=== PATIENT | male | born 1980 | race Two or more races ===

== ENCOUNTER 2020-11-24 10:55 | Outpatient (REF) | payer OTHER, SELFPAY ==
[2020-11-24 11:34] LABS: MANUAL DIFF FLAG NO
[2020-11-24 12:06] LABS: Basophils Percent Auto 0.6 % (0-2); Eosinophils Absolute Auto 0.1 X10*3/uL (0.0-0.4); Hematocrit 41.6 % (42-52); Hemoglobin 14.3 g/dl (14.0-18.0); Imm Gran Abs Auto 0.01 X10*3/uL (0.00-0.03); Imm Gran Pct Auto 0.2 % (0.0-0.4); Lymphocytes Absolute Auto 1.9 X10*3/uL (1.2-4.9); Mean Corpuscular HGB Conc 34.4 g/dl (31.0-36.0); Mean Corpuscular Volume 90.2 fL (80-98); Mean Platelet Volume 11.6 fL (9.4-12.4); Monocytes Absolute Auto 0.5 X10*3/uL (0.1-1.2); Monocytes Percent Auto 9.8 % (2-11); Neutrophils Absolute Auto 2.2 X10*3/uL (2.0-8.3); Neutrophils Percent Auto 46.4 % (45-73); Platelet Count 131 X10*3/uL (160-400); Red Blood Count 4.61 X10*6/uL (4.60-5.80); Red Cell Distribution Width 12.5 % (11.0-16.0); White Blood Count 4.7 X10*3/uL (4.8-10.8)
[2020-11-24 12:36] LABS: Alanine Aminotransferase 16 U/L (0-40); Albumin Level 4.1 g/dL (3.5-5.0); Alkaline Phosphatase 43 U/L (39-117); Anion Gap 13 (12-20); Aspartate Amino Transferase 17 U/L (5-37); Bilirubin Total 0.8 mg/dL (0.0-1.0); Blood Urea Nitrogen 17 mg/dL (9-16); Calcium 8.9 mg/dL (8.4-10.2); Carbon Dioxide 27 mmol/L (22-29); Chloride 108 mmol/L (96-108); Cholesterol 189 mg/dL; Estimated Glomerular Filt Rate > 60; Glucose Fasting 176 mg/dL (60-99); HDL Cholesterol 34 mg/dL; LDL Cholesterol Calculated 109 mg/dl; Potassium 4.5 mmol/L (3.3-5.1); Sodium 143 mmol/L (135-145); Total Protein 6.7 g/dL (6.5-8.0); Triglycerides 230 mg/dL
[2020-11-24 12:58] LABS: TSH reflex Free T4 1.04 uIU/mL (0.32-4.0)
[2020-11-24 13:15] LABS: Estimated Average Glucose 120 mg/dL; Hemoglobin A1c % 5.8 %
[2020-11-24 14:05] LABS: Creatinine Urine 225.65 mg/dL; Microalbum/Creatinine Ratio Ur 9.7 ug/mg cr
== END 2020-11-24 10:56 | disposition home or self-care (01) ==
LOC: HO.LAB 10:55
PROVIDERS: PCP Physician Assistant; Visit Provider Physician Assistant
DX: E11.9 Type 2 diabetes mellitus without complications (principal); E78.00 Pure hypercholesterolemia, unspecified
CPT/HCPCS: 36415; 80053; 80061; 82043; 83036; 84443; 85025

== ENCOUNTER 2022-01-12 15:08 | Emergency (ER) | payer OTHER, SELFPAY ==
--- NOTE | ~2022-01-12 | XR_ITS ---
EXAMINATION: XR CHEST CLINICAL INFORMATION: Covid 19 COMPARISON: Chest radiograph 08/20/2011 TECHNIQUE: Frontal view of the chest was obtained. FINDINGS: Again seen is a left chest wall neurostimulator device with a single lead extending up to the left neck. Since 2010, the device appears to have been replaced. Otherwise, no significant abnormality is noted involving the heart, lungs, mediastinum, bony thorax or soft tissues. XR/XR chest 1V IMPRESSION: Unremarkable examination. No evidence of Covid pulmonary disease.
[2022-01-12 15:20] VITALS: BP 135/87; PULSE 105; RESP 18; TEMP 37; O2SAT 99; BMI 30.8
[2022-01-12 16:04] LABS: COVID-19 Test Positive (Negative); IDNOW Serial# 16C4AD1C
[2022-01-12 16:16] LABS: Influenza A Negative (Negative); Influenza B2 Negative (Negative)
--- NOTE | 2022-01-12 16:42 | ED.URI ---
HPI - URI/Sore Throat General Chief Complaint: Upper Respiratory Symptoms Stated Complaint: cough low 02 Time Seen by Provider: 01/12/22 16:42 Source: patient Mode of arrival: ambulatory Limitations: no limitations History of Present Illness HPI Narrative: Patient otherwise healthy with history of epilepsy already received COVID vaccine including booster been sick for last 4 days with cold cough headache body aches checked his pulse ox at home on ambulation was 93% as low-grade fever no loss of taste sensation no other family member sick Related Data Home Medications Medication Instructions Recorded Confirmed divalproex 500 mg tablet,delayed 1,000 mg PO BID 08/24/20 11/23/20 release (Depakote) lamotrigine 100 mg tablet 100 mg PO BID 08/24/20 11/23/20 (Lamictal) cholecalciferol (vitamin D3) 50 50 mcg PO DAILY 06/29/21 mcg (2,000 unit) capsule Previous Rx's Medication Instructions Recorded atorvastatin 80 mg tablet 80 mg PO BEDTIME 30 Days #30 tab 11/23/20 cephalexin 500 mg capsule 500 mg PO Q12H 10 Days #20 cap 06/29/21 dulaglutide 0.75 mg/0.5 mL 0.75 mg (0.5 mL) SUBCUT QWEEK 28 12/13/21 subcutaneous pen injector Days #2 ml (Trulicity) albuterol sulfate 90 mcg/actuation 2 puff INHALATION Q4-6H PRN #8.5 g 01/12/22 aerosol inhaler (ProAir HFA) codeine 10 mg-guaifenesin 100 mg/5 10 ml PO Q6H PRN #237 ml 01/12/22 mL oral liquid dexamethasone 6 mg tablet 6 mg PO DAILY #6 tab 01/12/22 (Decadron) Allergies Allergy/AdvReac Type Severity Reaction Status Date / Time No Known Allergies Allergy Unknown NOT Verified 06/29/21 16:22 APPLICABLE Review of Systems Review of Systems: Yes all other systems are reviewed and are negative PMFSH Past Medical History Surgical History History of cholecystectomy Family History Family History Mother No problems noted. Father Prostate cancer Maternal Uncle CAD (coronary artery disease) Social History Social History Alcohol intake: never Patient Tobacco Use Status: Former Tobacco user Advance Directives: No Advance Directives Information Provided: No Physical Exam Vital Signs: Vital Signs: Last Vital Signs Temp 98.6 F 01/12/22 15:20 Pulse 105 H 01/12/22 17:11 Resp 18 01/12/22 17:11 BP 135/87 01/12/22 15:20 Pulse Ox 99 01/12/22 15:20 BMI result Body Mass Index 30.8 Appearance: Alert. Oriented X3. No acute distress. Eyes: No pallor or icterus ENT: Pharynx normal. Oral Mucosa moist Neck: Normal inspection. Neck supple. CVS: Normal heart rate and rhythm. Pulses normal. Respiratory: No respiratory distress. Equal air entry bilateral, no wheezing/rales/rhonchi Abdomen: Soft and nontender. Bowel sounds are present, Skin: Skin warm and dry. Normal skin color. Normal skin turgor. Extremities: No lower extremity edema. Neuro: Oriented X 3. MDM - URI/Sore Throat MDM Narrative Medical decision making narrative: Patient COVID-19 saturating 99% in the ER chest x-ray negative for any infiltrate says that patient feels more short of breath when ambulates will discharge patient home on supportive treatment Decadron albuterol inhaler cough syrup Lab Data Attestation: I reviewed the patient's lab results. Labs: Lab Results 01/12/22 01/12/22 Range/Units 15:42 15:42 COVID-19 ([facility]) Positive A (Negative) COVID-19 Clin Com See Note Influenza Type A (ERNESTINE) Negative (Negative) Influenza Type B (ERNESTINE) Negative (Negative) Influenza A & B Note See Note Discharge Plan Discharge Clinical Impression: COVID-19 Patient Disposition: Home, Self-Care Instructions: COVID-19 (Coronavirus Disease 2019) (ED) Additional Instructions: Social distancing as advised Use albuterol inhaler 2 puffs every 4-6 hours as needed for increased shortness of breath Decadron as advised Cough syrup as prescribed Stay hydrated take Tylenol Motrin for body aches Prescriptions: New dexamethasone [Decadron] 6 mg tablet 6 mg PO DAILY Qty: 6 0RF codeine-guaifenesin 10-100 mg/5 mL liquid 10 ml PO Q6H PRN (Reason: cough) Qty: 237 0RF albuterol sulfate [ProAir HFA] 90 mcg/actuation HFA aerosol inhaler 2 puff inhalation Q4-6H PRN (Reason: Wheezing) Qty: 8.5 0RF No Action Trulicity 0.75 mg/0.5 mL pen injector 0.75 mg subcut QWEEK 28 Days Qty: 2 0RF lamotrigine [Lamictal] 100 mg tablet 100 mg PO BID 0RF divalproex [Depakote] 500 mg tablet,delayed release (DR/EC) 1,000 mg PO BID 0RF atorvastatin 80 mg tablet 80 mg PO BEDTIME 30 Days Qty: 30 3RF cholecalciferol (vitamin D3) 50 mcg (2,000 unit) capsule 50 mcg PO DAILY 0RF cephalexin 500 mg capsule 500 mg PO Q12H 10 Days Qty: 20 0RF
[2022-01-12 17:11] VITALS: PULSE 105; RESP 18; O2SAT 99
[2022-01-12] MEDS: Albuterol Sulfate 90 MCG 8 GM INHALER 2 PUFF INHALE (17:11)
[2022-01-12] MEDS: dexAMETHasone 6 MG TABLET PO (17:18)
== END 2022-01-12 17:52 | disposition home or self-care (01) ==
PROVIDERS: Emergency Provider Internal Medicine; PCP Physician Assistant
DX: U07.1 COVID-19 (principal); R05.9 Cough, unspecified; Z99.81 Dependence on supplemental oxygen; Z79.899 Other long term (current) drug therapy; Z87.891 Personal history of nicotine dependence
CPT/HCPCS: 71045; 87502; 87635; 94640; 94664; 99283; 99284; J8540

== ENCOUNTER → 2022-11-11 13:37 | Outpatient (BNVA) | payer OTHER, SELFPAY | PROVIDERS: PCP Physician Assistant; Visit Provider Nurse Practitioner Family | DX: G40.909 Epilepsy, unspecified, not intractable, without status epilepticus (principal); G47.26 Circadian rhythm sleep disorder, shift work type | CPT/HCPCS: 99202 ==

== ENCOUNTER 2023-05-22 14:29 | Outpatient (AMB) | payer MEDICAID, SELFPAY ==
--- NOTE | 2023-05-22 14:39 | MHC.OFFVIS ---
Intake Vital Signs 05/22/23 14:40 Height 5 ft 9 in Weight 211 lb BMI 31.2 BP 130/84 Blood Pressure Location Rt brachial Position Sitting Pulse 85 Pulse Source Pulse Oximeter Pulse Oximetry (%) 98 Oxygen Delivery Method Room Air Intake Visit Reasons: 6m follow up Epilepsy - LVM Intake Note: Patient presents for 6 month follow up epilepsy. Patient states I haven't had any attacks since seeing her but I had an episode that I experienced as a child to have like an awake seizure where I feel spaced out and funny. . Allergies dulaglutide [From [facility]] Adverse Reaction (Intermediate, Verified 12/20/22 14:52) GI upset metformin Adverse Reaction (Intermediate, Verified 12/20/22 14:52) Diarrhea Medication List - Last Reconciled 05/22/23 by CALVIN Ledbetter atorvastatin 80 mg PO BEDTIME 30 days cholecalciferol (vitamin D3) 50 mcg PO DAILY divalproex (Depakote) 1,000 mg (2 x 500 mg) PO BID 90 days lamotrigine (Lamictal) 100 mg PO BID 90 days linagliptin (Tradjenta) 5 mg PO DAILY 90 days mupirocin calcium 2% 1 appl topical BID 15 days naproxen 500 mg PO BID 15 days HPI HPI Comments History of Present Illness Details 43-yr-old male presents for f/u visit, accompanied by his partner. Pt denies any significant interval medical changes. Pt reports that he has had 1 known episode in Apr- he was spacing out f/b feeling shaky. He was at work. 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 He denies any provoking factors. He is complaint w/ his AEDs- takes at 9pm and 5am (his break times at work), but may adjust schedule on his days off. He works from 7pm-7am. He has not had a convulsive episode in at least 6 years. Pt forgot to have labs done. [facility] Surgical History History of cholecystectomy Family History Mother No problems noted. Father Prostate cancer Maternal Uncle CAD (coronary artery disease) Other Mental health disorder Social History Housing: House Alcohol intake: never Patient Tobacco Use Status: Never used Tobacco e-Cigarette/Vaping Use: Never Used Second Hand Smoke Exposure: Yes service: No Current occupational status: employed Current occupation: [employer] Cognitive needs: No Hearing needs: No Vision needs: No Review of Systems Const All systems reviewed & are unremarkable except as noted in HPI and below Physical Exam Vital Signs: Last Vital Signs Pulse 85 05/22/23 14:40 BP 130/84 05/22/23 14:40 Pulse Ox 98 05/22/23 14:40 Oxygen Delivery Method Room Air 05/22/23 14:40 BMI result Body Mass Index 31.2 Const General: cooperative and no acute distress Orientation/consciousness: patient oriented x3 HEENT Head: Yes normocephalic Resp Effort & Inspection: normal respiratory effort and able to speak in complete sentences Neuro General: patient oriented x3, gait normal and CN's II-XI intact bilaterally Cognition (Neuro): normal cognition Motor exam (neuro): 5/5 motor strength present throughout Psych Appearance: grossly normal Mental Status: mental status grossly normal Speech and movement: Normal speech and movement present Affect: normal affect Attitude: cooperative Thought process: Normal thought process present Thought content: Normal thought content present Insight: Good insight present (Psych) Judgement: Good judgement present (Psych) Assessment & Plan Assessment & Plan (1) Epilepsy: Comment: last seizure > 6 yrs ago. h/o VPN. 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 All lab orders (including from PCP) printed and given to pt- he will do today. Note pt took his AEDs at 5am this am. Continue Lamotrigine 10omg bid- however adjust to q 12 hrs Continue Valproate 1000 mg bid- however adjust to q 12 hrs Melatonin prn- for sleep. Pt advsied to NOT drive within 6 months of any seizure activity w/ AMS. Pt to f/u in 6 months or sooner prn. 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
[2023-05-22 14:40] VITALS: BP 130/84; PULSE 85; O2SAT 98; BMI 31.2
== END 2023-05-22 15:23 | disposition home or self-care (01) ==
PROVIDERS: Visit Provider Nurse Practitioner Family
DX: G40.909 Epilepsy, unspecified, not intractable, without status epilepticus (principal); G47.26 Circadian rhythm sleep disorder, shift work type
CPT/HCPCS: 99214

== ENCOUNTER → 2023-05-22 14:29 | Outpatient (BNVA) | payer MEDICAID, SELFPAY | PROVIDERS: Visit Provider Nurse Practitioner Family | DX: G40.909 Epilepsy, unspecified, not intractable, without status epilepticus (principal); G47.26 Circadian rhythm sleep disorder, shift work type | CPT/HCPCS: 99212 ==

== ENCOUNTER 2023-06-27 21:53 | Emergency (ER) | payer MEDICAID, SELFPAY ==
--- NOTE | ~2023-06-27 | CT_ITS ---
EXAMINATION: CT ABDOMEN AND PELVIS WITH CONTRAST CLINICAL INFORMATION: Umbilical pain COMPARISON: None available. TECHNIQUE: Multidetector volumetric images were obtained from the superior aspect of the liver through the pubic symphysis following administration 85 mL of Omnipaque 350 intravenous contrast. Sagittal and coronal reformatted images were obtained on the technologist's workstation. Oral contrast: No This CT examination was performed using dose optimization techniques as appropriate, variously including the following: *Automated exposure control *Adjustment of mA and/or kV according to patient size (this includes techniques or standardized protocols for targeted exams where dose is matched to indication/reason for exam; i.e. extremities or head) *Use of iterative reconstruction technique DLP: 661 mGy-cm FINDINGS: LUNG BASES: Dependent bibasilar atelectasis. LIVER, GALLBLADDER, AND BILIARY TREE: The liver is normal in size, shape, and attenuation. No focal hepatic lesion or biliary ductal dilatation is present. Small calcified granulomas in the right lobe. Patient is status post cholecystectomy. PANCREAS: Unremarkable. SPLEEN: Unremarkable. ADRENAL GLANDS: Unremarkable. KIDNEYS AND URETERS: Bilateral nephrograms are symmetric. No hydronephrosis or obstructing calculus identified. BLADDER: Unremarkable. GASTROINTESTINAL TRACT: There is some fecalization of bowel loops in the central to right abdomen, though without significant dilation. Distalmost small bowel is collapsed, with transition in the lateral right lower quadrant on image 64/107. This could represent a developing small bowel obstruction. There is a thick-walled appearance of the collapsed ascending, descending, and sigmoid colon raising concern for colitis. Appendix is collapsed. Trace free fluid in the lower abdomen. No free air is seen. ABDOMINAL WALL: No significant hernia is appreciated. LYMPH NODES: Normal. VASCULAR: Unremarkable. PELVIC VISCERA: Unremarkable. OSSEOUS STRUCTURES: Unremarkable. CT/CT abdomen pelvis w IV con IMPRESSION: 1. Fecalization of small bowel loops in the central to right abdomen. Though bowel is not significantly dilated, there is transition to collapsed distal small bowel in the lateral right lower quadrant, therefore raising concern for a developing small bowel obstruction. 2. Thick-walled appearance of the collapsed ascending, descending, and sigmoid colon, suggesting colitis. 3. Trace free fluid in the lower abdomen.
[2023-06-27 22:01] VITALS: BP 134/83; PULSE 81; RESP 20; TEMP 36.7; O2SAT 97; BMI 31.7
[2023-06-27 22:21] LABS: MANUAL DIFF FLAG NO
[2023-06-27 22:30] LABS: Basophils Percent Auto 0.4 % (0-2); Eosinophils Absolute Auto 0.1 X10*3/uL (0.0-0.4); Eosinophils Percent Auto 1.4 % (0-4); Hemoglobin 15.1 g/dl (14.0-18.0); Imm Gran Abs Auto 0.01 X10*3/uL (0.00-0.03); Imm Gran Pct Auto 0.2 % (0.0-0.4); Lymphocytes Absolute Auto 1.4 X10*3/uL (1.2-4.9); Lymphocytes Percent Auto 24.1 % (20-40); Mean Corpuscular HGB Conc 34.3 g/dl (31.0-36.0); Mean Corpuscular Hemoglobin 29.7 pg (27.0-33.0); Mean Corpuscular Volume 86.6 fL (80.0-98.0); Mean Platelet Volume 11.3 fL (9.4-12.4); Monocytes Absolute Auto 0.5 X10*3/uL (0.1-1.2); Monocytes Percent Auto 8.8 % (2-11); Neutrophils Absolute Auto 3.7 x10*3/uL (2.0-8.3); Neutrophils Percent Auto 65.1 % (45-73); Platelet Count 112 X10*3/uL (160-400); Red Blood Count 5.08 X10*6/uL (4.60-5.80); Red Cell Distribution Width 12.3 % (11.0-16.0); White Blood Count 5.7 X10*3/uL (4.8-10.8)
[2023-06-27 22:43] LABS: Alanine Aminotransferase 24 U/L (0-40); Albumin Level 4.3 g/dL (3.5-5.0); Alkaline Phosphatase 53 U/L (39-117); Anion Gap 14 (12-20); Aspartate Amino Transferase 18 U/L (5-37); Bilirubin Direct 0.3 mg/dL (0.0-0.5); Bilirubin Total 0.9 mg/dL (0.0-1.0); Blood Urea Nitrogen 13 mg/dL (9-16); Calcium 10.1 mg/dL (8.4-10.2); Carbon Dioxide 28 mmol/L (22-29); Chloride 102 mmol/L (96-108); Creatinine Clr Calc Pharmacy 114.2; Estimated Glomerular Filt Rate > 60; Glucose Random 398 mg/dL (60-115); Potassium 4.7 mmol/L (3.3-5.1); Sodium 139 mmol/L (135-145); Total Protein 7.2 g/dL (6.5-8.0)
[2023-06-28 00:56] VITALS: BP 122/80; PULSE 72; RESP 17; TEMP 36.6; O2SAT 99
[2023-06-28] MEDS: iohexoL 350 MG/ML 100 ML INFUS..BTL 85 ML IV (02:06)
[2023-06-28] MEDS: 0.9 % Sodium Chloride 1,000 ML 999 ML IV (02:17)
--- NOTE | 2023-06-28 03:04 | ED_ITS ---
HPI - Abdominal Pain General Chief Complaint: Abdominal Pain Stated Complaint: sharp abd pain Time Seen by Provider: 06/28/23 01:01 Source: patient and family () Mode of arrival: ambulatory History of Present Illness HPI narrative: 43-year-old male who is noted to be diabetic states that he ate dinner at approximately 17:00 this evening and then began experiencing periumbilical discomfort that was nonradiating in nature and was associated with nausea but denies any vomiting and also reports an episode of diarrhea but otherwise denies any fevers or chills. Patient is status post prior cholecystectomy and otherwise denies any intra-abdominal surgeries. Related Data Home Medications Medication Instructions Recorded Confirmed cholecalciferol (vitamin D3) 50 50 mcg PO DAILY 06/29/21 05/22/23 mcg (2,000 unit) capsule Previous Rx's Medication Instructions Recorded linagliptin 5 mg tablet (Tradjenta) 5 mg PO DAILY 90 days #90 tabs 12/20/22 mupirocin calcium 2 % topical cream 1 appl topical BID 15 days #30 12/20/22 grams naproxen 500 mg tablet 500 mg PO BID 15 days #30 tabs 12/20/22 divalproex 500 mg tablet,delayed 1,000 mg (2 x 500 mg) PO BID 90 02/13/23 release (Depakote) days #360 tabs lamotrigine 100 mg tablet 100 mg PO BID 90 days #180 tabs 02/13/23 (Lamictal) atorvastatin 80 mg tablet 80 mg PO BEDTIME #90 tabs 06/08/23 Allergies Allergy/AdvReac Type Severity Reaction Status Date / Time [facility] AdvReac Intermediate GI upset Verified 12/20/22 14:52 metformin AdvReac Intermediate Diarrhea Verified 12/20/22 14:52 Review of Systems Review of Systems Pertinent positives and negatives as stated in HPI PMFSH Past Medical History Source: nursing notes reviewed Surgical History History of cholecystectomy Family History Family History Mother No problems noted. Father Prostate cancer Maternal Uncle CAD (coronary artery disease) Other Mental health disorder Social History Social History Housing: House Alcohol intake: never Patient Tobacco Use Status: Never used Tobacco Smoked in Last 30 Days: No e-Cigarette/Vaping Use: Never Used Second Hand Smoke Exposure: Yes Advance Directives: No Advance Directives Information Provided: No service: No Current occupational status: employed Current occupation: [employer] Cognitive needs: No Hearing needs: No Vision needs: No Physical Exam ED Vital Signs: Vital Signs - 24 hr 06/27/23 22:01 06/28/23 00:56 06/28/23 04:00 Temperature 98.0 F 97.8 F 98.2 F Pulse Rate 81 72 88 Respiratory Rate 20 17 Blood Pressure 134/83 122/80 124/82 Pulse Oximetry 97 99 99 Oxygen Delivery Method Room Air Room Air Room Air BMI result Body Mass Index 31.7 VITAL SIGNS: Reviewed. GENERAL: Well developed, well nourished, in no acute distress. HEAD: Normocephalic/atraumatic EYES: PERRLA, EOMI EARS: Ext canals without abnormality NOSE: Nares patent bilateral OROPHARYNX: no oral lesions noted, posterior pharynx clear NECK: Supple, no adenopathy LUNGS: Normal breath sounds. No adventitious sounds or accessory muscle use. SpO2<99> CARDIOVASCULAR: Regular rate and rhythm without noted murmurs ABDOMEN: Soft, periumbilical discomfort without rebound, non-distended with bowel sounds. MUSCULOSKELETAL: No tenderness, deformities, or effusions noted on gross inspection. EXTREMITIES: No cyanosis, clubbing or edema. SKIN: Inspection of the skin reveals no rashes NEUROLOGIC: Alert and oriented x 4. Strength and sensation to light touch were grossly intact x 4. Medical Decision Making Medical Decision Making MDM Narrative: 43-year-old male with history and clinical presentation, DDX: Gastroenteritis, less likely felt to be appendicitis but possibility of urinary tract infection/renal colic or unrelated pancreatitis. I reviewed all investigations and hematologic indices are negative for leukocytosis or left shift, there is no anemia but there is chronically stable thrombocytopenia. Chemistry indices are grossly within normal limits with the exception of hyperglycemia. There is no ALEKSANDER and electrolytes as well as liver enzymes are grossly within normal limits. There is no evidence of DKA or HHS. Patient did receive IV fluids and on re-evaluation is feeling much better. CT scan described the possibility of possible obstruction but patient reports that his pain has completely resolved, he has continued to pass flatus and have multiple loose stools which we attempted to send down for a GI panel but then he was unable to provide a sufficient sample. In addition, there is a suggestion of colitis which I feel given the absence of fever and leukocytosis is likely viral in nature. I discussed all results and findings with the patient and his at bedside, he is feeling better and he is ready to go home. He was strongly encouraged to follow-up with his primary care doctor. My interpretation is patient had viral colitis. Differential Diagnosis Differential Diagnoses: The differential diagnosis associated with the presentation includes Please see the discussion above Admission/Observation Consideration of admission/observation: Escalation of care including admission/observation considered Please see the discussion above Lab Data MDM Lab Attestation statement: I reviewed the patient's lab results. Please see the discussion above 06/27/23 22:18 06/27/23 22:18 Labs: Lab Results 06/27/23 06/28/23 Range/Units 22:18 03:45 WBC 5.7 (4.8-10.8) X10*3/uL RBC 5.08 (4.60-5.80) X10*6/uL Hgb 15.1 (14.0-18.0) g/dl Hct 44.0 (42.0-52.0) % MCV 86.6 (80.0-98.0) fL MCH 29.7 (27.0-33.0) pg MCHC 34.3 (31.0-36.0) g/dl RDW 12.3 (11.0-16.0) % Plt Count 112 L (160-400) X10*3/uL MPV 11.3 (9.4-12.4) fL Immature Gran % (Auto) 0.2 (0.0-0.4) % Neut % (Auto) 65.1 (45-73) % Lymph % (Auto) 24.1 (20-40) % [place] % (Auto) 8.8 (2-11) % Eos % (Auto) 1.4 (0-4) % Baso % (Auto) 0.4 (0-2) % Lymph # (Auto) 1.4 (1.2-4.9) X10*3/uL [place] # (Auto) 0.5 (0.1-1.2) X10*3/uL Eos # (Auto) 0.1 (0.0-0.4) X10*3/uL Baso # (Auto) 0.0 (0.0-0.2) X10*3/uL Abs Immat Gran (auto) 0.01 (0.00-0.03) X10*3/uL Absolute Neuts (auto) 3.7 (2.0-8.3) x10*3/uL Absolute Nucleated RBC 0.000 (0.0-0.012) X10*3/uL Nucleated RBC % (auto) 0.0 (0.0-0.2) /100WBC Sodium 139 (135-145) mmol/L Potassium 4.7 (3.3-5.1) mmol/L Chloride 102 (96-108) mmol/L Carbon Dioxide 28 (22-29) mmol/L Anion Gap 14 (12-20) BUN 13 (9-16) mg/dL Creatinine 0.95 (0.5-1.4) mg/dL Estim Creat Clear Calc 114.2 Estimated GFR > 60 POC Glucose 236 H (60-115) mg/dL Random Glucose 398 H* (60-115) mg/dL Calcium 10.1 D (8.4-10.2) mg/dL Total Bilirubin 0.9 (0.0-1.0) mg/dL Direct Bilirubin 0.3 (0.0-0.5) mg/dL AST 18 (5-37) U/L ALT 24 (0-40) U/L Alkaline Phosphatase 53 (39-117) U/L Total Protein 7.2 (6.5-8.0) g/dL Albumin 4.3 (3.5-5.0) g/dL Radiology Impression Discussion of test interpretation with radiology: I have reviewed the radiologist's reading. Radiologist Impression: Please see the discussion above External Record Review External record reviewed: Outpatient record, Prior outpatient labs and Prior outpatient radiology Chronic Conditions Patient?s care impacted by: Diabetes Medications Administered Discontinued Medications Generic Name Dose Route Start Last Admin Trade Name Freq PRN Reason Stop Dose Admin Sodium Chloride 1,000 mls @ 999 mls/hr 06/28/23 01:45 06/28/23 03:35 Ns IV 06/28/23 02:45 Infused .Q1H1M ANDREI Infusion Iohexol 85 ml 06/28/23 02:06 06/28/23 02:06 Iohexol 350 Mg/Ml 100 Ml Infus..Btl IV 06/28/23 02:07 85 ml ONCE ONE Administration Critical Care Time Critical Care Time Critical Care Time: Yes Total Critical Care Time: 30 Attestation: I personally attest to this time spent taking care of the patient. Discharge Plan Discharge Clinical Impression: Colitis Patient Disposition: Home, Self-Care Instructions: Colitis (ED) Additional Instructions: 1. Resume all home medications as prescribed. 2. Stick to a gentle diet for the next 24-48 hours. 3. Please follow-up with your primary care doctor in the next 2-3 days. 4. If you have any worsening of your symptoms to include fevers or chills to include nausea or vomiting please do not hesitate to return to the emergency room. Prescriptions: No Action divalproex [Depakote] 500 mg tablet,delayed release (DR/EC) 1,000 mg PO BID 90 Days Qty: 360 1RF lamotrigine [Lamictal] 100 mg tablet 100 mg PO BID 90 Days Qty: 180 1RF atorvastatin 80 mg tablet 80 mg PO BEDTIME Qty: 90 2RF cholecalciferol (vitamin D3) 50 mcg (2,000 unit) capsule 50 mcg PO DAILY Tradjenta 5 mg tablet 5 mg PO DAILY 90 Days Qty: 90 2RF mupirocin calcium 2 % cream 1 appl topical BID 15 Days Qty: 30 0RF naproxen 500 mg tablet 500 mg PO BID 15 Days Qty: 30 2RF Referrals: Daron Pardo PA-C [Primary Care Provider] -
[2023-06-28 03:49] LABS: Glucose, Whole Blood 236 mg/dL (60-115)
[2023-06-28 04:00] VITALS: BP 124/82; PULSE 88; TEMP 36.8; O2SAT 99
== END 2023-06-28 07:43 | disposition home or self-care (01) ==
PROVIDERS: Emergency Provider Student in an Organized Health Care Education/Training Program; PCP Physician Assistant
DX: K52.9 Noninfective gastroenteritis and colitis, unspecified (principal); R10.33 Periumbilical pain; E11.9 Type 2 diabetes mellitus without complications; E78.5 Hyperlipidemia, unspecified; Z90.49 Acquired absence of other specified parts of digestive tract; Z79.85 Long-term (current) use of injectable non-insulin antidiabetic drugs; Z79.84 Long term (current) use of oral hypoglycemic drugs
CPT/HCPCS: 36415; 74177; 80048; 80076; 82947; 85025; 96360; 99284; Q9967

== ENCOUNTER 2023-11-20 15:19 | Outpatient (AMB) | payer OTHER, SELFPAY ==
--- NOTE | 2023-11-20 15:23 | MHC.OFFVIS ---
Intake Vital Signs 11/20/23 15:24 Height 5 ft 9 in Weight 210 lb 2 oz BMI 31.0 BP 108/70 Blood Pressure Location Rt brachial Position Sitting Respiration 16 Pulse 93 Pulse Source Pulse Oximeter Pulse Oximetry (%) 98 Oxygen Delivery Method Room Air Intake Visit Reasons: 6 mnts f/u Intake Note: Pt presents for a 6 month follow up for epilepsy. Vamp Wetter Required: No Allergies dulaglutide [From [facility]] Adverse Reaction (Intermediate, Verified 11/20/23 15:24) GI upset metformin Adverse Reaction (Intermediate, Verified 11/20/23 15:24) Diarrhea Medication List - Last Reconciled 11/20/23 by Patricia Agrawal MD atorvastatin 80 mg PO BEDTIME cholecalciferol (vitamin D3) 50 mcg PO DAILY divalproex (Depakote) 1,000 mg (2 x 500 mg) PO BID 90 days lamotrigine (Lamictal) 100 mg PO BID 90 days linagliptin (Tradjenta) 5 mg PO DAILY 90 days mupirocin calcium 2% 1 appl topical BID 15 days naproxen 500 mg PO BID 15 days HPI HPI Comments History of Present Illness Details 43-yr-old male presents for f/u visit, accompanied by his partner. Pt denies any significant interval medical changes. No episodes since last visit and he has been taking his antiepileptics on time. He is complaint w/ his AEDs- takes at 8pm and 8am (his break times at work), but may adjust schedule on his days off. He works from 7pm-7am. He has not had a convulsive episode in at least 6 years. Reviewed labs - from 05/27 and 06/26 - he had mild decreased platelets and random glucose was high. He is a diabetic and followed up by PCP. COUNT INCLUDES [facility] Surgical History History of cholecystectomy Family History Mother No problems noted. Father Prostate cancer Maternal Uncle CAD (coronary artery disease) Other Mental health disorder Social History Housing: House Alcohol intake: never Patient Tobacco Use Status: Never used Tobacco e-Cigarette/Vaping Use: Never Used Second Hand Smoke Exposure: Yes service: No Current occupational status: employed Current occupation: [employer] Cognitive needs: No Hearing needs: No Vision needs: No Physical Exam Vital Signs: Last Vital Signs Pulse 93 11/20/23 15:24 Resp 16 11/20/23 15:24 BP 108/70 11/20/23 15:24 Pulse Ox 98 11/20/23 15:24 Oxygen Delivery Method Room Air 11/20/23 15:24 BMI result Body Mass Index 31.0 Const General: cooperative and no acute distress Orientation/consciousness: patient oriented x3 HEENT Head: Yes normocephalic Resp Effort & Inspection: normal respiratory effort and able to speak in complete sentences Neuro General: patient oriented x3, gait normal and CN's II-XI intact bilaterally Cognition (Neuro): normal cognition Motor exam (neuro): 5/5 motor strength present throughout Psych Appearance: grossly normal Mental Status: mental status grossly normal Speech and movement: Normal speech and movement present Affect: normal affect Attitude: cooperative Thought process: Normal thought process present Thought content: Normal thought content present Insight: Good insight present (Psych) Judgement: Good judgement present (Psych) Assessment & Plan Assessment & Plan (1) Epilepsy: Comment: last seizure > 6 yrs ago. h/o VPN. 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 Continue Lamotrigine 10omg bid- however adjust to q 12 hrs Continue Valproate 1000 mg bid- however adjust to q 12 hrs Melatonin prn- for sleep. Pt advsied to NOT drive within 6 months of any seizure activity w/ AMS. Pt to f/u in 6 months or sooner prn. Orders: Orders Comprehensive Met. Panel Today E11.9 - Type 2 diabetes mellitus without complications, G40.909 - Epilepsy, unspecified, not intractable, without status epilepticus Complete Blood Count Auto Diff Today E11.9 - Type 2 diabetes mellitus without complications, G40.909 - Epilepsy, unspecified, not intractable, without status epilepticus AMB Hemoglobin A1c Today E11.9 - Type 2 diabetes mellitus without complications, G40.909 - Epilepsy, unspecified, not intractable, without status epilepticus, Z13.9 - Encounter for screening, unspecified Coding Level of Care Code Est Pt Level 4 (45323) Diagnoses Nonintractable epilepsy without status epilepticus, unspecified epilepsy type G40.909 Epilepsy type: unspecified Intractability: not intractable Status epilepticus: without status epilepticus Shift work sleep disorder G47.26
[2023-11-20 15:24] VITALS: BP 108/70; PULSE 93; RESP 16; O2SAT 98; BMI 31.0
== END 2023-11-20 15:49 | disposition home or self-care (01) ==
PROVIDERS: PCP Physician Assistant; Visit Provider Psychiatry & Neurology Neurology
DX: G40.909 Epilepsy, unspecified, not intractable, without status epilepticus (principal); G47.26 Circadian rhythm sleep disorder, shift work type
CPT/HCPCS: 99214

== ENCOUNTER → 2023-11-20 15:19 | Outpatient (BNVA) | payer OTHER, SELFPAY | PROVIDERS: PCP Physician Assistant; Visit Provider Psychiatry & Neurology Neurology | DX: G40.909 Epilepsy, unspecified, not intractable, without status epilepticus (principal); G47.26 Circadian rhythm sleep disorder, shift work type | CPT/HCPCS: 99212 ==

== ENCOUNTER 2023-11-25 09:11 | Outpatient (REF) | payer OTHER, SELFPAY ==
[2023-11-25 09:38] LABS: MANUAL DIFF FLAG NO
[2023-11-25 09:50] LABS: Estimated Average Glucose 171 mg/dL; Hemoglobin A1c % 7.6 % (<6.0)
[2023-11-25 10:06] LABS: Valproate 92.2 mcg/mL (50.0-100.0)
[2023-11-25 10:08] LABS: Alanine Aminotransferase 21 U/L (0-40); Albumin Level 4.2 g/dL (3.5-5.0); Alkaline Phosphatase 47 U/L (39-117); Anion Gap 12 (12-20); Aspartate Amino Transferase 18 U/L (5-37); Bilirubin Total 0.8 mg/dL (0.0-1.0); Blood Urea Nitrogen 13 mg/dL (9-16); Calcium 9.4 mg/dL (8.4-10.2); Carbon Dioxide 29 mmol/L (22-29); Chloride 105 mmol/L (96-108); Cholesterol 107 mg/dL (<200); Estimated Glomerular Filt Rate > 60; Glucose Fasting 128 mg/dL (60-99); Glucose Random 128 mg/dL (60-115); HDL Cholesterol 44 mg/dL (>40); LDL Cholesterol Calculated 51 mg/dL (<100); Potassium 4.1 mmol/L (3.3-5.1); Sodium 142 mmol/L (135-145); Total Protein 6.8 g/dL (6.5-8.0); Triglycerides 64 mg/dL (<150)
[2023-11-25 10:22] LABS: Basophils Percent Auto 0.3 % (0-2); Eosinophils Absolute Auto 0.1 X10*3/uL (0.0-0.4); Eosinophils Percent Auto 1.9 % (0-4); Hematocrit 43.2 % (42.0-52.0); Hemoglobin 15.2 g/dl (14.0-18.0); Imm Gran Abs Auto 0.02 X10*3/uL (0.00-0.03); Imm Gran Pct Auto 0.3 % (0.0-0.4); Lymphocytes Absolute Auto 2.8 X10*3/uL (1.2-4.9); Lymphocytes Percent Auto 37.6 % (20-40); Mean Corpuscular HGB Conc 35.2 g/dl (31.0-36.0); Mean Platelet Volume 11.4 fL (9.4-12.4); Monocytes Absolute Auto 0.6 X10*3/uL (0.1-1.2); Monocytes Percent Auto 7.5 % (2-11); Neutrophils Absolute Auto 3.8 x10*3/uL (2.0-8.3); Neutrophils Percent Auto 52.4 % (45-73); Platelet Count 127 X10*3/uL (160-400); Red Blood Count 4.91 X10*6/uL (4.60-5.80); Red Cell Distribution Width 12.4 % (11.0-16.0); White Blood Count 7.3 X10*3/uL (4.8-10.8)
[2023-11-25 10:31] LABS: TSH reflex Free T4 1.63 uIU/mL (0.32-4.0)
[2023-11-29 09:03] LABS: Lamotrigine Lamictal 13.9 mcg/mL (2.5-15.0)
== END 2023-11-25 09:12 | disposition home or self-care (01) ==
LOC: HO.LAB 09:11
PROVIDERS: Nurse Practitioner Family; Psychiatry & Neurology Neurology; PCP Physician Assistant; Visit Provider Physician Assistant
DX: E11.9 Type 2 diabetes mellitus without complications (principal); G40.909 Epilepsy, unspecified, not intractable, without status epilepticus; E78.00 Pure hypercholesterolemia, unspecified
CPT/HCPCS: 36415; 80053; 80061; 80164; 80175; 83036; 84443; 85025; 85027

== ENCOUNTER 2024-01-25 08:24 | Outpatient (AMB) | payer OTHER, SELFPAY ==
[2024-01-25 08:34] VITALS: BP 126/78; PULSE 85; O2SAT 98; BMI 31.0
--- NOTE | 2024-01-25 08:34 | A.OFFPC_ITS ---
Vital Signs 01/25/24 08:34 Height 5 ft 9 in Weight 210 lb 0.6 oz BMI 31.0 BP 126/78 Blood Pressure Location Lt brachial Position Sitting Pulse 85 Pulse Source Pulse Oximeter Pulse Oximetry (%) 98 Oxygen Delivery Method Room Air Intake Visit Reasons: DM follow up Physical Optics Teacher Required: No Allergies dulaglutide [From [facility]] Adverse Reaction (Intermediate, Verified 01/25/24 08:44) GI upset metformin Adverse Reaction (Intermediate, Verified 01/25/24 08:44) Diarrhea Medication List - Last Reconciled 01/25/24 by Daron Pardo PA-C atorvastatin 80 mg PO BEDTIME cholecalciferol (vitamin D3) 50 mcg PO DAILY divalproex (Depakote) 1,000 mg (2 x 500 mg) PO BID 90 days lamotrigine (Lamictal) 100 mg PO BID 90 days linagliptin (Tradjenta) 5 mg PO DAILY 90 days mupirocin calcium 2% 1 appl topical BID 15 days naproxen 500 mg PO BID 15 days Tobacco use date assessed: 01/25/24 Dental Screening Dental Screen Date: 01/25/24 Did you have a dental visit in the last 12 months?: Yes Did you have a dental problem in the last 6 months where you did not have access to dental care?: No Was dental information given to patient?: Patient has dentist HPI DM follow up HPI Details Patient is a 43 year male here today for follow-up visit.? Patient has a past medical history significant for type 2 diabetes hyperlipidemia, history of epilepsy. Concern--> patient reports chronic abdominal pain and distension usually worse at night or after he eats. He did go to the ER in June of [address] of abdomen did show evidence colitis and fecalization of the small bowel. Will try to set him up with GI for possible colonoscopy to evaluate the colitis. Epilepsy: Followed by Neurology,? He has not had a seizure many years and continues on both divalproex and lamotrigine. .. Type 2 diabetes:? Has been out of Tradjenta for the past few months. Most recent A1c slightly elevated above 7.? Also metformin has given him GI upset. PLAN: Will restart Tradjenta 5 mg daily which helped him with glycemic control in the past. Laboratory Tests 08/24/20 06/29/22 12/20/22 08:45 15:50 14:31 RBC Hgb Random Glucose Fasting Glucose Hgb A1c (Clinic) 7.9 H 8.6 H 6.7 H Hemoglobin A1c % LDL Cholesterol, C alc TSH 06/27/23 11/25/23 22:18 09:36 RBC 4.91 Hgb 15.2 Random Glucose 398 H* 128 H Fasting Glucose 128 H Hgb A1c (Clinic) Hemoglobin A1c % 7.6 H LDL Cholesterol, C alc 51 TSH 1.63 PFSH Surgical History History of cholecystectomy Family History Mother No problems noted. Father Prostate cancer Maternal Uncle CAD (coronary artery disease) Other Mental health disorder Social History Housing: House Alcohol intake: never Patient Tobacco Use Status: Never used Tobacco e-Cigarette/Vaping Use: Never Used Second Hand Smoke Exposure: Yes service: No Current occupational status: employed Current occupation: [employer] Cognitive needs: No Hearing needs: No Vision needs: No Questionnaire Thrive Questionnaire Date Thrive assessed: 12/20/22 AUDIT C Alcohol Use Questionnaire (AUDIT-C) 1. How often do you have a drink containing alcohol?: Never 3. How often do you have six or more drinks on one occasion?: Never Total Score: 0 RICHARD-7 AMB Questionnaire RICHARD-7 Date RICHARD - 7 assessed: 12/20/22 Source: Developed by Drs. Freedom Trammell, Iwona Curtis, Ken Joy and colleagues, with an educational deisi from [employer]. Review of Systems Const Denies headache(s) Eyes Denies loss of vision ENT Denies vertigo, Denies dizziness, Denies headache(s) and Denies sore throat Card Denies chest pain, Denies leg edema and Denies lightheadedness Resp Denies cough, Denies hemoptysis and Denies wheezing GI Reports abdominal pain, Reports belching, Reports bloating and Reports GI cramping Denies dysuria, Denies urinary frequency and Denies urinary urgency Musc Denies arthralgias, Denies joint swelling, Denies numbness and Denies tingling Neuro Denies Abnormal speech present, Denies behavioral changes, Denies vertigo, Denies dizziness, Denies headache(s), Denies loss of vision, Denies memory loss, Denies numbness and Denies tingling Psych Denies anxiety, Denies behavioral changes, Denies depression, Denies memory loss and Denies panic attacks Luis F/Lymph Denies easy bleeding and Denies easy bruising Aller/Immun Denies wheezing Physical exam (Primary Care) Vital Signs: Last Vital Signs Pulse 85 01/25/24 08:34 BP 126/78 01/25/24 08:34 Pulse Ox 98 01/25/24 08:34 Oxygen Delivery Method Room Air 01/25/24 08:34 BMI result Body Mass Index 31.0 Tobacco/Smoking Status: Tobacco use Status Tobacco use date assessed 01/25/24 01/25/24 08:34 Patient Tobacco Use Status Never used Tobacco 01/25/24 08:34 e-Cigarette/Vaping Use Never Used 01/25/24 08:34 Thrive Assessment: Date of Thrive Assessment Date Thrive assessed 12/20/22 01/25/24 08:34 Const General: healthy appearing, no acute distress, alert and awake Nutritional Appearance: well nourished Orientation/consciousness: oriented to person, oriented to place and oriented to time HENMT Ears: TM's normal bilaterally General nose exam: Normal nasal mucous membranes and turbinates present Eyes Conjunctivae: conjunctivae normal Sclerae: sclerae normal Pupils: Equal, round and reactive pupils present Neck Neck: Yes no lymphadenopathy and Yes no JVD Thyroid: Thyroid normal Carotids: no bruits Resp Effort & Inspection: normal respiratory effort and not tachypneic Auscultation: no crackles, no rales, no rhonchi and no wheezes Cardio Rate: regular rate Rhythm: regular rhythm Heart sounds: no murmurs and normal S1 and S2 GI Palpation (GI): Soft to palpation, nontender, no hepatomegaly and no splenomegal y Auscultation: normal bowel sounds Skin General skin exam: no rashes or lesions noted and dry skin Neuro General: oriented to person, oriented to place and oriented to time Cranial nerves: Yes Equal, round and reactive pupils present Speech: No Abnormal speech present Gait exam (Neuro): Normal gait present Motor exam (neuro): no tremor noted Extrem Right upper extremity: full ROM Left upper extremity: full ROM Right lower extremity: full ROM; no edema Left lower extremity: full ROM; no edema Psych Mental Status: mental status grossly normal Speech and movement: Normal speech and movement present Affect: normal affect Attitude: cooperative Thought process: Normal thought process present Assessment and Plan Assessment & Plan (1) DMII (diabetes mellitus, type 2): Code(s): E11.9 - Type 2 diabetes mellitus without complications Qualifiers: Diabetes mellitus buttermaker continuous churn insulin use: without buttermaker continuous churn use Diabetes mellitus complication status: without complication Qualified Code(s): E11.9 - Type 2 diabetes mellitus without complications Plan: Patient's type 2 diabetes controlled with current dose of Tradjenta 5 mg. Goal A1c to be below 7.0 (2) Epilepsy: Comment: last seizure > 6 yrs ago. h/o VPN. Code(s): G40.909 - Epilepsy, unspecified, not intractable, without status epilepticus Qualifiers: Epilepsy type: unspecified Intractability: not intractable Status epilepticus: without status epilepticus Qualified Code(s): G40.909 - Epilepsy, unspecified, not intractable, without status epilepticus Plan: Patient followed by Neurology. Continues on Depakote and Lamictal and has not had any seizure activity for over 7 years. (3) HLD (hyperlipidemia): Code(s): E78.5 - Hyperlipidemia, unspecified Qualifiers: Hyperlipidemia type: pure hypercholesterolemia Qualified Code(s): E78.00 - Pure hypercholesterolemia, unspecified Plan: Most recent lipid panel showing excellent control his total cholesterol and LDL. Continues on high-dose statin therapy. Goal LDL to be below 100 (4) Obese: Code(s): E66.9 - Obesity, unspecified Qualifiers: Obesity type: due to excess calories Obesity classification: adult class 1 (BMI 30 - 34.9) Serious obesity comorbidity presence: with serious comorbidity Body mass index: BMI 31.0-31.9 Qualified Code(s): E66.09 - Other obesity due to excess calories; Z68.31 - Body mass index [BMI] 31.0-31.9, adult Plan: Patient does understand his BMI is over 30 will continue working on lifestyle modifications to reduce his weight. (5) Abdominal discomfort: Code(s): R10.9 - Unspecified abdominal pain (6) Colitis: Code(s): K52.9 - Noninfective gastroenteritis and colitis, unspecified Plan: As per HPI, patient experiencing abdominal pain and distention around his mid abdomen. He did present to the ER in the fall of [address] of abdomen did show fecalization of the small bowel and evidence of colitis. Will try to set him up with Gastroenterology for possible colonoscopy due to the continue GI discomfort and CT evidence of colitis. Orders: Orders Comprehensive [place]. Panel Fast Today E11.9 - Type 2 diabetes mellitus without complications Hemoglobin A1c Today E11.9 - Type 2 diabetes mellitus without complications Microalbumin, Random (w Creat) Today E11.9 - Type 2 diabetes mellitus without complications Erythrocyte Sedimentation Rate Today K52.9 - Noninfective gastroenteritis and colitis, unspecified Transglutaminase IgA Today K52.9 - Noninfective gastroenteritis and colitis, unspecified, R14.0 - Abdominal distension (gaseous) Endomysial IgA rflx Titer Today K52.9 - Noninfective gastroenteritis and colitis, unspecified, R14.0 - Abdominal distension (gaseous) Lipid Panel Today E78.00 - Pure hypercholesterolemia, unspecified Transglutaminase Ab IgG Today K52.9 - Noninfective gastroenteritis and colitis, unspecified, R14.0 - Abdominal distension (gaseous) Referrals Ophthalmology Referral E11.9 - Type 2 diabetes mellitus without complications Gastroenterology Referral K52.9 - Noninfective gastroenteritis and colitis, unspecified Medications: Refilled linagliptin (Tradjenta) 5 mg PO DAILY 90 days 90 tabs 2RF E11.9 - Type 2 diabetes mellitus without complications Patient Instructions: Goal: A1c to be below 7.0 Barriers: Adherence to physical activity and healthy eating habits. Coding Level of Care Code Est Pt Level 4 (14261) Diagnoses Type 2 diabetes mellitus without complication, without long-term current use of insulin E11.9 Diabetes mellitus skilled nursing insulin use: without buttermaker continuous churn use Diabetes mellitus complication status: without complication Nonintractable epilepsy without status epilepticus, unspecified epilepsy type G40.909 Epilepsy type: unspecified Intractability: not intractable Status epilepticus: without status epilepticus Pure hypercholesterolemia E78.00 Hyperlipidemia type: pure hypercholesterolemia Class 1 obesity due to excess calories with serious comorbidity and body mass index (BMI) of 31.0 to 31.9 in adult E66.09; Z68.31 Obesity type: due to excess calories Obesity classification: adult class 1 (BMI 30 - 34.9) Serious obesity comorbidity presence: with serious comorbidity Body mass index: BMI 31.0-31.9 Abdominal discomfort R10.9 Colitis K52.9
== END 2024-01-25 09:08 | disposition home or self-care (01) ==
PROVIDERS: PCP Physician Assistant; Visit Provider Physician Assistant
DX: E11.9 Type 2 diabetes mellitus without complications (principal); G40.909 Epilepsy, unspecified, not intractable, without status epilepticus; E66.09 Other obesity due to excess calories; Z68.31 Body mass index [BMI] 31.0-31.9, adult; R10.9 Unspecified abdominal pain; K52.9 Noninfective gastroenteritis and colitis, unspecified
CPT/HCPCS: 99214

== ENCOUNTER 2024-03-26 10:29 | Outpatient (AMB) | payer OTHER, SELFPAY ==
--- NOTE | 2024-03-26 10:35 | MHC.OFFVIS ---
Vital Signs 03/26/24 10:40 Height 5 ft 9 in Weight 207 lb 3.752 oz BMI 30.6 BP 130/74 Blood Pressure Location Lt brachial Position Sitting Pulse 63 Intake Visit Reasons: Noninfective gastroenteritis and colitis, Intake Note: New patient in office today for gastroenteritis and colitis. CC: Patient states that he was seen at the ED last year in June and was told that he had colitis and gastroenteritis. Patient reports that he went to the ED d/t a very strong epigastric pain, vomiting, and diarrhea. He also reports diarrhea alternating with constipation, gas, abdominal bloating, acid reflux, and heartburn. 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 He is referred by Daron Pardo. PMX Obesity Diabetes Thrombocytopenia (? from seizure drugs) HIgh cholesterol Epilepsy * SURGICAL HISTORY Cholecystectomy Vagus nerve stim for epilepsy * ALLERGIES Trulicity Metformin - vdiarrhea * [employer] LABS: Laboratory Tests 11/25/23 09:36 WBC 7.3 Hgb 15.2 Hct 43.2 Plt Count 127 L Estimated GFR > 60 Total Bilirubin 0.8 AST 18 ALT 21 Alkaline Phosphatase [address] ABD AND PELVIS 06/28/23 FINDINGS: LUNG BASES: Dependent bibasilar atelectasis. LIVER, GALLBLADDER, AND BILIARY TREE: The liver is normal in size, shape, and attenuation. No focal hepatic lesion or biliary ductal dilatation is present. Small calcified granulomas in the right lobe. Patient is status post cholecystectomy. PANCREAS: Unremarkable. SPLEEN: Unremarkable. ADRENAL GLANDS: Unremarkable. KIDNEYS AND URETERS: Bilateral nephrograms are symmetric. No hydronephrosis or obstructing calculus identified. BLADDER: Unremarkable. GASTROINTESTINAL TRACT: There is some fecalization of bowel loops in the central to right abdomen, though without significant dilation. Distalmost small bowel is collapsed, with transition in the lateral right lower quadrant on image 64/107. This could represent a developing small bowel obstruction. There is a thick-walled appearance of the collapsed ascending, descending, and sigmoid colon raising concern for colitis. Appendix is collapsed. Trace free fluid in the lower abdomen. No free air is seen. ABDOMINAL WALL: No significant hernia is appreciated. LYMPH NODES: Normal. VASCULAR: Unremarkable. PELVIC VISCERA: Unremarkable. OSSEOUS STRUCTURES: Unremarkable. CT/CT abdomen pelvis w IV con IMPRESSION: 1. Fecalization of small bowel loops in the central to right abdomen. Though bowel is not significantly dilated, there is transition to collapsed distal small bowel in the lateral right lower quadrant, therefore raising concern for a developing small bowel obstruction. 2. Thick-walled appearance of the collapsed ascending, descending, and sigmoid colon, suggesting colitis. 3. Trace free fluid in the lower abdomen. TODAY'S VISIT He has had years of gas and diarrhea since he had his GB out in 2004. Ever since then his stomach has never been the same. Recently he has started vomiting more, sheila since starting Trulicity; but this stopped with the stopping the Trulicity. When he had pain, it was in the upper abd and was colicky and intense. He has had other attacks but the ER visit was the worse but he has not had an attack for a time. He gets a lot of bloating, but milk makes it worse. He has lost weight, partly r/t changing his diet for diabetes, and he was on Trulicity for almost a year. He also has a physical job. He does not know much about his mother's medical history but there is no history of colitis or colon cancer on his father's side. Constipation really happens much more often than diarrhea; he frequently will not move his bowels more than once a week sometimes twice a week. When he initially moves his bowels the stool is quite hard and the diarrhea seems to follow this. So it sounds like constipation is the dominant process. He has tried [id number] laxative such as fiber, senna, bisacodyl, MiraLax, and Colace without good effect. Will get a colonoscopy since he has of age to prevent colon cancer I am not terribly convinced that he has a true colitis that is chronic given his symptom presentation however the colonoscopy will be diagnostic for this. There are no prior problems with anesthesia or sedation. He denies any cardiac or respiratory problems. No ID problems. ROV 2-3 weeks to evaluate Epifanio [facility] Medical History (Updated 04/18/24 @ 10:20 by CRYSTAL Escobedo) Seizures Colitis Diabetes Elevated cholesterol Infection of nose Cellulitis Left wrist tendinitis Family history of coronary arteriosclerosis Surgical History H/O colonoscopy History of cholecystectomy Family History Mother No problems noted. Father Prostate cancer Maternal Uncle CAD (coronary artery disease) Paternal Uncle Bone cancer Paternal Aunt Ovarian cancer Paternal Aunt Thyroid cancer Paternal Aunt Breast cancer Other Mental health disorder Social History Housing: House Alcohol intake: current Alcohol intake frequency: holidays/special occasions only Patient Tobacco Use Status: Never used Tobacco e-Cigarette/Vaping Use: Never Used Second Hand Smoke Exposure: Yes service: No Current occupational status: employed Current occupation: [employer] Cognitive needs: No Hearing needs: No Vision needs: No Review of Systems Const Denies fatigue, Denies fever(s), Denies night sweats, Denies poor appetite and Denies weight loss ENT Reports Normal hearing present, Denies dental pain, Denies dysphagia, Denies hearing loss, Denies mouth pain, Denies odynophagia, Denies throat swelling, Denies tongue swelling and Reports other (Dentition adequate) Card Reports no additional complaints Resp Reports no additional complaints GI Details: Denies abdominal pain, Denies melena, Reports bloating, Denies hematochezia, Reports constipation, Reports GI cramping, Denies dysphagia, Denies excessive flatus, Denies early satiety, Reports heartburn, Denies diarrhea, Denies nausea, Denies odynophagia, Denies vomiting and Denies hematemesis Skin/Breast Denies pruritus, Denies lesions, Denies rash and Denies jaundice Neuro Reports Normal hearing present and Denies Abnormal speech present Endo Denies fatigue Aller/Immun Denies throat swelling and Denies tongue swelling Physical Exam Vital Signs: Last Vital Signs Pulse 63 03/26/24 10:40 BP 130/74 03/26/24 10:40 BMI result Body Mass Index 30.6 Const General: cooperative, no acute distress, well developed and well groomed Nutritional Appearance: well nourished and obese Orientation/consciousness: oriented to person, oriented to place and oriented to time Limitations: No language barrier HEENT Head: Yes normocephalic and Yes atraumatic Eyes General: appearance normal, both eyes and all related structures Pupils: Equal, round and reactive pupils present Neck Neck: Yes normal visual inspection and Yes no lymphadenopathy Thyroid: Thyroid normal Resp Effort & Inspection: normal respiratory effort and able to speak in complete sentences Auscultation: clear to auscultation bilaterally Cardio Rate: regular rate Rhythm: regular rhythm Heart sounds: Normal, physiologic split S2 sound present Peripheral pulses: radial pulses present and posterior tibial pulses present GI Inspection: No distended and No Abdominal panniculus present Palpation (GI): Soft to palpation, nontender, no guarding, not rigid and No hepatosplenomegaly present Percussion: Yes normal to percussion Auscultation: normal bowel sounds Rectal Exam - Male: Yes deferred Skin General skin exam: no rashes or lesions noted, turgor normal, skin not dry, no jaundice, No spider nevi and no striae Rashes: no rashes Nails: normal Neuro General: oriented to person, oriented to place and oriented to time Cranial nerves: Yes Equal, round and reactive pupils present and Yes Normal hearing present Speech: No Abnormal speech present Extrem General: Yes normal to inspection, No clubbing, No cyanosis and No edema Psych Appearance: grossly normal and well kempt Mental Status: mental status grossly normal Speech and movement: Normal speech and movement present Affect: normal affect Attitude: cooperative Thought process: Normal thought process present and not confabulating Thought content: Normal thought content present Insight: Fair insight present (Psych) and Limited insight present (Psych) Judgement: Fair judgement present (Psych) and Limited judgement present (Psych) Assessment & Plan Assessment & Plan (1) Epilepsy: Comment: last seizure > 6 yrs ago. h/o VPN. Code(s): G40.909 - Epilepsy, unspecified, not intractable, without status epilepticus Category: Medical Qualifiers: Epilepsy type: unspecified Intractability: not intractable Status epilepticus: without status epilepticus Qualified Code(s): G40.909 - Epilepsy, unspecified, not intractable, without status epilepticus (2) Epilepsy: Comment: last seizure > 6 yrs ago. h/o VPN. Code(s): G40.909 - Epilepsy, unspecified, not intractable, without status epilepticus Category: Medical Qualifiers: Epilepsy type: unspecified Intractability: not intractable Status epilepticus: without status epilepticus Qualified Code(s): G40.909 - Epilepsy, unspecified, not intractable, without status epilepticus (3) Colitis: Code(s): K52.9 - Noninfective gastroenteritis and colitis, unspecified Category: Medical (4) Thrombocytopenia: Comment: ? r/t seizure meds Code(s): D69.6 - Thrombocytopenia, unspecified Category: Medical Plan He has had years of gas and diarrhea since he had his GB out in 2004. Ever since then his stomach has never been the same. Recently he has started vomiting more, sheila since starting Trulicity; but this stopped with the stopping the Trulicity. When he had pain, it was in the upper abd and was colicky and intense. He has had other attacks but the ER visit was the worse but he has not had an attack for a time. He gets a lot of bloating, but milk makes it worse. He has lost weight, partly r/t changing his diet for diabetes, and he was on Trulicity for almost a year. He also has a physical job. He does not know much about his mother's medical history but there is no history of colitis or colon cancer on his father's side. Constipation really happens much more often than diarrhea; he frequently will not move his bowels more than once a week sometimes twice a week. When he initially moves his bowels the stool is quite hard and the diarrhea seems to follow this. So it sounds like constipation is the dominant process. He has tried [id number]-[id number]-qjhjrmm laxative such as fiber, senna, bisacodyl, MiraLax, and Colace without good effect. Will get a colonoscopy since he has of age to prevent colon cancer I am not terribly convinced that he has a true colitis that is chronic given his symptom presentation however the colonoscopy will be diagnostic for this. There are no prior problems with anesthesia or sedation. He denies any cardiac or respiratory problems. No ID problems. ROV 2-3 weeks to evaluate Linzess Orders: Orders EGD/[place] [facility] - GI Use Only 03/26/24 K52.9 - Noninfective gastroenteritis and colitis, unspecified, D69.6 - Thrombocytopenia, unspecified, G40.909 - Epilepsy, unspecified, not intractable, without status epilepticus Complete Blood Count Auto Diff 03/27/24 D69.6 - Thrombocytopenia, unspecified Referrals Hematology & Oncology Referral D69.6 - Thrombocytopenia, unspecified Medications: New sodium,potassium,mag sulfates 17.5-3.13-1.6 gram (Suprep Bowel Prep Kit) 480 mL orally; FOR COLONOSCOPY PREP 354 mL 0RF linaclotide (Linzess) Take first thing in the morning with a full glass of water. 145 mcg PO QAM 30 caps 3RF K58.1 - Irritable bowel syndrome with constipation Coding Level of Care Code New Pt Level 3 (66490) Diagnoses Nonintractable epilepsy without status epilepticus, unspecified epilepsy type G40.909 Epilepsy type: unspecified Intractability: not intractable Status epilepticus: without status epilepticus Colitis K52.9 Thrombocytopenia D69.6
[2024-03-26 10:40] VITALS: BP 130/74; PULSE 63; BMI 30.6
== END 2024-03-26 11:28 | disposition home or self-care (01) ==
PROVIDERS: PCP Physician Assistant; Visit Provider Nurse Practitioner
DX: G40.909 Epilepsy, unspecified, not intractable, without status epilepticus (principal); K52.9 Noninfective gastroenteritis and colitis, unspecified; D69.6 Thrombocytopenia, unspecified
CPT/HCPCS: 99203

== ENCOUNTER → 2024-03-26 10:29 | Outpatient (BNVA) | payer OTHER, SELFPAY | PROVIDERS: PCP Physician Assistant; Visit Provider Nurse Practitioner | DX: K52.9 Noninfective gastroenteritis and colitis, unspecified (principal); R63.4 Abnormal weight loss; K59.00 Constipation, unspecified | CPT/HCPCS: 99202 ==

== ENCOUNTER 2024-04-11 07:36 | Day surgery (SDC) | payer OTHER, SELFPAY ==
[2024-04-09 13:43] VITALS: BMI 30.6
[2024-04-11 08:33] VITALS: BP 123/76; PULSE 64; RESP 18; TEMP 36.6; O2SAT 97
[2024-04-11] MEDS: Lactated Ringers 1,000 ML 50 ML IVCONT (08:33)
[2024-04-11 08:35] LABS: Glucose, Whole Blood 169 mg/dL (60-115)
--- NOTE | 2024-04-11 08:36 | PC.NURSE ---
Iv inserted by rocky mcnally rn
--- NOTE | 2024-04-11 08:40 | MHC.SHP ---
Pre-Procedural Eval Section A - 24 Hr Update-Section A only Date of Service: 04/11/24 The patient is an INPATIENT: No The patient has been examined within 24 hours of the surgical procedure. The History & Physical has been completed within 30 days and I have reviewed it.: Yes Section B - Complete if H&P > 30 days Chief Complaint: Noninfective gastroenteritis and colitis, Allergies: Allergies Allergy/AdvReac Type Severity Reaction Status Date / Time dulaglutide [From Trulicity] AdvReac Intermediate GI upset Verified 04/11/24 08:27 metformin AdvReac Intermediate Diarrhea Verified 04/11/24 08:27 Plan Diagnosis/Plan: Unchanged I have reviewed the history and physical and performed a pertinent physical examination on my patient. No changes have occurred unless specified. Time Spent With Patient Time: Total time managing care of this patient today ____ minutes.
--- NOTE | 2024-04-11 10:11 | P.CONAN_ITS ---
HPI - Anesthesia Eval Consult details Narrative: for colonoscopy PMFSH Active Problems Active Problems: All Active Problems Thrombocytopenia (Acute) Abdominal discomfort (Acute) Colitis (Acute) Bilateral knee pain (Acute) Shift work sleep disorder (Acute) Obese (Acute) DMII (diabetes mellitus, type 2) (Acute) HLD (hyperlipidemia) (Acute) Epilepsy (Acute) Past Medical History Medical History Seizures Colitis Diabetes Elevated cholesterol Infection of nose Cellulitis Left wrist tendinitis Family history of coronary arteriosclerosis Family History Family History (Updated 03/26/24 @ 10:50 by BULMARO Luna) Mother No problems noted. Father Prostate cancer Maternal Uncle CAD (coronary artery disease) Paternal Uncle Bone cancer Paternal Aunt Ovarian cancer Paternal Aunt Thyroid cancer Paternal Aunt Breast cancer Other Mental health disorder Family history of problems with anesthesia: No Surgical History Surgical History History of cholecystectomy History of Problems with Anesthesia: No Social History Social History (Updated 03/26/24 @ 10:51 by BULMARO Luna) Housing: House Alcohol intake: current Alcohol intake frequency: holidays/special occasions only Patient Tobacco Use Status: Never used Tobacco e-Cigarette/Vaping Use: Never Used Second Hand Smoke Exposure: Yes Substance Use Frequency: Daily Are you DNR?: No Advance Directives: No Nutrition Risks: No Nutritional Risk service: No Current occupational status: employed Current occupation: [email or web address] Cognitive needs: No Hearing needs: No Vision needs: No Meds Allergies Allergy/AdvReac Type Severity Reaction Status Date / Time [facility] AdvReac Intermediate GI upset Verified 04/11/24 08:27 metformin AdvReac Intermediate Diarrhea Verified 04/11/24 08:27 Active Medications: Current Medications Lactated Ringer's (Lr) 1,000 mls @ 50 mls/hr IVCONT .Q20H ANDREI Last Admin: 04/11/24 08:33 Dose: 50 mls/hr Home Medications ?Medication ?Instructions ?Recorded ?Confirmed ?Last Taken ?Type cholecalciferol (vitamin D3) 50 50 mcg PO DAILY 06/29/21 04/09/24 Unknown History mcg (2,000 unit) capsule Exam Height,Weight and Vital Signs: Height 5 ft 9 in Weight 92.079 kg Last Vital Signs Temp 97.9 F 04/11/24 08:33 Pulse 64 04/11/24 08:33 Resp 18 04/11/24 08:33 BP 123/76 04/11/24 08:33 Pulse Ox 97 04/11/24 08:33 O2 Del Method Room Air 04/11/24 08:33 Pertinent Lab Results Pertinent Lab Results: Laboratory Tests 04/11/24 08:32 POC Glucose 169 H Airway Mallampati Class: II TM Dist: >3cm Neck ROM: Full Loose/Missing/Broken Teeth: No Heart: ok Lungs: ok Assessment and Plan Assessment Anesthesia Assessment: Anesthesia Plan Discussed and Chart Reviewed Final Anesthetic Review Family History of Problems with Anesthesia: No History of Problems with Anesthesia: No NPO: Yes ASA Class: II Final Preanesthetic Review: No Changes in Pt Med Stat, Meds/Allgs Chart Reviewed, Consent Obtained/Reviewed and Anes Risks/Benef Reviewed Patient Risk: Low Procedure Risk: Low Anesthetic Plan Anesthetic Plan: MAC: and Agree w/ Assess. and Plan Disposition: Standard PACU
--- NOTE | 2024-04-11 10:19 | P.OPN-COLO_ITS ---
Colonoscopy Operative Note Operative Note Date of Service: 04/11/24 Narrative: Procedure: Colonoscopy Indication: Chronic Diarrhea, abnormal CT scan Endoscopist: Charley Miguel MD Anesthesia Provider: Dr Nickolas Saunders Anesthesia type: MAC Instrument: Olympus [id number]-H190L Consent: Indication, risks vs benefits, and alternatives were discussed with the patient who gave written informed consent to proceed. EKG, pulse, pulse oximetry and blood pressure were monitored throughout the procedure. Please see anesthesia flowsheet. Procedure: The patient was brought to the procedure room and placed in the left lateral decubitus position. IV medications were administered by the anesthesia provider in attendance. A digital rectal exam was performed which was abnormal due to finding of ext hemorrhoids. A distal attachment cap was affixed to the tip of the colonoscope which was then inserted through the anus and advanced through the colon to the cecum at 80 cm,and terminal ileum. Appendiceal orifice and ileocecal valve were identified. Mucosa was carefully examined under high definition white light as the instrument was slowly withdrawn in a retrograde panoramic fashion. Retroflexion was performed in ascending colon and rectum. The procedure was not difficult. There were no immediate obvious complications. The quality of the prep was BBPS: 2+3+2 = adequate Withdrawal time 7 minutes. Limitations: No limitations. Findings: Mucosa: Normal to cecum and terminal ileum. [Cold forceps biopsies were taken from right and left side of the colon to r/o microscopic colitis. Protruding lesions: * Large internal hemorrhoids without stigmata of recent bleeding. Impression: 1. Normal colon and terminal ileum mucosa (biopsy) 2. External and internal hemorrhoids Recommendations: - Follow path results. - Repeat colonoscopy in 10 years for asymptomatic colorectal cancer screening.
[2024-04-11 10:43] VITALS: BP 92/58; PULSE 60; RESP 18; TEMP 36.2; O2SAT 97
[2024-04-11 10:58] VITALS: BP 123/85; PULSE 59; RESP 18; TEMP 36.2; O2SAT 99
== END 2024-04-11 11:18 | disposition home or self-care (01) ==
PROVIDERS: PCP Physician Assistant; Visit Provider Internal Medicine
PROC: 0DJD8ZZ Inspection of Lower Intestinal Tract, Via Natural or Artificial Opening Endoscopic (ICD-10-PCS; CPT 45378; principal; 2024-04-11 09:40)
DX: K52.9 Noninfective gastroenteritis and colitis, unspecified (principal); K64.8 Other hemorrhoids; K64.4 Residual hemorrhoidal skin tags; G40.909 Epilepsy, unspecified, not intractable, without status epilepticus; D69.6 Thrombocytopenia, unspecified; E11.9 Type 2 diabetes mellitus without complications; E78.00 Pure hypercholesterolemia, unspecified; E66.9 Obesity, unspecified; Z68.30 Body mass index [BMI] 30.0-30.9, adult; Z79.899 Other long term (current) drug therapy; Z88.8 Allergy status to other drugs, medicaments and biological substances; Z90.49 Acquired absence of other specified parts of digestive tract
CPT/HCPCS: 45380; 82947; 88305; J2704

== ENCOUNTER → 2024-04-11 07:36 | Outpatient (BNV) | payer OTHER, SELFPAY | PROVIDERS: PCP Physician Assistant; Visit Provider Internal Medicine | DX: K52.9 Noninfective gastroenteritis and colitis, unspecified (principal); R93.3 Abnormal findings on diagnostic imaging of other parts of digestive tract; K64.8 Other hemorrhoids | CPT/HCPCS: 45380 ==

== ENCOUNTER 2024-04-18 09:59 | Outpatient (REF) | payer OTHER, SELFPAY ==
[2024-04-20 13:43] LABS: H Pylori Breath Test Negative (Negative)
== END 2024-04-18 10:00 | disposition home or self-care (01) ==
LOC: HO.LNP 09:59
PROVIDERS: PCP Physician Assistant; Visit Provider Nurse Practitioner
DX: R10.13 Epigastric pain (principal); R68.81 Early satiety
CPT/HCPCS: 83013; 99212

== ENCOUNTER 2024-04-18 09:59 | Outpatient (AMB) | payer OTHER, SELFPAY ==
--- NOTE | 2024-04-18 10:01 | A.OFFVIS_ITS ---
Vital Signs 04/18/24 10:02 Height 5 ft 9 in Weight 206 lb 5.643 oz BMI 30.5 BP 115/67 Blood Pressure Location Lt brachial Position Sitting Pulse 69 Intake Visit Reasons: s/p colonoscopy Intake Note: Kristian returns to in office follow up s/p colonoscopy. CC: Patient reports having nausea and vomiting sometimes, he also continues having abdominal burning, and bloating. Content Administrator Required: No Accompanied by: Self / Same As Patient Allergies dulaglutide [From [facility]] Adverse Reaction (Intermediate, Verified 04/18/24 10:06) GI upset metformin Adverse Reaction (Intermediate, Verified 04/18/24 10:06) Diarrhea HPI HPI s/p colonoscopy: Details: Assessment & Plan (1) Epilepsy: Comment: last seizure > 6 yrs ago. h/o VPN. Code(s): G40.909 - Epilepsy, unspecified, not intractable, without status epilepticus Category: Medical Qualifiers: Epilepsy type: unspecified Intractability: not intractable Status epilepticus: without status epilepticus Qualified Code(s): G40.909 - Epilepsy, unspecified, not intractable, without status epilepticus (2) Epilepsy: Comment: last seizure > 6 yrs ago. h/o VPN. Code(s): G40.909 - Epilepsy, unspecified, not intractable, without status epilepticus Category: Medical Qualifiers: Epilepsy type: unspecified Intractability: not intractable Status epilepticus: without status epilepticus Qualified Code(s): G40.909 - Epilepsy, unspecified, not intractable, without status epilepticus (3) Colitis: Code(s): K52.9 - Noninfective gastroenteritis and colitis, unspecified Category: Medical (4) Thrombocytopenia: Comment: ? r/t seizure meds Code(s): D69.6 - Thrombocytopenia, unspecified Category: Medical Orders: Orders EGD/Warren Combo - GI Use Only Today D69.6 - Thrombocytopenia, unspecified, G40.909 - Epilepsy, unspecified, not intractable, without status epilepticus, K52.9 - Noninfective gastroenteritis and colitis, unspecified Referrals Hematology & Oncology Referral D69.6 - Thrombocytopenia, unspecified Medications: New sodium,potassium,mag sulfates 17.5-3.13-1.6 gram (Suprep Bowel Prep Kit) 480 mL orally; FOR COLONOSCOPY PREP 354 mL 0RF linaclotide (Linzess) Take first thing in the morning with a full glass of water. 145 mcg PO QAM 30 caps 3RF K58.1 - Irritable bowel syndrome with constipation COLONOSCOPY 04/11/24 Findings: Mucosa: Normal to cecum and terminal ileum. [Cold forceps biopsies were taken from right and left side of the colon to r/o microscopic colitis. Protruding lesions: * Large internal hemorrhoids without stigmata of recent bleeding. Impression: 1. Normal colon and terminal ileum mucosa (biopsy) 2. External and internal hemorrhoids Recommendations: - Follow path results. - Repeat colonoscopy in 10 years for asymptomatic colorectal cancer screening. BIOPSY Received: 04/11/24 Diagnosis A. Colon, right, biopsy: Colonic mucosa within normal limits. B. Colon, left, biopsy: Colonic mucosa within normal limits CORRESPONDENCE On 04/10/24 @ 11:28 Krystle Amos Wrote To Susan Lagunas Yup, just a colonoscopy, I think this is another December clicky error. On 04/10/24 @ 10:25 Susan Lagunas Wrote To Krystle Amos patient is scheduled tomorrow for colo, ? if he needs EGD. I thinks its just colo- nothing your note states egd, but just want to make sure EGD/Warren Combo - GI Use Only Today D69.6 - Thrombocytopenia, unspecified, G40.909 - Epilepsy, unspecified, not intractable, without status epilepticus, K52.9 - Noninfective gastroenteritis and colitis, unspecified TODAY'S VISIT He is agreeable to a 10 year recall. He continues to have burning in the upper abdomen with bloating that is intermittent and frequent dyspepsia. He will frequently have to jump up after he goes to bed and vomit and he will have the feeling of regurg coming up to his chest. This despite the fact that there has been for 5 hours between the last meal and when he lays down to bed. The patient is diabetic, so possible diagnoses would include diabetic gastroparesis or an H pylori infection. We will get AH pylori breath test today and I will order a gastric emptying study. I also going to start him on omeprazole 40 mg once a day to see if this gives him some symptom relief in the interim. He does sometimes experience early satiety but in general his appetite is good. He is utilizing the Linzess every day and he finds that he is moving his bowels well. This has not made any difference in his initial symptom presentation. Return office visit in 6 weeks to evaluate the omeprazole and go over the H pylori testing [facility] Medical History (Updated 04/18/24 @ 10:20 by CRYSTAL Escobedo) Seizures Colitis Diabetes Elevated cholesterol Infection of nose Cellulitis Left wrist tendinitis Family history of coronary arteriosclerosis Surgical History (Updated 04/18/24 @ 10:12 by CRYSTAL Escobedo) H/O colonoscopy History of cholecystectomy Family History Mother No problems noted. Father Prostate cancer Maternal Uncle CAD (coronary artery disease) Paternal Uncle Bone cancer Paternal Aunt Ovarian cancer Paternal Aunt Thyroid cancer Paternal Aunt Breast cancer Other Mental health disorder Social History Housing: House Alcohol intake: current Alcohol intake frequency: holidays/special occasions only Patient Tobacco Use Status: Never used Tobacco e-Cigarette/Vaping Use: Never Used Second Hand Smoke Exposure: Yes service: No Current occupational status: employed Current occupation: [employer] Cognitive needs: No Hearing needs: No Vision needs: No Review of Systems Const Denies fatigue, Denies fever(s), Denies night sweats, Denies poor appetite and Denies weight loss ENT Reports Normal hearing present, Denies dental pain, Denies dysphagia, Denies hearing loss, Denies mouth pain, Denies odynophagia, Denies throat swelling, Denies tongue swelling and Reports other (Dentition adequate) Card Reports no additional complaints Resp Reports no additional complaints GI Details: Reports abdominal pain, Denies melena, Reports bloating, Denies hematochezia, Denies constipation, Denies GI cramping, Denies dysphagia, Denies excessive flatus, Denies early satiety, Reports heartburn, Denies diarrhea, Reports nausea, Denies odynophagia, Reports vomiting and Denies hematemesis Skin/Breast Denies pruritus, Denies lesions, Denies rash and Denies jaundice Neuro Reports Normal hearing present and Denies Abnormal speech present Endo Denies fatigue Aller/Immun Denies throat swelling and Denies tongue swelling Physical Exam Vital Signs: Last Vital Signs Pulse 69 04/18/24 10:02 BP 115/67 04/18/24 10:02 BMI result Body Mass Index 30.5 Const General: cooperative, no acute distress, well developed and well groomed Nutritional Appearance: well nourished and obese Orientation/consciousness: oriented to person, oriented to place and oriented to time Limitations: No language barrier HEENT Head: Yes normocephalic and Yes atraumatic Eyes General: appearance normal, both eyes and all related structures Pupils: Equal, round and reactive pupils present Neck Neck: Yes normal visual inspection and Yes no lymphadenopathy Thyroid: Thyroid normal Resp Effort & Inspection: normal respiratory effort and able to speak in complete sentences Auscultation: clear to auscultation bilaterally Cardio Rate: regular rate Rhythm: regular rhythm Heart sounds: Normal, physiologic split S2 sound present Peripheral pulses: radial pulses present and posterior tibial pulses present GI Inspection: No distended and No Abdominal panniculus present Palpation (GI): Soft to palpation, nontender, no guarding, not rigid and No hepatosplenomegaly present Percussion: Yes normal to percussion Auscultation: normal bowel sounds Rectal Exam - Male: Yes deferred Skin General skin exam: no rashes or lesions noted, turgor normal, skin not dry, no jaundice, No spider nevi and no striae Rashes: no rashes Nails: normal Neuro General: oriented to person, oriented to place and oriented to time Cranial nerves: Yes Equal, round and reactive pupils present and Yes Normal hearing present Speech: No Abnormal speech present Extrem General: Yes normal to inspection, No clubbing, No cyanosis and No edema Psych Appearance: grossly normal and well kempt Mental Status: mental status grossly normal Speech and movement: Normal speech and movement present Affect: normal affect Attitude: cooperative Thought process: Normal thought process present and not confabulating Thought content: Normal thought content present Insight: Limited insight present (Psych) Judgement: Limited judgement present (Psych) Results Reviewed Results Reviewed: COLONOSCOPY 04/11/24 Findings: Mucosa: Normal to cecum and terminal ileum. [Cold forceps biopsies were taken from right and left side of the colon to r/o microscopic colitis. Protruding lesions: * Large internal hemorrhoids without stigmata of recent bleeding. Impression: 1. Normal colon and terminal ileum mucosa (biopsy) 2. External and internal hemorrhoids Recommendations: - Follow path results. - Repeat colonoscopy in 10 years for asymptomatic colorectal cancer screening. BIOPSY Received: 04/11/24 Diagnosis A. Colon, right, biopsy: Colonic mucosa within normal limits. B. Colon, left, biopsy: Colonic mucosa within normal limits Assessment & Plan Assessment & Plan (1) Dyspepsia: Code(s): R10.13 - Epigastric pain Category: Medical (2) Early satiety: Code(s): R68.81 - Early satiety Category: Medical Plan He is agreeable to a 10 year recall. He continues to have burning in the upper abdomen with bloating that is intermittent and frequent dyspepsia. He will frequently have to jump up after he goes to bed and vomit and he will have the feeling of regurg coming up to his chest. This despite the fact that there has been for 5 hours between the last meal and when he lays down to bed. The patient is diabetic, so possible diagnoses would include diabetic gastroparesis or an H pylori infection. We will get AH pylori breath test today and I will order a gastric emptying study. I also going to start him on omeprazole 40 mg once a day to see if this gives him some symptom relief in the interim. He does sometimes experience early satiety but in general his appetite is good. He is utilizing the Linzess every day and he finds that he is moving his bowels well. This has not made any difference in his initial symptom presentation. Return office visit in 6 weeks to evaluate the omeprazole and go over the H pylori testing Orders: Orders NM gastric emptying study Today R10.13 - Epigastric pain, R68.81 - Early satiety H Pylori Breath Test Today R10.13 - Epigastric pain Medications: New omeprazole 40 mg PO DAILY 30 caps 3RF 30 days Coding Level of Care Code Est Pt Level 4 (25877) Diagnoses Dyspepsia R10.13 Early satiety R68.81 Time Spent (min) 31
[2024-04-18 10:02] VITALS: BP 115/67; PULSE 69; BMI 30.5
== END 2024-04-18 10:56 | disposition home or self-care (01) ==
PROVIDERS: PCP Physician Assistant; Visit Provider Nurse Practitioner
DX: R10.13 Epigastric pain (principal); R68.81 Early satiety
CPT/HCPCS: 99214

== ENCOUNTER → 2024-05-16 08:26 | Outpatient (REF) | payer OTHER, SELFPAY ==
--- NOTE | ~2024-05-16 | NM_ITS ---
EXAMINATION: RADIONUCLIDE SOLID FOOD GASTRIC EMPTYING 4-HOUR STUDY CLINICAL INFORMATION: Epigastric pain. COMPARISON: No previous gastric emptying study is available for comparison. TECHNIQUE: A standard meal consisting of 4 oz of Egg Beaters brand equivalent tagged with 1.0 mCi Tc-99m Sulfur Colloid, 8 oz water and 2 slices of toast with jelly was administered orally to the patient. Images were obtained using a dual head gamma camera in the anterior and posterior projections over of the stomach immediately post ingestion and at hourly intervals up to 4 hours post ingestion. The anterior and posterior counts at each time interval were averaged using the geometric mean and expressed as percentage of the immediate post ingestion counts. FINDINGS: There is good visualization of activity in the stomach immediately post ingestion. As the study progresses, there is good clearance of activity from the stomach and visualization of progressively increasing small bowel activity. By the end of the study, there is almost no retention noted in the stomach. Retention in the stomach at each time interval was: 1 hour and 95% (normal 37%-90%) 2 hours 52% (normal 30%-60%) 3 hours 24% 4 hours 10% (normal 0%-10%) NM/MT gastric emptying study IMPRESSION: Normal 4-hour solid food gastric emptying study. Gastric emptying study grading per JNMT Consensus Recommendations in 2008: https://tech.snmjournals.org/content/36/1/44 Grade 1 (mild retention): 11-20% at 4 hours Grade 2 (moderate retention): 21-35% at 4 hours Grade 3 (severe retention): 36-50% at 4 hours Grade 4 (very severe retention): >50% retention at 4 hours Electronically signed by: Drew Washington MD 05/21/2024 12:09 PM EDT
== END ==
LOC: HO.NUCMED 08:26
PROVIDERS: PCP Physician Assistant; Visit Provider Nurse Practitioner
DX: R10.13 Epigastric pain (principal); R68.81 Early satiety
CPT/HCPCS: 78264; A9541

== ENCOUNTER 2024-05-21 10:49 | Outpatient (AMB) | payer OTHER, SELFPAY ==
--- NOTE | 2024-05-21 11:15 | MHC.OFFVIS ---
Vital Signs 05/21/24 11:16 Height 5 ft 9 in Weight 205 lb BMI 30.3 BP 128/88 Blood Pressure Location Rt brachial Position Sitting Pulse 78 Pulse Source Pulse Oximeter Pulse Oximetry (%) 96 Oxygen Delivery Method Room Air Intake Visit Reasons: 6 Month F/U Intake Note: Patient presents for 6 month follow up. Allergies dulaglutide [From [facility]] Adverse Reaction (Intermediate, Verified 05/21/24 11:17) GI upset metformin Adverse Reaction (Intermediate, Verified 05/21/24 11:17) Diarrhea Medication List - Last Reconciled 05/21/24 by CALVIN Ledbetter atorvastatin 80 mg PO BEDTIME cholecalciferol (vitamin D3) 50 mcg PO DAILY divalproex (Depakote) 1,000 mg (2 x 500 mg) PO BID 90 days lamotrigine (Lamictal) 100 mg PO BID 90 days linaclotide (Linzess) 145 mcg PO QAM linagliptin (Tradjenta) 5 mg PO DAILY 90 days omeprazole 40 mg PO DAILY 30 days HPI Comments Details: 44-yr-old male presents for f/u visit, pt accompanied by his spouse. Pt denies any significant interval medical changes. Pt denies any interval sieuzre activity. Last seizure was 7 yrs ago. Complaint w/ Lamictal and Depakote now taking q 8am and 8pm. November 2023 Lamotrigine and Depakote level was WNL. Denies rashes, skin changes. 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 Sleeps well during the day. [facility] Medical History (Updated 04/18/24 @ 10:20 by CRYSTAL Escobedo) Seizures Colitis Diabetes Elevated cholesterol Infection of nose Cellulitis Left wrist tendinitis Family history of coronary arteriosclerosis Surgical History H/O colonoscopy History of cholecystectomy Family History Mother No problems noted. Father Prostate cancer Maternal Uncle CAD (coronary artery disease) Paternal Uncle Bone cancer Paternal Aunt Ovarian cancer Paternal Aunt Thyroid cancer Paternal Aunt Breast cancer Other Mental health disorder Social History Housing: House Alcohol intake: current Alcohol intake frequency: holidays/special occasions only Patient Tobacco Use Status: Never used Tobacco e-Cigarette/Vaping Use: Never Used Second Hand Smoke Exposure: Yes service: No Current occupational status: employed Current occupation: [employer] Cognitive needs: No Hearing needs: No Vision needs: No Physical Exam Vital Signs: Last Vital Signs Pulse 78 05/21/24 11:16 BP 128/88 05/21/24 11:16 Pulse Ox 96 05/21/24 11:16 Oxygen Delivery Method Room Air 05/21/24 11:16 BMI result Body Mass Index 30.3 Const General: cooperative and no acute distress Orientation/consciousness: patient oriented x3 Resp Effort & Inspection: normal respiratory effort and able to speak in complete sentences Neuro General: patient oriented x3 Cranial nerves: Yes CN's II-XII intact bilaterally Cognition (Neuro): normal cognition Psych Appearance: grossly normal Mental Status: mental status grossly normal Speech and movement: Normal speech and movement present Affect: normal affect Attitude: cooperative Assessment & Plan Assessment & Plan (1) Epilepsy: Comment: last seizure > 6 yrs ago. h/o VPN. 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 Continue Lamotrigine 10omg bid- however adjust to q 12 hrs Continue Valproate 1000 mg bid- however adjust to q 12 hrs Melatonin prn- for sleep. Pt advised to NOT drive within 6 months of any seizure activity w/ AMS. Pt to f/u in 6 months or sooner prn. Orders: Orders Comprehensive Met. 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
[2024-05-21 11:16] VITALS: BP 128/88; PULSE 78; O2SAT 96; BMI 30.3
== END 2024-05-21 11:45 | disposition home or self-care (01) ==
PROVIDERS: PCP Physician Assistant; Visit Provider Nurse Practitioner Family
DX: G40.909 Epilepsy, unspecified, not intractable, without status epilepticus (principal); G47.26 Circadian rhythm sleep disorder, shift work type
CPT/HCPCS: 99214

== ENCOUNTER → 2024-05-21 10:49 | Outpatient (BNVA) | payer OTHER, SELFPAY | PROVIDERS: PCP Physician Assistant; Visit Provider Nurse Practitioner Family | DX: G40.909 Epilepsy, unspecified, not intractable, without status epilepticus (principal); G47.26 Circadian rhythm sleep disorder, shift work type | CPT/HCPCS: 99212 ==

== ENCOUNTER 2024-05-27 07:23 | Outpatient (REF) | payer OTHER, SELFPAY ==
[2024-05-27 07:35] LABS: MANUAL DIFF FLAG NO
[2024-05-27 08:26] LABS: Basophils Percent Auto 0.4 % (0-2); Eosinophils Absolute Auto 0.1 X10*3/uL (0.0-0.4); Eosinophils Percent Auto 1.3 % (0-4); Hematocrit 40.1 % (42.0-52.0); Hemoglobin 14.1 g/dl (14.0-18.0); Imm Gran Abs Auto 0.01 X10*3/uL (0.00-0.03); Imm Gran Pct Auto 0.1 % (0.0-0.4); Lymphocytes Absolute Auto 3.2 X10*3/uL (1.2-4.9); Lymphocytes Percent Auto 47.4 % (20-40); Mean Corpuscular HGB Conc 35.2 g/dl (31.0-36.0); Mean Corpuscular Hemoglobin 30.5 pg (27.0-33.0); Mean Corpuscular Volume 86.6 fL (80.0-98.0); Mean Platelet Volume 11.6 fL (9.4-12.4); Monocytes Absolute Auto 0.6 X10*3/uL (0.1-1.2); Monocytes Percent Auto 8.3 % (2-11); Neutrophils Absolute Auto 2.8 x10*3/uL (2.0-8.3); Neutrophils Percent Auto 42.5 % (45-73); Platelet Count 113 X10*3/uL (160-400); Red Blood Count 4.63 X10*6/uL (4.60-5.80); Red Cell Distribution Width 12.6 % (11.0-16.0); White Blood Count 6.7 X10*3/uL (4.8-10.8)
[2024-05-27 08:33] LABS: Estimated Average Glucose 223 mg/dL; Hemoglobin A1c % 9.4 % (<6.0)
[2024-05-27 09:02] LABS: Alanine Aminotransferase 18 U/L (0-40); Albumin Level 4.1 g/dL (3.5-5.0); Alkaline Phosphatase 49 U/L (39-117); Anion Gap 12 (12-20); Aspartate Amino Transferase 15 U/L (5-37); Bilirubin Total 0.8 mg/dL (0.0-1.0); Blood Urea Nitrogen 14 mg/dL (9-16); Calcium 8.9 mg/dL (8.4-10.2); Carbon Dioxide 28 mmol/L (22-29); Chloride 105 mmol/L (96-108); Cholesterol 105 mg/dL (<200); Estimated Glomerular Filt Rate > 60; Glucose Fasting 250 mg/dL (60-99); Glucose Random 249 mg/dL (60-115); HDL Cholesterol 37 mg/dL (>40); LDL Cholesterol Calculated 44 mg/dL (<100); Potassium 3.8 mmol/L (3.3-5.1); Sodium 141 mmol/L (135-145); Total Protein 6.5 g/dL (6.5-8.0); Triglycerides 124 mg/dL (<150); Valproate 101.1 mcg/mL (50.0-100.0)
[2024-05-27 09:05] LABS: Microalbum/Creatinine Ratio Ur 25.3 ug/mg cr (<30)
[2024-05-27 09:17] LABS: Erythrocyte Sedimentation Rate 1 MM/HR (0-15)
[2024-05-28 13:59] LABS: Transglutaminase Ab IgG <1.0 U/mL; Transglutaminase IgA <1.0 U/mL
[2024-05-30 10:38] LABS: Lamotrigine Lamictal 11.4 mcg/mL (2.5-15.0)
[2024-05-31 23:39] LABS: Endomysial IgA Antibody Negative (Negative)
== END 2024-05-27 07:24 | disposition home or self-care (01) ==
LOC: HO.LAB 07:23
PROVIDERS: Nurse Practitioner; Nurse Practitioner Family; PCP Physician Assistant; Visit Provider Physician Assistant
DX: D69.6 Thrombocytopenia, unspecified (principal); E11.9 Type 2 diabetes mellitus without complications; K52.9 Noninfective gastroenteritis and colitis, unspecified; R14.0 Abdominal distension (gaseous); E78.00 Pure hypercholesterolemia, unspecified; G40.909 Epilepsy, unspecified, not intractable, without status epilepticus; G47.26 Circadian rhythm sleep disorder, shift work type
CPT/HCPCS: 36415; 80053; 80061; 80164; 80175; 82043; 82570; 83036; 85025; 85652; 86231; 86364

== ENCOUNTER 2024-05-30 09:21 | Outpatient (AMB) | payer OTHER, SELFPAY ==
--- NOTE | 2024-05-30 09:24 | MHC.PC.OV ---
Vital Signs 05/30/24 09:29 Height 5 ft 9 in Weight 205 lb 8 oz BMI 30.3 Blood Pressure Location Lt brachial Position Sitting Pulse 67 Pulse Source Pulse Oximeter Pulse Oximetry (%) 98 Oxygen Delivery Method Room Air Intake Visit Reasons: f/u DMII / colitis Pin Attacher Required: No Accompanied by: Self / Same As Patient Allergies dulaglutide [From Trulicity] Adverse Reaction (Intermediate, Verified 05/30/24 10:18) GI upset metformin Adverse Reaction (Intermediate, Verified 05/30/24 10:18) Diarrhea Medication List - Last Reconciled 05/30/24 by Daron Pardo PA-C atorvastatin 80 mg PO BEDTIME cholecalciferol (vitamin D3) 50 mcg PO DAILY divalproex (Depakote) 1,000 mg (2 x 500 mg) PO BID 90 days lamotrigine (Lamictal) 100 mg PO BID 90 days linaclotide (Linzess) 145 mcg PO QAM linagliptin (Tradjenta) 5 mg PO DAILY 90 days omeprazole 40 mg PO DAILY 30 days Tobacco use date assessed: 01/25/24 Dental Screening Dental Screen Date: 01/25/24 HPI f/u DMII / colitis HPI Details Patient is a 44 year male here today for follow-up visit.? Patient has a past medical history significant for type 2 diabetes hyperlipidemia, history of epilepsy. Epilepsy: Followed by Neurology,? He has not had a seizure many years and continues on both divalproex and lamotrigine. .. Type 2 diabetes:? Patient continues send Tradjenta 5 mg. He reports he would not able to tolerate metformin and Trulicity due to GI symptoms. Unfortunately A1c now above 9. PLAN: Will plan to add on pioglitazone to his diabetic med regime for better glycemic control. Will consider insulin if A1c remains above 9 . . Colitis/colorectal cancer screening: Unfortunately continues to frequency of stool and abdominal bloating and pain after he eats. He has underwent lab testing for celiac which is negative. His gastric emptying study was normal. He has been started on Linzess and omeprazole for his symptoms. Will be following back up with [place] [facility]. Patient underwent colonoscopy which was normal, repeat in 10 years Laboratory Tests 11/24/20 11/25/23 05/27/24 11:21 09:36 07:34 Fasting Glucose 250 H Hemoglobin A1c % 7.6 H 9.4 H LDL Cholesterol, C alc 44 Urine Microalbumin 22.0 Tiss Transglutamin IgG <1.0 05/27/24 Unknown Fasting Glucose Hemoglobin A1c % LDL Cholesterol, C alc Urine Microalbumin 80.0 Tiss Transglutamin IgG PFSH Medical History Abdominal discomfort Dyspepsia Colitis Left wrist tendinitis Seizures Colitis Diabetes Elevated cholesterol Infection of nose Cellulitis Family history of coronary arteriosclerosis Surgical History H/O colonoscopy History of cholecystectomy Family History Mother No problems noted. Father Prostate cancer Maternal Uncle CAD (coronary artery disease) Paternal Uncle Bone cancer Paternal Aunt Ovarian cancer Paternal Aunt Thyroid cancer Paternal Aunt Breast cancer Other Mental health disorder Social History Housing: House Alcohol intake: current Alcohol intake frequency: holidays/special occasions only Patient Tobacco Use Status: Never used Tobacco e-Cigarette/Vaping Use: Never Used Second Hand Smoke Exposure: Yes service: No Current occupational status: employed Current occupation: [employer] Cognitive needs: No Hearing needs: No Vision needs: No Questionnaire PHQ-9 Over the last 2 weeks, how often have you been bothered by any of the following problems? 1. Little interest or pleasure in doing things: not at all 2. Feeling down, depressed, or hopeless: not at all 3. Trouble falling or staying asleep, or sleeping too much: not at all 4. Feeling tired or having little energy: not at all 5. Poor appetite or overeating: not at all 6. Feeling bad about yourself - or that you are a failure or have let yourself or your family down: not at all 7. Trouble concentrating on things, such as reading the newspaper or watching television: not at all 8. Moving or speaking so slowly that other people could have noticed. Or the opposite - being so fidgety or restless that you have been moving around a lot more than usual: not at all 9. Thoughts that you would be better off or of hurting yourself in some way: not at all Total score: 0 Depression Screening Interpretation: Negative Depression Screening Done: Yes 94560 - PHQ-9 Billing: Yes Source: Developed by Drs. Freedom Trammell, Iwona Curtis, Ken Joy and colleagues, with an educational deisi from [employer]. Thrive Questionnaire Date Thrive assessed: 05/30/24 I am a: Patient What is your living situation today?: I have a steady place to live Within the past 12 months, did the food you bought not last and you didn't have the money to get more?: Never true Within the past 12 months, did you worry whether your food would run out before you got money to buy more?: Never true Do you have trouble paying for medicines?: No Do you have trouble getting transportation to medical appointments?: No Do you have trouble paying your heating and electricity bill?: No Do you have trouble taking care of your child, family member or friend?: No Do you have trouble with day-to-day activities such as bathing, preparing meals, shopping, managing finances, etc.?: No Are you currently unemployed and looking for a job?: No Are you interested in more education?: No Please select the resources that you would like help with: None Currently or been in a relationship where the following occur: No concerns reported THRIVE Score: 0 AUDIT C Alcohol Use Questionnaire (AUDIT-C) 1. How often do you have a drink containing alcohol?: Never 3. How often do you have six or more drinks on one occasion?: Never Total Score: 0 RICHARD-7 AMB Questionnaire RICHARD-7 Date RICHARD - 7 assessed: 05/30/24 Feeling nervous, anxious, or on edge: 0 = Not at all Not being able to stop or control worryin = Not at all Worrying too much about different things: 0 = Not at all Trouble relaxin = Not at all Being so restless that it is hard to sit still: 0 = Not at all Becoming easily annoyed or irritable: 0 = Not at all Feeling afraid as if something awful might happen: 0 = Not at all Total RICHARD-7 score (0-4 normal; 5-9 mild; 10-14 moderate; 15-21 severe): 0 Source: Developed by Iwona CobosW. Ever, Ken Joy and colleagues, with an educational deisi from [employer]. RICHARD-7 Assessment Billing RICHARD-7 Assessment Tool: RICHARD-7 Assessment 05233 Review of Systems Const Denies headache(s) Eyes Denies loss of vision ENT Denies vertigo, Denies dizziness, Denies headache(s) and Denies sore throat Card Denies chest pain, Denies leg edema and Denies lightheadedness Resp Denies cough, Denies hemoptysis and Denies wheezing GI Reports abdominal pain, Denies melena, Reports constipation, Reports GI cramping, Denies diarrhea and Denies vomiting Denies dysuria, Denies urinary frequency and Denies urinary urgency Musc Denies arthralgias, Denies joint swelling, Denies numbness and Denies tingling Neuro Denies Abnormal speech present, Denies behavioral changes, Denies vertigo, Denies dizziness, Denies headache(s), Denies loss of vision, Denies memory loss, Denies numbness and Denies tingling Psych Denies anxiety, Denies behavioral changes, Denies depression, Denies memory loss and Denies panic attacks Luis F/Lymph Denies easy bleeding and Denies easy bruising Aller/Immun Denies wheezing Physical exam (Primary Care) Vital Signs: Last Vital Signs Pulse 67 05/30/24 09:29 Pulse Ox 98 05/30/24 09:29 Oxygen Delivery Method Room Air 05/30/24 09:29 BMI result Body Mass Index 30.3 Tobacco/Smoking Status: Tobacco use Status Tobacco use date assessed 01/25/24 05/30/24 09:27 Patient Tobacco Use Status Never used Tobacco 05/30/24 09:27 e-Cigarette/Vaping Use Never Used 05/30/24 09:27 PHQ-9: PHQ-9 Score PHQ-9: Total score 0 05/30/24 09:44 Depression Screening Interpretation: Negative Thrive Assessment: Date of Thrive Assessment Date Thrive assessed 05/30/24 05/30/24 09:27 Currently or been in a relationship where the following occur: No concerns reported Const General: healthy appearing, no acute distress, alert and awake Nutritional Appearance: well nourished Orientation/consciousness: oriented to person, oriented to place and oriented to time HENMT Ears: TM's normal bilaterally General nose exam: Normal nasal mucous membranes and turbinates present Eyes Conjunctivae: conjunctivae normal Sclerae: sclerae normal Pupils: Equal, round and reactive pupils present Neck Neck: Yes no lymphadenopathy and Yes no JVD Thyroid: Thyroid normal Carotids: no bruits Resp Effort & Inspection: normal respiratory effort and not tachypneic Auscultation: no crackles, no rales, no rhonchi and no wheezes Cardio Rate: regular rate Rhythm: regular rhythm Heart sounds: no murmurs and normal S1 and S2 GI Palpation (GI): Soft to palpation, nontender, no hepatomegaly and no splenomegaly Auscultation: normal bowel sounds Skin General skin exam: no rashes or lesions noted and dry skin Neuro General: oriented to person, oriented to place and oriented to time Cranial nerves: Yes Equal, round and reactive pupils present Speech: No Abnormal speech present Gait exam (Neuro): Normal gait present Motor exam (neuro): no tremor noted Extrem Right upper extremity: full ROM Left upper extremity: full ROM Right lower extremity: full ROM; no edema Left lower extremity: full ROM; no edema Psych Mental Status: mental status grossly normal Speech and movement: Normal speech and movement present Affect: normal affect Attitude: cooperative Thought process: Normal thought process present Assessment and Plan Assessment & Plan (1) DMII (diabetes mellitus, type 2): Code(s): E11.9 - Type 2 diabetes mellitus without complications Qualifiers: Diabetes mellitus complication status: without complication Diabetes mellitus nursing home insulin use: without long term care social worker use Qualified Code(s): E11.9 - Type 2 diabetes mellitus without complications Plan: Patient's type 2 diabetes suboptimally controlled with A1c above 9. He continues on Tradjenta 5 mg. He denies any changes in his diet and physical activity. Will add on pioglitazone for better glycemic control. He reports he was not able to tolerate metformin or Trulicity due to GI symptoms. If A1c remains above 9 next 3 months will consider starting daily insulin. (2) Epilepsy: Comment: last seizure > 6 yrs ago. h/o VPN. Code(s): G40.909 - Epilepsy, unspecified, not intractable, without status epilepticus Qualifiers: Epilepsy type: unspecified Intractability: not intractable Status epilepticus: without status epilepticus Qualified Code(s): G40.909 - Epilepsy, unspecified, not intractable, without status epilepticus Plan: Patient followed by Neurology. Continues on Depakote and Lamictal and has not had any seizure activity for over 7 years. (3) HLD (hyperlipidemia): Code(s): E78.5 - Hyperlipidemia, unspecified Qualifiers: Hyperlipidemia type: pure hypercholesterolemia Qualified Code(s): E78.00 - Pure hypercholesterolemia, unspecified Plan: Most recent lipid panel showing excellent control his total cholesterol and LDL. Continues on high-dose statin therapy. Goal LDL to be below 100 (4) Obese: Code(s): E66.9 - Obesity, unspecified Qualifiers: Body mass index: BMI 31.0-31.9 Obesity classification: adult class 1 (BMI 30 - 34.9) Obesity type: due to excess calories Serious obesity comorbidity presence: with serious comorbidity Qualified Code(s): E66.09 - Other obesity due to excess calories; Z68.31 - Body mass index [BMI] 31.0-31.9, adult Plan: Patient does understand his BMI is over 30 will continue working on lifestyle modifications to reduce his weight. (5) Colitis: Code(s): K52.9 - Noninfective gastroenteritis and colitis, unspecified Plan: Has been followed by gastroenterology and has had workup including colonoscopy and gastric emptying study which were both normal. Celiac testing has been normal. He does report he is lactose intolerant has been following a lactose free diet. He has been started on Linzess and omeprazole 40 mg Unfortunately continues to have abdominal pain and bloating especially after he eats. (6) Left wrist tendinitis: Code(s): M77.8 - Other enthesopathies, not elsewhere classified Orders: Orders Hemoglobin A1c 3 Months E11.9 - Type 2 diabetes mellitus without complications Comprehensive [place]. Panel Fast 3 Months E11.9 - Type 2 diabetes mellitus without complications XR wrist LT 2V Today M77.8 - Other enthesopathies, not elsewhere classified Referrals Nutrition/Dietitian Referral E11.9 - Type 2 diabetes mellitus without complications Medications: New pioglitazone 15 mg PO DAILY 90 tabs 0RF 90 days E11.9 - Type 2 diabetes mellitus without complications diclofenac sodium 1% apply to single elbow, wrist or hand; for hand includes palm/fingers/back of hand 2 grams topical QID 100 grams 0RF 30 days M77.8 - Other enthesopathies, not elsewhere classified blood sugar diagnostic (FreeStyle Lite Strips) Once per day as needed 100 ea 3RF E11.9 - Type 2 diabetes mellitus without complications Patient Instructions: Goal: A1c to be below 7, LDL to remain below 100 Barriers: Adherence to physical activity and healthy eating habits Coding Level of Care Code Est Pt Level 4 (61773) Diagnoses Type 2 diabetes mellitus without complication, without long-term current use of insulin E11.9 Diabetes mellitus complication status: without complication Diabetes mellitus long term care social worker insulin use: without nursing home use Nonintractable epilepsy without status epilepticus, unspecified epilepsy type G40.909 Epilepsy type: unspecified Intractability: not intractable Status epilepticus: without status epilepticus Pure hypercholesterolemia E78.00 Hyperlipidemia type: pure hypercholesterolemia Class 1 obesity due to excess calories with serious comorbidity and body mass index (BMI) of 31.0 to 31.9 in adult E66.09; Z68.31 Body mass index: BMI 31.0-31.9 Obesity classification: adult class 1 (BMI 30 - 34.9) Obesity type: due to excess calories Serious obesity comorbidity presence: with serious comorbidity Colitis K52.9 Left wrist tendinitis M77.8 Additional Codes RICHARD-7 Assessment Billing - RICHARD-7 Assessment Tool: RICHARD-7 Assessment [id number] ([id number])
[2024-05-30 09:29] VITALS: PULSE 67; O2SAT 98; BMI 30.3
== END 2024-05-30 10:05 | disposition home or self-care (01) ==
PROVIDERS: PCP Physician Assistant; Visit Provider Physician Assistant
DX: E11.9 Type 2 diabetes mellitus without complications (principal); G40.909 Epilepsy, unspecified, not intractable, without status epilepticus; E78.00 Pure hypercholesterolemia, unspecified; E66.09 Other obesity due to excess calories; Z68.31 Body mass index [BMI] 31.0-31.9, adult; K52.9 Noninfective gastroenteritis and colitis, unspecified; M77.8 Other enthesopathies, not elsewhere classified

== ENCOUNTER → 2024-05-30 09:21 | Outpatient (BNVA) | payer OTHER, SELFPAY | PROVIDERS: PCP Physician Assistant; Visit Provider Physician Assistant | DX: K86.81 Exocrine pancreatic insufficiency (principal); R14.0 Abdominal distension (gaseous); E11.9 Type 2 diabetes mellitus without complications; G40.909 Epilepsy, unspecified, not intractable, without status epilepticus; E78.00 Pure hypercholesterolemia, unspecified; E66.09 Other obesity due to excess calories; Z68.31 Body mass index [BMI] 31.0-31.9, adult; K52.9 Noninfective gastroenteritis and colitis, unspecified; M77.8 Other enthesopathies, not elsewhere classified | CPT/HCPCS: 96127; 99212 ==

== ENCOUNTER 2024-05-30 10:14 | Outpatient (AMB) | payer OTHER, SELFPAY ==
--- NOTE | 2024-05-30 10:17 | A.OFFVIS_ITS ---
Intake Visit Reasons: 6 week follow up Intake Note: Kristian presents in office today for a scheduled 6 week FUV. CC; Pt reports that they have remained stable since their last visit but have not seen many signs of improvement. Pt still reporting the same chronic sx as their last visit. Pt reports that they are still taking their rx'd medications as intended without any complications. Pt states that the linzess has helped with BMs somewhat. However, the omeprazole has not had any therapeutic response to this point. Post Acute Care Registered Nurse Required: No Allergies dulaglutide [From [facility]] Adverse Reaction (Intermediate, Verified 05/30/24 10:18) GI upset metformin Adverse Reaction (Intermediate, Verified 05/30/24 10:18) Diarrhea HPI HPI 6 week follow up: Details: Assessment & Plan (1) Dyspepsia: Code(s): R10.13 - Epigastric pain Category: Medical (2) Early satiety: Code(s): R68.81 - Early satiety Category: Medical Plan He is agreeable to a 10 year recall. He continues to have burning in the upper abdomen with bloating that is intermittent and frequent dyspepsia. He will frequently have to jump up after he goes to bed and vomit and he will have the feeling of regurg coming up to his chest. This despite the fact that there has been for 5 hours between the last meal and when he lays down to bed. The patient is diabetic, so possible diagnoses would include diabetic gastroparesis or an H pylori infection. We will get AH pylori breath test today and I will order a gastric emptying study. I also going to start him on omeprazole 40 mg once a day to see if this gives him some symptom relief in the interim. He does sometimes experience early satiety but in general his appetite is good. He is utilizing the Linzess every day and he finds that he is moving his bowels well. This has not made any difference in his initial symptom presentation. Return office visit in 6 weeks to evaluate the omeprazole and go over the H pylori testing Orders: Orders NM gastric emptying study Today R10.13 - Epigastric pain, R68.81 - Early satiety H Pylori Breath Test Today R10.13 - Epigastric pain Medications: New omeprazole 40 mg PO DAILY 30 caps 3RF 30 days LABS: Laboratory Tests 04/18/24 10:48 H. pylori Breath Test Negative GASTRIC EMPTYING STUDY 05/21/24 IMPRESSION: Normal 4-hour solid food gastric emptying study. TODAY'S VISIT He is doing better with pain and BM, but bloating still remains. Will add creon to his omeprazole and LInzess. Has burning has resolved with the omeprazole. ROV 8 weeks. [facility] Medical History (Updated 05/30/24 @ 12:36 by CRYSTAL Escobedo) Abdominal discomfort Dyspepsia Colitis Left wrist tendinitis Seizures Colitis Diabetes Elevated cholesterol Infection of nose Cellulitis Family history of coronary arteriosclerosis Surgical History H/O colonoscopy History of cholecystectomy Family History Mother No problems noted. Father Prostate cancer Maternal Uncle CAD (coronary artery disease) Paternal Uncle Bone cancer Paternal Aunt Ovarian cancer Paternal Aunt Thyroid cancer Paternal Aunt Breast cancer Other Mental health disorder Social History Housing: House Alcohol intake: current Alcohol intake frequency: holidays/special occasions only Patient Tobacco Use Status: Never used Tobacco e-Cigarette/Vaping Use: Never Used Second Hand Smoke Exposure: Yes service: No Current occupational status: employed Current occupation: [employer] Cognitive needs: No Hearing needs: No Vision needs: No Review of Systems Const Denies fatigue, Denies fever(s), Denies night sweats, Denies poor appetite and Denies weight loss ENT Reports Normal hearing present, Denies dental pain, Denies dysphagia, Denies hearing loss, Denies mouth pain, Denies odynophagia, Denies throat swelling, Denies tongue swelling and Reports other (Dentition adequate) Card Reports no additional complaints Resp Reports no additional complaints GI Details: Denies abdominal pain, Denies melena, Reports bloating, Denies hematochezia, Reports constipation, Denies GI cramping, Denies dysphagia, Denies excessive flatus, Denies early satiety, Reports heartburn, Reports diarrhea, Denies nausea, Denies odynophagia, Denies vomiting and Denies hematemesis Skin/Breast Denies pruritus, Denies lesions, Denies rash and Denies jaundice Neuro Reports Normal hearing present and Denies Abnormal speech present Endo Denies fatigue Aller/Immun Denies throat swelling and Denies tongue swelling Physical Exam Const General: cooperative, no acute distress, well developed and well groomed Nutritional Appearance: well nourished and obese Orientation/consciousness: oriented to person, oriented to place and oriented to time Limitations: No language barrier HEENT Head: Yes normocephalic and Yes atraumatic Eyes General: appearance normal, both eyes and all related structures Pupils: Equal, round and reactive pupils present Neck Neck: Yes normal visual inspection and Yes no lymphadenopathy Thyroid: Thyroid normal Resp Effort & Inspection: normal respiratory effort and able to speak in complete sentences Auscultation: clear to auscultation bilaterally Cardio Rate: regular rate Rhythm: regular rhythm Heart sounds: Normal, physiologic split S2 sound present Peripheral pulses: radial pulses present and posterior tibial pulses present GI Inspection: No distended, No Abdominal panniculus present and Yes obesity Palpation (GI): Soft to palpation, nontender, no guarding, not rigid and No hepatosplenomegaly present Percussion: Yes normal to percussion Auscultation: normal bowel sounds Rectal Exam - Male: Yes deferred Skin General skin exam: no rashes or lesions noted, turgor normal, skin not dry, no jaundice, No spider nevi and no striae Rashes: no rashes Nails: normal Neuro General: oriented to person, oriented to place and oriented to time Cranial nerves: Yes Equal, round and reactive pupils present and Yes Normal hearing present Speech: No Abnormal speech present Extrem General: Yes normal to inspection, No clubbing, No cyanosis and No edema Psych Appearance: grossly normal and well kempt Mental Status: mental status grossly normal Speech and movement: Normal speech and movement present Affect: normal affect Attitude: cooperative Thought process: Normal thought process present and not confabulating Thought content: Normal thought content present Insight: Fair insight present (Psych) Judgement: Fair judgement present (Psych) Assessment & Plan Assessment & Plan (1) Exocrine pancreatic insufficiency: Code(s): K86.81 - Exocrine pancreatic insufficiency Category: Medical (2) IBS (irritable bowel syndrome): Code(s): K58.9 - Irritable bowel syndrome without diarrhea Category: Medical (3) Abdominal bloating: Code(s): R14.0 - Abdominal distension (gaseous) Category: Medical Plan He is doing better with pain and BM, but bloating still remains. Will add creon to his omeprazole and LInzess. Has burning has resolved with the omeprazole. ROV 8 weeks. Medications: New [id number] 24,000-76,000 -120,000 unit (Creon) 2 caps PO BID 120 caps 6RF 30 days K58.9 - Irritable bowel syndrome without diarrhea, K86.81 - Exocrine pancreatic insufficiency Coding Level of Care Code Est Pt Level 3 (45862) Diagnoses Exocrine pancreatic insufficiency K86.81 IBS (irritable bowel syndrome) K58.9 Abdominal bloating R14.0
== END 2024-05-30 11:37 | disposition home or self-care (01) ==
PROVIDERS: PCP Physician Assistant; Visit Provider Nurse Practitioner
DX: K86.81 Exocrine pancreatic insufficiency (principal); K58.9 Irritable bowel syndrome, unspecified; R14.0 Abdominal distension (gaseous)
CPT/HCPCS: 99213

== ENCOUNTER 2024-09-10 10:05 | Outpatient (REF) | payer OTHER, SELFPAY ==
[2024-09-10 12:04] LABS: Estimated Average Glucose 171 mg/dL; Hemoglobin A1c % 7.6 % (<6.0)
[2024-09-10 12:35] LABS: Alanine Aminotransferase 24 U/L (0-40); Albumin Level 4.2 g/dL (3.5-5.0); Alkaline Phosphatase 37 U/L (39-117); Anion Gap 9 (12-20); Aspartate Amino Transferase 22 U/L (5-37); Blood Urea Nitrogen 14 mg/dL (9-16); Calcium 9.1 mg/dL (8.4-10.2); Carbon Dioxide 29 mmol/L (22-29); Chloride 107 mmol/L (96-108); Estimated Glomerular Filt Rate > 60; Glucose Fasting 160 mg/dL (60-99); Potassium 4.4 mmol/L (3.3-5.1); Sodium 141 mmol/L (135-145); Total Protein 6.9 g/dL (6.5-8.0)
[2024-09-10 12:45] LABS: Creatinine Urine 188.91 mg/dL; Microalbum/Creatinine Ratio Ur 9.5 ug/mg cr (<30)
[2024-09-10 13:03] LABS: Prostate Specific Antigen Scr 0.42 ng/mL (<0.05-4.0)
== END 2024-09-10 10:06 | disposition home or self-care (01) ==
LOC: HO.LAB 10:05
PROVIDERS: PCP Physician Assistant; Visit Provider Physician Assistant
DX: E11.9 Type 2 diabetes mellitus without complications (principal); E78.00 Pure hypercholesterolemia, unspecified; G40.909 Epilepsy, unspecified, not intractable, without status epilepticus; K86.81 Exocrine pancreatic insufficiency
CPT/HCPCS: 36415; 80053; 82043; 82570; 83036; 84153; 96127; 99212

== ENCOUNTER 2024-09-10 10:05 | Outpatient (AMB) | payer OTHER, SELFPAY ==
--- NOTE | 2024-09-10 10:11 | MHC.PC.OV ---
Vital Signs 09/10/24 10:16 Height 5 ft 9 in Weight 215 lb 4 oz BMI 31.8 BP 120/70 Blood Pressure Location Lt brachial Position Sitting Pulse 65 Pulse Source Pulse Oximeter Pulse Oximetry (%) 97 Oxygen Delivery Method Room Air Intake Visit Reasons: f/u DMII Breastfeeding Peer Counselor Required: No Accompanied by: Self / Same As Patient Allergies [facility] [[facility]] Adverse Reaction (Intermediate, Verified 09/10/24 10:24) GI upset metformin Adverse Reaction (Intermediate, Verified 09/10/24 10:24) Diarrhea Medication List - Last Reconciled 09/10/24 by Daron Pardo PA-C atorvastatin 80 mg PO BEDTIME blood sugar diagnostic (FreeStyle Lite Strips) Once per day as needed cholecalciferol (vitamin D3) 50 mcg PO DAILY diclofenac sodium 1% 2 grams topical QID 30 days divalproex (Depakote) 1,000 mg (2 x 500 mg) PO BID 90 days lamotrigine (Lamictal) 100 mg PO BID 90 days linaclotide (Linzess) 145 mcg PO QAM linagliptin (Tradjenta) 5 mg PO DAILY 90 days hihtxj-ygnnajqw-mlogkuu 24,000-76,000 -120,000 unit (Creon) 2 caps PO BID 30 days omeprazole 40 mg PO DAILY pioglitazone 15 mg PO DAILY 90 days Tobacco use date assessed: 09/10/24 Dental Screening Dental Screen Date: 09/10/24 Did you have a dental visit in the last 12 months?: Yes Did you have a dental problem in the last 6 months where you did not have access to dental care?: No Was dental information given to patient?: Patient has dentist HPI f/u DMII HPI Details Patient is a 44 year male here today for follow-up visit.? Patient has a past medical history significant for type 2 diabetes hyperlipidemia, history of epilepsy. Epilepsy: Followed by Neurology,? He has not had a seizure many years and continues on both divalproex and lamotrigine. .. Type 2 diabetes:? At last visit we added on pioglitazone 15 mg. He was to continue for Tradjenta 5 mg daily. Despite having dietary constraints, the patient's blood glucose levels remain of concern, with a reported reading of 173 mg/dL after fasting. The patient's hemoglobin A1c has improved from 9.4% to 8.0% since the last visit. The patient seeks further assistance for appetite suppression as part of diabetes management . . Colitis/ abdominal discomfort: Has pretty much resolved with the addition of omeprazole on Creon. Laboratory Tests 05/27/24 07:34 Fasting Glucose 250 H Hemoglobin A1c % 9.4 H LDL Cholesterol, C alc 44 [facility] Medical History Abdominal discomfort Dyspepsia Colitis Left wrist tendinitis Seizures Colitis Diabetes Elevated cholesterol Infection of nose Cellulitis Family history of coronary arteriosclerosis Surgical History H/O colonoscopy History of cholecystectomy Family History Mother No problems noted. Father Prostate cancer Maternal Uncle CAD (coronary artery disease) Paternal Uncle Bone cancer Paternal Aunt Ovarian cancer Paternal Aunt Thyroid cancer Paternal Aunt Breast cancer Other Mental health disorder Social History Housing: House Alcohol intake: current Alcohol intake frequency: holidays/special occasions only Patient Tobacco Use Status: Never used Tobacco e-Cigarette/Vaping Use: Never Used Second Hand Smoke Exposure: Yes service: No Current occupational status: employed Current occupation: [employer] Cognitive needs: No Hearing needs: No Vision needs: No Questionnaire PHQ-9 Over the last 2 weeks, how often have you been bothered by any of the following problems? 1. Little interest or pleasure in doing things: not at all 2. Feeling down, depressed, or hopeless: not at all 3. Trouble falling or staying asleep, or sleeping too much: not at all 4. Feeling tired or having little energy: not at all 5. Poor appetite or overeating: not at all 6. Feeling bad about yourself - or that you are a failure or have let yourself or your family down: not at all 7. Trouble concentrating on things, such as reading the newspaper or watching television: not at all 8. Moving or speaking so slowly that other people could have noticed. Or the opposite - being so fidgety or restless that you have been moving around a lot more than usual: not at all 9. Thoughts that you would be better off or of hurting yourself in some way: not at all Total score: 0 Depression Screening Interpretation: Negative Depression Screening Done: Yes 38840 - PHQ-9 Billing: Yes Source: Developed by Drs. Freedom Trammell, Iwona Curtis, Ken Joy and colleagues, with an educational deisi from [employer]. Thrive Questionnaire Date Thrive assessed: 09/10/24 I am a: Patient What is your living situation today?: I have a steady place to live Within the past 12 months, did the food you bought not last and you didn't have the money to get more?: Never true Within the past 12 months, did you worry whether your food would run out before you got money to buy more?: Never true Do you have trouble paying for medicines?: No Do you have trouble getting transportation to medical appointments?: No Do you have trouble paying your heating and electricity bill?: No Do you have trouble taking care of your child, family member or friend?: No Do you have trouble with day-to-day activities such as bathing, preparing meals, shopping, managing finances, etc.?: No Are you currently unemployed and looking for a job?: No Are you interested in more education?: No Please select the resources that you would like help with: None Currently or been in a relationship where the following occur: No concerns reported THRIVE Score: 0 AUDIT C Alcohol Use Questionnaire (AUDIT-C) 1. How often do you have a drink containing alcohol?: Never 3. How often do you have six or more drinks on one occasion?: Never Total Score: 0 RICHARD-7 AMB Questionnaire RICHARD-7 Date RICHARD - 7 assessed: 09/10/24 Feeling nervous, anxious, or on edge: 0 = Not at all Not being able to stop or control worryin = Not at all Worrying too much about different things: 0 = Not at all Trouble relaxin = Not at all Being so restless that it is hard to sit still: 0 = Not at all Becoming easily annoyed or irritable: 0 = Not at all Feeling afraid as if something awful might happen: 0 = Not at all Total RICHARD-7 score (0-4 normal; 5-9 mild; 10-14 moderate; 15-21 severe): 0 Source: Developed by Drs. Freedom Trammell, Iwona Curtis, Ken Joy and colleagues, with an educational deisi from [employer]. RICHARD-7 Assessment Billing RICHARD-7 Assessment Tool: RICHARD-7 Assessment 07590 Review of Systems Const Denies headache(s) Eyes Denies loss of vision ENT Denies vertigo, Denies dizziness, Denies headache(s) and Denies sore throat Card Denies chest pain, Denies leg edema and Denies lightheadedness Resp Denies cough, Denies hemoptysis and Denies wheezing GI Denies abdominal pain, Denies melena, Denies constipation, Denies diarrhea and Denies vomiting Denies dysuria, Denies urinary frequency and Denies urinary urgency Musc Denies arthralgias, Denies joint swelling, Denies numbness and Denies tingling Neuro Denies Abnormal speech present, Denies behavioral changes, Denies vertigo, Denies dizziness, Denies headache(s), Denies loss of vision, Denies memory loss, Denies numbness and Denies tingling Psych Denies anxiety, Denies behavioral changes, Denies depression, Denies memory loss and Denies panic attacks Luis F/Lymph Denies easy bleeding and Denies easy bruising Aller/Immun Denies wheezing Physical exam (Primary Care) Vital Signs: Last Vital Signs Pulse 65 09/10/24 10:16 BP 120/70 09/10/24 10:16 Pulse Ox 97 09/10/24 10:16 Oxygen Delivery Method Room Air 09/10/24 10:16 BMI result Body Mass Index 31.8 Tobacco/Smoking Status: Tobacco use Status Tobacco use date assessed 09/10/24 09/10/24 10:22 Patient Tobacco Use Status Never used Tobacco 09/10/24 10:11 e-Cigarette/Vaping Use Never Used 09/10/24 10:11 PHQ-9: PHQ-9 Score PHQ-9: Total score 0 09/10/24 10:22 Depression Screening Interpretation: Negative Thrive Assessment: Date of Thrive Assessment Date Thrive assessed 09/10/24 09/10/24 10:22 Currently or been in a relationship where the following occur: No concerns reported Const General: healthy appearing, no acute distress, alert and awake Nutritional Appearance: well nourished Orientation/consciousness: oriented to person, oriented to place and oriented to time HENMT Ears: TM's normal bilaterally General nose exam: Normal nasal mucous membranes and turbinates present Eyes Conjunctivae: conjunctivae normal Sclerae: sclerae normal Pupils: Equal, round and reactive pupils present Neck Neck: Yes no lymphadenopathy and Yes no JVD Thyroid: Thyroid normal Carotids: no bruits Resp Effort & Inspection: normal respiratory effort and not tachypneic Auscultation: no crackles, no rales, no rhonchi and no wheezes Cardio Rate: regular rate Rhythm: regular rhythm Heart sounds: no murmurs and normal S1 and S2 GI Palpation (GI): Soft to palpation, nontender, no hepatomegaly and no splenomegaly Auscultation: normal bowel sounds Skin General skin exam: no rashes or lesions noted and dry skin Neuro General: oriented to person, oriented to place and oriented to time Cranial nerves: Yes Equal, round and reactive pupils present Speech: No Abnormal speech present Gait exam (Neuro): Normal gait present Motor exam (neuro): no tremor noted Extrem Right upper extremity: full ROM Left upper extremity: full ROM Right lower extremity: full ROM; no edema Left lower extremity: full ROM; no edema Psych Mental Status: mental status grossly normal Speech and movement: Normal speech and movement present Affect: normal affect Attitude: cooperative Thought process: Normal thought process present Results AMB Hemoglobin A1c AMB Hemoglobin A1c 8.0 % Last Edit by BULMARO Link on 09/10/24 10:24 Results Reviewed Results Reviewed: Laboratory Last Values Hgb A1c (Clinic) 8.0 % (4.0-6.0) H 09/10/24 10:10 Coding Level of Care Code Est Pt Level 4 (52388) Diagnoses Type 2 diabetes mellitus without complication, without long-term current use of insulin E11.9 Diabetes mellitus complication status: without complication Diabetes mellitus biological sciences instructor insulin use: without jail use Pure hypercholesterolemia E78.00 Hyperlipidemia type: pure hypercholesterolemia Nonintractable epilepsy without status epilepticus, unspecified epilepsy type G40.909 Epilepsy type: unspecified Intractability: not intractable Status epilepticus: without status epilepticus Exocrine pancreatic insufficiency K86.81 Additional Codes RICHARD-7 Assessment Billing - RICHARD-7 Assessment Tool: RICHARD-7 Assessment 90646 ([id number]) PHQ-9 - 27273 - PHQ-9 Billing: Yes ([id number]) Assessment & Plan Assessment & Plan (1) DMII (diabetes mellitus, type 2): Code(s): E11.9 - Type 2 diabetes mellitus without complications Category: Medical Qualifiers: Diabetes mellitus complication status: without complication Diabetes mellitus jail insulin use: without biological sciences instructor use Qualified Code(s): E11.9 - Type 2 diabetes mellitus without complications Plan: Patient's type 2 diabetes still suboptimally controlled though improved from previous. Will add on GLP once a week injection to help with glycemic control and appetite suppression. If able to get GLP 1 will have him hold his Tradjenta. Will continue current dose of pioglitazone. He will continue working on diabetic diet and try additional physical activity to help his glycemic control. Goal A1c is to be below 7.0 (2) HLD (hyperlipidemia): Code(s): E78.5 - Hyperlipidemia, unspecified Category: Medical Qualifiers: Hyperlipidemia type: pure hypercholesterolemia Qualified Code(s): E78.00 - Pure hypercholesterolemia, unspecified Plan: Patient continues with high-dose statin therapy with good effect. Most recent lipid panel showing excellent control of his total cholesterol and LDL. Goal LDL is to remain below 100 (3) Epilepsy: Comment: last seizure > 6 yrs ago. h/o VPN. Code(s): G40.909 - Epilepsy, unspecified, not intractable, without status epilepticus Category: Medical Qualifiers: Epilepsy type: unspecified Intractability: not intractable Status epilepticus: without status epilepticus Qualified Code(s): G40.909 - Epilepsy, unspecified, not intractable, without status epilepticus Plan: Continues without any seizure activity for quite some time now. Current antiepileptic medication has been very effective. (4) Exocrine pancreatic insufficiency: Code(s): K86.81 - Exocrine pancreatic insufficiency Category: Medical Plan: As per HPI patient has followed with gastroenterology and has been started on PPI therapy and Creon which has significantly reduced his abdominal bloating/pain and loose stools. Orders: Orders AMB Hemoglobin A1c Today E11.9 - Type 2 diabetes mellitus without complications Microalbumin, Random (w Creat) Today E11.9 - Type 2 diabetes mellitus without complications Prostate Specific Antigen Scr Today E11.9 - Type 2 diabetes mellitus without complications, Z12.5 - Encounter for screening for malignant neoplasm of prostate Medications: New tirzepatide (Mounjaro) for 4 weeks 2.5 mg (0.5 mL) subcut QWEEK 2 mL 1RF 4 weeks E11.9 - Type 2 diabetes mellitus without complications On Hold linagliptin (Tradjenta) Hold Comment: Doctor's Order 5 mg PO DAILY 90 days 90 tabs 2RF E11.9 - Type 2 diabetes mellitus without complications Patient Instructions: Goal: A1c to be below 7.0, LDL to remain below 100 Barriers: Adherence to physical activity and healthy eating habits
[2024-09-10 10:16] VITALS: BP 120/70; PULSE 65; O2SAT 97; BMI 31.8
== END 2024-09-10 10:38 | disposition home or self-care (01) ==
PROVIDERS: PCP Physician Assistant; Visit Provider Physician Assistant
DX: E11.9 Type 2 diabetes mellitus without complications (principal); E78.00 Pure hypercholesterolemia, unspecified; G40.909 Epilepsy, unspecified, not intractable, without status epilepticus; K86.81 Exocrine pancreatic insufficiency

== ENCOUNTER 2024-12-02 15:11 | Outpatient (AMB) | payer OTHER, SELFPAY ==
--- NOTE | 2024-12-02 15:16 | A.OFFVIS_ITS ---
Vital Signs 12/02/24 15:17 Height 5 ft 9 in Weight 185 lb BMI 27.3 BP 124/82 Blood Pressure Location Rt brachial Position Sitting Pulse 84 Pulse Source Pulse Oximeter Pulse Oximetry (%) 96 Oxygen Delivery Method Room Air Intake Visit Reasons: Follow Up 6mo Intake Note: Patient presents follow up Sleep. Labs in chart Allergies [facility] [[facility]] Adverse Reaction (Intermediate, Verified 12/02/24 15:25) GI upset metformin Adverse Reaction (Intermediate, Verified 12/02/24 15:25) Diarrhea Medication List - Last Reconciled 12/02/24 by CALVIN Ledbetter atorvastatin 80 mg PO BEDTIME blood sugar diagnostic (FreeStyle Lite Strips) Once per day as needed cholecalciferol (vitamin D3) 50 mcg PO DAILY diclofenac sodium 1% 2 grams topical QID 30 days divalproex (Depakote) 1,000 mg (2 x 500 mg) PO BID 90 days lamotrigine (Lamictal) 100 mg PO BID 90 days linaclotide (Linzess) 145 mcg PO QAM linagliptin (Tradjenta) 5 mg PO DAILY 90 days uvezlz-gwiylmnn-vhetmip 24,000-76,000 -120,000 unit (Creon) 2 caps PO BID 30 days omeprazole 40 mg PO DAILY pioglitazone 15 mg PO DAILY 90 days semaglutide (Ozempic) 0.5 mg (0.736 mL) subcut QWEEK 4 weeks HPI Comments Details: 44-yr-old male presents for follow-up visit for seizure disorder. Pt denies any significant interval medical changes. However, she has started on Wegovy, and has started to have a noticeable weight loss and reduction in his hemoglobin A1C.. Pt denies any interval seizure activity. Last seizure was 7 yrs ago. Complaint w/ Lamictal and Depakote- taking q 8am and 8pm. 05/27/2024- valproic acid level 101.1 H, Lamictal level 11.4 W now. No rashes, skin changes. 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 Continues to work hotel night auditor. Sleeps well during the day. [facility] Medical History Abdominal discomfort Dyspepsia Colitis Left wrist tendinitis Seizures Colitis Diabetes Elevated cholesterol Infection of nose Cellulitis Family history of coronary arteriosclerosis Surgical History H/O colonoscopy History of cholecystectomy Family History Mother No problems noted. Father Prostate cancer Maternal Uncle CAD (coronary artery disease) Paternal Uncle Bone cancer Paternal Aunt Ovarian cancer Paternal Aunt Thyroid cancer Paternal Aunt Breast cancer Other Mental health disorder Social History Housing: House Alcohol intake: current Alcohol intake frequency: holidays/special occasions only Patient Tobacco Use Status: Never used Tobacco e-Cigarette/Vaping Use: Never Used Second Hand Smoke Exposure: Yes service: No Current occupational status: employed Current occupation: [employer] Cognitive needs: No Hearing needs: No Vision needs: No Physical Exam Vital Signs: Last Vital Signs Pulse 84 12/02/24 15:17 BP 124/82 12/02/24 15:17 Pulse Ox 96 12/02/24 15:17 Oxygen Delivery Method Room Air 12/02/24 15:17 BMI result Body Mass Index 27.3 Const General: cooperative and no acute distress Orientation/consciousness: patient oriented x3 Resp Effort & Inspection: normal respiratory effort and able to speak in complete sentences Neuro General: patient oriented x3 Cranial nerves: Yes CN's II-XII intact bilaterally Cognition (Neuro): normal cognition Psych Appearance: grossly normal Mental Status: mental status grossly normal Speech and movement: Normal speech and movement present Affect: normal affect Attitude: cooperative Assessment & Plan Assessment & Plan (1) Epilepsy: Comment: last seizure > 6 yrs ago. h/o VPN. 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 Continue Lamotrigine 10omg every 12 hrs Continue Valproate 1000 mg every 12 hrs Melatonin prn- for sleep. Pt advised to NOT drive within 6 months of any seizure activity w/ AMS. Pt to f/u in 6 months or sooner prn. 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
[2024-12-02 15:17] VITALS: BP 124/82; PULSE 84; O2SAT 96; BMI 27.3
--- OUTSIDE RECORDS SUMMARY | 2024-12-02 17:09 | XMS_ITS | Clinical Summary ---
Author Organization [facility] Address [address] [place] [address] Phone Care Team Providers Care License Issuer Name Role Phone Daron Pardo Primary Care Provider Allergies No known active allergies Medications meclizine (ANTIVERT) 25 mg tablet Take 1 tablet (25 mg total) by mouth 3 (three) times a day if needed for dizziness for up to 10 days. 30 tablet 5 025 ondansetron ODT (ZOFRAN-ODT) 4 mg disintegrating tablet Let 1 tablet dissolve under the tongue three times daily as needed for nausea or vomiting. 10 tablet 5 025 Encounters Date Type Department Care Team Description 11/09/2024 2:41 PM EST - 11/09/2024 7:27 PM EST Emergency [facility] Emergency [address] [place] [address] Adele Rausch DO Dizziness (Primary Dx); Nausea and vomiting, unspecified vomiting type Discharge Disposition: Home or Self Care from Last 3 Months Surgical History Surgery Date Site/Laterality Comments CHOLECYSTECTOMY PROCEDURE: HISTORICAL CHOLECYSTECTOMY OTHER SURGICAL HISTORY PROCEDURE: HISTORY OTHER; COMMENT: install vagal nerve neurostimulator Medical History Medical History Date Comments Epilepsy 12/21/2017 DX:Epilepsy (HCC ) Gallbladder disease 01/18/2016 DX:Gallbladd er disease GERD (gastroesophageal reflux disease) 01/18/2016 DX:GERD (gastroesophageal reflux disease) Hyperlipidemia 12/21/2017 DX:Hyperlipidemi a Microalbuminuria 01/29/2019 DX:Microalbumin uria Type 2 diabetes mellitus wit h renal manifestations (CMS/HCC) 12/21/2017 DX:Type 2 diabetes mellitus with renal manifestations (HCC) Vitamin D deficiency 09/13/2016 DX:Vitamin D deficiency Social History Tobacco Use Types Packs/Day Years Used Date Smoking Tobacco: Never Assessed Sex and Gender Information Value Date Recorded Sex Assigned at Male 11/09/2024 3:44 PM EST Legal Sex Male 4:34 AM EST Gender Identity Male 11/09/2024 3:44 PM EST Sexual Orientation Straight 11/09/2024 3: 44 PM EST Obstetrics History Last Filed Vital Signs Vital Sign Reading Time Taken Comments Blood Pressure 124/81 11/09/2024 4:51 PM EST Pulse 68 11/09/2024 4:51 PM EST Temperature 36.6 ??C (97.9 ??F) 11/09/2024 6:47 PM ES T Respiratory Rate 18 11/09/2024 6:47 PM EST Oxygen Saturation 99% 11/09/2024 4:51 PM EST Inhaled Oxygen Concentration - - Weight 97.5 kg (215 lb) 11/09/2024 2:04 PM EST Height 175.3 cm (5' 9 ) 11/09/2024 2:04 PM EST Body Mass Index 31.75 11/09/2024 2:04 PM EST Plan of Treatment Health Maintenance Due Date Last Done Comments Diabetes: Annual Foot Exam 1989 Diabetes: Annual Retina Eye Exam 1989 Hepatitis B Vaccines (1 of 3 - 19+ 3-dose series) 1998 Cholesterol Screening (Lipid Panel) 08/07/2022 Colorectal Cancer Screening: Colonoscopy 08/07/2022 Depression Screening 08/07/2022 HIV Screening 08/07/2022 Hepatitis C Screening 08/07/2022 Social Influencers of Health Screening 08/07/2022 Diabetes: Annual Urine Albumin-Creatinine Ratio (uACR) 08/17/2022 Diabetes: Blood Sugar Control Test (HGBA1C) 08/17/2022 Diabetes: Annual GFR (Glomerular Filtration Rate) 11/09/2025 11/09/2024 DTaP,Tdap,and Td Vaccines (3 - Td or Tdap) 08/24/2030 08/24/2020, 01/18/2016 Pneumococcal Vaccine: Pediatrics (0 to 5 Years) and At-Risk Patients (6 to 64 Years) Aged Out 08/24/2020, 02/19/2016, 04/13/2010 No longer eligible based on patient's age to complete this topic COVID-19 Vaccine Completed 06/08/2024, 04/2022, 11/06/2020, Additional history exists Influenza Vaccine Completed 06/08/2024, , 06/01/2017, Additional history exists HIB Vaccines Aged Out No longer eligi ble based on patient's age to complete this topic HPV Vaccines Aged Out No longer eligi ble based on patient's age to complete this topic Hepatitis A Vaccines Aged Out No long er eligible based on patient's age to complete this topic IPV Vaccines Aged Out No longer eligi ble based on patient's age to complete this topic MMR Vaccines Aged Out No longer eligi ble based on patient's age to complete this topic Meningococcal ACWY Vaccine Aged Out N o longer eligible based on patient's age to complete this topic Meningococcal B Vacine Aged Out No lo nger eligible based on patient's age to complete this topic RSV Immunization Patients Under 20 months Aged Out No longer eligible based on patient's age to complete this topic Varicella Vaccines Aged Out No longer eligible based on patient's age to complete this topic Procedures Procedure Name Priority Date/Time Associated Diagnosis Comments CT ANGIO HEAD/NECK WO AND/OR W CONTRAST STAT 11/09/2024 4:23 PM EST POCT GLUCOSE BLOOD Routine 11/09/2024 3: 08 PM EST CBC WITH AUTO DIFFERENTIAL STAT 11/09/2024 2:18 PM EST LIPASE STAT 11/09/2024 2:18 PM EST MAGNESIUM STAT 11/09/2024 2:18 PM EST COMPREHENSIVE METABOLIC PANEL STAT 11/09/2024 2:18 PM EST CBC AND DIFFERENTIAL STAT 11/09/2024 2:18 PM EST from Last 3 Months Results * CT Angio Head/Neck wo and/or w Contrast (11/09/2024 4:23 PM EST) Anatomical Region Laterality Modality Head and Neck Computed Tomogra phy 11/09/2024 4:57 PM EST Addenda Addendum by Deon Simmons MD on 11/09/2024 5:09 PM EST ADDENDUM: This report was discussed with JEAN PAUL MORRELL on Nov 09, 2024 17:09:00 EST. This document has been electronically signed by: Keren Little on 11/09/2024 17:09:44 Impressions 11/09/2024 4:57 PM EST Impression: 1. No acute intracranial abnormalities. 2. Unremarkable CTA of the head and neck. This document has been electronically signed by: Deon Simmons MD on 11/09/2024 16:57:56 Narrative 11/09/2024 4:57 PM EST INDICATION: Neuro deficit, acute, stroke suspected Exam: Unenhanced CT brain, and contrast-enhanced CTA head and neck with multiplanar reformats. Comparison: None. Findings: Nonenhanced CT brain: No intracranial mass, midline shift, hydrocephalus, or acute hemorrhage. No CT evidence of acute ischemia. Visualized paranasal sinuses and mastoid air cells normal. Orbits unremarkable. No skull fracture. CTA head: There is good opacification of the bilateral anterior and posterior intracranial arterial circulations. No large vessel occlusion or significant intracranial arterial stenoses appreciated. No definable truncation of flow. No evidence of aneurysm or vascular malformation. No venous thrombosis or enhancing parenchymal lesions. CTA neck: Unremarkable aortic arch. Common and internal carotid arteries are patent bilaterally. Vertebral arteries are patent bilaterally. No occlusion, hemodynamically significant stenoses or evidence of dissection. Visualized pulmonary apices are clear. No neck masses or adenopathy. Osseous structures reveal no destructive osseous lesions. Procedure Note Deon Simmons MD - 11/09/2024 INDICATION: Neuro deficit, acute, stroke suspected Exam: Unenhanced CT brain, and contrast-enhanced CTA head and neck with multiplanar reformats. Comparison: None. Findings: Nonenhanced CT brain: No intracranial mass, midline shift,hydrocephalus, or acute hemorrhage. No CT evidence of acute ischemia. Visualized paranasal sinuses and mastoid air cells normal. Orbits unremarkable. No skull fracture. CTA head: There is good opacification of the bilateral anterior and posterior intracranial arterial circulations. No large vessel occlusionor significant intracranial arterial stenoses appreciated. No definable truncation of flow. No evidence of aneurysm or vascular malformation. No venous thrombosis or enhancing parenchymal lesions. CTA neck: Unremarkable aortic arch. Common and internal carotid arteries are patent bilaterally. Vertebral arteries are patent bilaterally. No occlusion, hemodynamically significant stenoses or evidence ofdissection. Visualized pulmonary apices are clear. No neck masses or adenopathy. Osseous structures reveal no destructive osseous lesions. IMPRESSION: Impression: 1. No acute intracranial abnormalities. 2. Unremarkable CTA of the head and neck. This document has been electronically signed by: Deon Simmons MD on 11/09/2024 16:57:56 Adele Rausch DO IMG CT PROCEDURES Edited Result - Final * (ABNORMAL) POCT Glucose, blood (11/09/2024 3:08 PM EST) Pathologist [facility] Glucose POCT 125(H) 70 - 100 mg/dL 11/09/2024 3:08 PM EST [facility] Blood Capillary blood specimen / Unknown 11/09/2024 3:08 PM EST 11/09/2024 3:09 PM EST us Adele Rausch DO LAB POINT OF CARE TEST DOCKED DEVICE UNSOLICITED RESULTS Final Result [facility] [address] [place] [address], [place] [phone] * (ABNORMAL) CBC auto differential (11/09/2024 2:18 PM EST) WBC 5.0 4.8 - 10.8 K/mcL LAB HEMETOLOGY METHOD 11/09/2024 3:11 PM EST [facility] RBC 4.70 4.50 - 5.50 M/mcL LAB HEMETOLOGY METHOD 11/09/2024 3:11 PM EST [facility] Hemoglobin 14.4 13.5 - 17.5 g/dL LAB HEMETOLOGY METHOD 11/09/2024 3:[address] [facility] Hematocrit 41.1(L) 42.0 - 54.0 % LAB HEMETOLOGY METHOD 11/09/2024 3:[address] [facility] MCV 88.4 79.0 - 98.0 FL LAB HEMETOLOGY METHOD 11/09/2024 3:[address] [facility] MCH 31.0 27.0 - 32.0 pcg LAB HEMETOLOGY METHOD 11/09/2024 3:[address] [facility] MCHC 35.0 32.0 - 37.0 g/dL LAB HEMETOLOGY METHOD 11/09/2024 3:[address] [facility] RDW 13.8 11.0 - 15.0 % LAB HEMETOLOGY METHOD 11/09/2024 3:[address] [facility] Platelets 90(L) 130 - 400 K/mcL LAB HEMETOLOGY METHOD 11/09/2024 3:[address] [facility] Comment:reviewed by slide MPV 11.4(H) 7.0 - 11.0 FL LAB HEMETOLOGY METHOD 11/09/2024 3:[address] [facility] NRBC 0.0 <1.0 % LAB HEMETOLOGY METHOD 11/09/2024 3:[address] [facility] NRBC Absolute 0.00 <0.10 K/mcL LAB HEMETOLOGY METHOD 11/09/2024 3:[address] [facility] Neutrophils Relative 64.9 % LAB HEMETOLOGY METHOD 11/09/2024 3:[address] [facility] Lymphocytes Relative 25.7 % LAB HEMETOLOGY METHOD 11/09/2024 3:[address] [facility] Monocytes Relative 7.6 % LAB HEMETOLOGY METHOD 11/09/2024 3:[address] [facility] Eosinophils Relative 1.2 % LAB HEMETOLOGY METHOD 11/09/2024 3:11 PM EST [facility] Basophils Relative 0.2 % LAB HEMETOLOGY METHOD 11/09/2024 3:[address] [facility] Immature Granulocytes Relative 0.4 % LAB HEMETOLOGY METHOD 11/09/2024 3:[address] [facility] Neutrophils Absolute 3.25 1.50 - 7.00 K/mcL LAB HEMETOLOGY METHOD 11/09/2024 3:[address] [facility] Lymphocytes Absolute 1.29 1.00 - 5.00 K/mcL LAB HEMETOLOGY METHOD 11/09/2024 3:[address] [facility] Monocytes Absolute 0.38 0.20 - 1.00 K/mcL LAB HEMETOLOGY METHOD 11/09/2024 3:11 PM EST [facility] Eosinophils Absolute 0.06 0.00 - 0.50 K/mcL LAB HEMETOLOGY METHOD 11/09/2024 3:[address] [facility] Basophils Absolute 0.01 0.00 - 0.20 K/mcL LAB HEMETOLOGY METHOD 11/09/2024 3:[address] [facility] Immature Granulocytes Absolute 0.02 0.00 - 0.03 K/mcL LAB HEMETOLOGY METHOD 11/09/2024 3:11 PM EST [facility] Blood Venous blood specimen / Unknown Venipuncture / Unknown 11/09/2024 2:18 PM EST 11/09/2024 2:30 PM EST us Adele Rausch DO LAB BLOOD ORDERABLES Jessica l Result [facility] [address] [place] [address], * (ABNORMAL) Magnesium (11/09/2024 2:18 PM EST) [facility] Magnesium 1.6(L) 1.9 - 2.6 mg/dL LAB CHEMISTRY METHOD 11/09/2024 3:08 PM EST [facility] Blood Venous blood specimen / Unknown Venipuncture / Unknown 11/09/2024 2:18 PM EST 11/09/2024 2:30 PM EST Adele Rausch LAB BLOOD ORDERABLES Jessica l Result [facility] [address] [place] [address], [place] [phone] * Lipase (11/09/2024 2:18 PM EST) [facility] Lipase 27 13 - 75 unit/L LAB CHEMISTRY METHOD 11/09/2024 3:08 PM EST [facility] Blood Venous blood specimen / Unknown Venipuncture / Unknown 11/09/2024 2:18 PM EST 11/09/2024 2:30 PM EST Adele Rausch LAB BLOOD ORDERABLES Jessica l Result Performing Organization Address [facility]/ZIP Co de Phone Number [facility] [address] [place] [address], [place] [phone] * (ABNORMAL) Comprehensive metabolic panel (11/09/2024 2:18 PM EST) [facility] Sodium 142 133 - 145 mmol/L LAB CHEMISTRY METHOD 11/09/2024 3:08 PM EST [facility] Potassium 4.0 3.5 - 5.5 mmol/L LAB CHEMISTRY METHOD 11/09/2024 3:08 PM EST [facility] Chloride 108 96 - 110 mmol/L LAB CHEMISTRY METHOD 11/09/2024 3:08 PM EST [facility] CO2 27 21 - 32 mmol/L LAB CHEMISTRY METHOD 11/09/2024 3:[address] [facility] Anion Gap 7 3 - 11 LAB CHEMISTRY METHOD 11/09/2024 3:[address] [facility] Glucose 158(H) 70 - 100 mg/dL LAB CHEMISTRY METHOD 11/09/2024 3:[address] [facility] BUN 12 5 - 25 mg/dL LAB CHEMISTRY METHOD 11/09/2024 3:[address] [facility] Creatinine 0.88 0.70 - 1.30 mg/dL LAB CHEMISTRY METHOD 11/09/2024 3:[address] [facility] eGFR 108 >=60 mL/min/1. 73m2 LAB CHEMISTRY METHOD 11/09/2024 3:[address] [facility] Comment:Calculation based on the??Chronic Kidney Disease Epidemiology Collaboration (CKD-EPI) equation refit??without adjustment for race. BUN/Creatinine Ratio 13.6 LAB CHEMISTRY METHOD 11/09/2024 3:[address] [facility] Calcium 9.1 8.5 - 10.5 mg/dL LAB CHEMISTRY METHOD 11/09/2024 3:[address] [facility] AST (SGOT) 36 10 - 42 unit/L LAB CHEMISTRY METHOD 11/09/2024 3:[address] [facility] ALT (SGPT) 44 10 - 60 unit/L LAB CHEMISTRY METHOD 11/09/2024 3:[address] [facility] Alkaline Phosphatase 41(L) 42 - 121 unit/L LAB CHEMISTRY METHOD 11/09/2024 3:[address] [facility] Total Protein 7.0 6.0 - 8.0 g/dL LAB CHEMISTRY METHOD 11/09/2024 3:[address] [facility] Albumin 3.7 3.2 - 5.0 g/dL LAB CHEMISTRY METHOD 11/09/2024 3:[address] [facility] Total Bilirubin 0.9 0.0 - 1.4 mg/dL LAB CHEMISTRY METHOD 11/09/2024 3:08 PM EST [facility] Blood Venous blood specimen / Unknown Venipuncture / Unknown 11/09/2024 2:18 PM EST 11/09/2024 2:30 PM EST us Adele Rausch DO LAB BLOOD ORDERABLES Jessica l Result [facility] ([facility] [address] [place] [address], from Last [address] [place] [address] [employer] Care Teams License Issuer Relationship Specialty Start Date End Date Daron Pardo PA PCP - General Internal Medicine 02/03/22
== END 2024-12-02 15:58 | disposition home or self-care (01) ==
LOC: HO.HSMS 15:12
PROVIDERS: PCP Physician Assistant; Visit Provider Nurse Practitioner Family
DX: G40.909 Epilepsy, unspecified, not intractable, without status epilepticus (principal); G47.26 Circadian rhythm sleep disorder, shift work type
CPT/HCPCS: 99214

== ENCOUNTER → 2024-12-02 15:11 | Outpatient (BNVA) | payer OTHER, SELFPAY | PROVIDERS: PCP Physician Assistant; Visit Provider Nurse Practitioner Family | DX: G40.909 Epilepsy, unspecified, not intractable, without status epilepticus (principal); G47.26 Circadian rhythm sleep disorder, shift work type | CPT/HCPCS: 99212 ==

== ENCOUNTER 2024-12-12 09:25 | Outpatient (REF) | payer OTHER, SELFPAY ==
[2024-12-12 10:52] LABS: MANUAL DIFF FLAG NO
[2024-12-12 11:19] LABS: Basophils Percent Auto 0.6 % (0-2); Eosinophils Absolute Auto 0.1 X10*3/uL (0.0-0.4); Eosinophils Percent Auto 1.9 % (0-4); Hematocrit 43.5 % (42.0-52.0); Hemoglobin 15.3 g/dl (14.0-18.0); Imm Gran Abs Auto 0.01 X10*3/uL (0.00-0.03); Imm Gran Pct Auto 0.2 % (0.0-0.4); Lymphocytes Absolute Auto 1.9 X10*3/uL (1.2-4.9); Lymphocytes Percent Auto 38.4 % (20-40); Mean Corpuscular HGB Conc 35.2 g/dl (31.0-36.0); Mean Corpuscular Hemoglobin 31.5 pg (27.0-33.0); Mean Corpuscular Volume 89.7 fL (80.0-98.0); Monocytes Absolute Auto 0.4 X10*3/uL (0.1-1.2); Monocytes Percent Auto 8.5 % (2-11); Neutrophils Absolute Auto 2.5 x10*3/uL (2.0-8.3); Neutrophils Percent Auto 50.4 % (45-73); Platelet Count 96 X10*3/uL (160-400); Red Blood Count 4.85 X10*6/uL (4.60-5.80); Red Cell Distribution Width 14.5 % (11.0-16.0); White Blood Count 4.9 X10*3/uL (4.8-10.8)
[2024-12-12 11:57] LABS: Alanine Aminotransferase 41 U/L (0-40); Albumin Level 4.3 g/dL (3.5-5.0); Alkaline Phosphatase 39 U/L (39-117); Anion Gap 14 (12-20); Aspartate Amino Transferase 31 U/L (5-37); Bilirubin Total 1.1 mg/dL (0.0-1.0); Blood Urea Nitrogen 20 mg/dL (9-16); Calcium 9.8 mg/dL (8.4-10.2); Carbon Dioxide 30 mmol/L (22-29); Chloride 105 mmol/L (96-108); Cholesterol 114 mg/dL (<200); Estimated Glomerular Filt Rate > 60; Glucose Fasting 111 mg/dL (60-99); Glucose Random 110 mg/dL (60-115); HDL Cholesterol 49 mg/dL (>40); LDL Cholesterol Calculated 52 mg/dL (<100); Potassium 4.6 mmol/L (3.3-5.1); Sodium 144 mmol/L (135-145); Triglycerides 69 mg/dL (<150); Valproate 66.1 mcg/mL (50.0-100.0)
--- OUTSIDE RECORDS SUMMARY | 2024-12-12 12:38 | XMS_ITS | Clinical Summary ---
Author Organization [facility] Address [address] [place] [address] Phone Care Team Providers Care House Calls Nurse Practitioner Name Role Phone Daron Pardo Primary Care [...] EST - 11/09/2024 7:27 PM EST Emergency [facility] Emergency [address] [place] [address] Adele Rausch DO Dizziness (Primary [...] POCT Glucose, blood (11/09/2024 3:08 PM EST) [facility] Glucose POCT 125(H) 70 - 100 mg/dL 11/09/2024 3:08 PM EST [facility] Blood Capillary blood specimen / Unknown 11/09/2024 3:08 PM EST 11/09/2024 3:09 PM EST Adele Rausch DO LAB POINT OF CARE TEST DOCKED DEVICE UNSOLICITED RESULTS Final Result [facility] [address] [place] [address], * (ABNORMAL) CBC auto differential (11/09/2024 2:18 PM EST) [facility] WBC 5.0 4.8 - 10.8 K/[facility] LAB HEMETOLOGY METHOD 11/09/2024 3:11 PM EST [facility] RBC 4.70 4.50 - 5.50 M/mcL LAB HEMETOLOGY METHOD 11/09/2024 3:11 PM EST [facility] Hemoglobin 14.4 13.5 - 17.5 g/dL LAB HEMETOLOGY METHOD 11/09/2024 3:11 PM [facility] Hematocrit 41.1(L) 42.0 - 54.0 % LAB HEMETOLOGY METHOD 11/09/2024 3:11 PM [facility] MCV 88.4 79.0 - 98.0 FL LAB HEMETOLOGY METHOD 11/09/2024 3:11 PM [facility] MCH 31.0 27.0 - 32.0 pcg LAB HEMETOLOGY METHOD 11/09/2024 3:11 PM [facility] MCHC 35.0 32.0 - 37.0 g/dL LAB HEMETOLOGY METHOD 11/09/2024 3:11 PM [facility] RDW 13.8 11.0 - 15.0 % LAB HEMETOLOGY METHOD 11/09/2024 3:11 PM [facility] Platelets 90(L) 130 - 400 K/mcL LAB HEMETOLOGY METHOD 11/09/2024 3:11 PM [facility] Comment:reviewed by slide MPV 11.4(H) 7.0 - 11.0 FL LAB HEMETOLOGY METHOD 11/09/2024 3:11 PM [facility] NRBC 0.0 <1.0 % LAB HEMETOLOGY METHOD 11/09/2024 3:11 PM [facility] NRBC Absolute 0.00 <0.10 K/mcL LAB HEMETOLOGY METHOD 11/09/2024 3:11 PM [facility] Neutrophils Relative 64.9 % LAB HEMETOLOGY METHOD 11/09/2024 3:11 PM [facility] Lymphocytes Relative 25.7 % LAB HEMETOLOGY METHOD 11/09/2024 3:11 PM [facility] Monocytes Relative 7.6 % LAB HEMETOLOGY METHOD 11/09/2024 3:11 PM [facility] Eosinophils Relative 1.2 % LAB HEMETOLOGY METHOD 11/09/2024 3:11 PM [facility] Basophils Relative 0.2 % LAB HEMETOLOGY METHOD 11/09/2024 3:11 PM [facility] Immature Granulocytes Relative 0.4 % LAB HEMETOLOGY METHOD 11/09/2024 3:11 PM [facility] Neutrophils Absolute 3.25 1.50 - 7.00 K/mcL LAB HEMETOLOGY METHOD 11/09/2024 3:11 PM [facility] Lymphocytes Absolute 1.29 1.00 - 5.00 K/mcL LAB HEMETOLOGY METHOD 11/09/2024 3:11 PM [facility] Monocytes Absolute 0.38 0.20 - 1.00 K/mcL LAB HEMETOLOGY METHOD 11/09/2024 3:11 PM EST [facility] Eosinophils Absolute 0.06 0.00 - 0.50 K/mcL LAB HEMETOLOGY METHOD 11/09/2024 3:11 PM [facility] Basophils Absolute 0.01 0.00 - 0.20 K/mcL LAB HEMETOLOGY METHOD 11/09/2024 3:11 PM [facility] Immature Granulocytes Absolute 0.02 0.00 - 0.03 K/mcL LAB HEMETOLOGY METHOD 11/09/2024 3:11 PM [facility] Blood Venous blood specimen / Unknown Venipuncture / Unknown 11/09/2024 2:18 PM EST 11/09/2024 2:30 PM EST us Adele Rausch DO LAB BLOOD ORDERABLES Jessica l Result [facility] [address] [place] [address], * (ABNORMAL) Magnesium (11/09/2024 2:18 PM EST) [facility] Magnesium 1.6(L) 1.9 - 2.6 mg/dL LAB CHEMISTRY METHOD 11/09/2024 3:08 PM EST [facility] Blood Venous blood specimen / Unknown Venipuncture / Unknown 11/09/2024 2:18 PM EST 11/09/2024 2:30 PM EST [facility] Guicho Rausch LAB BLOOD ORDERABLES Jessica l Result [facility] [address] [place] [address], [place] [phone] * Lipase (11/09/2024 2:18 PM EST) [facility] Lipase 27 13 - 75 unit/L LAB CHEMISTRY METHOD 11/09/2024 3:08 PM EST [facility] Blood Venous blood specimen / Unknown Venipuncture / Unknown 11/09/2024 2:18 PM EST 11/09/2024 2:30 PM EST [facility] Guicho Rausch LAB BLOOD ORDERABLES Jessica l Result Performing Organization Address City/[facility]/ZIP Co de Phone Number [facility] [address] [place] [address], [place] [phone] * (ABNORMAL) Comprehensive metabolic panel (11/09/2024 2:18 PM EST) [facility] Sodium 142 133 - 145 mmol/L LAB CHEMISTRY METHOD 11/09/2024 3:08 PM EST [facility] Potassium 4.0 3.5 - 5.5 mmol/L LAB CHEMISTRY METHOD 11/09/2024 3:08 PM EST [facility] Chloride 108 96 - 110 mmol/L LAB CHEMISTRY METHOD 11/09/2024 3:08 PM EST [facility] CO2 27 21 - 32 mmol/L LAB CHEMISTRY METHOD 11/09/2024 3:08 PM [facility] Anion Gap 7 3 - 11 LAB CHEMISTRY METHOD 11/09/2024 3:08 PM [facility] Glucose 158(H) 70 - 100 mg/dL LAB CHEMISTRY METHOD 11/09/2024 3:08 PM [facility] BUN 12 5 - 25 mg/dL LAB CHEMISTRY METHOD 11/09/2024 3:08 PM [facility] Creatinine 0.88 0.70 - 1.30 mg/dL LAB CHEMISTRY METHOD 11/09/2024 3:08 PM [facility] eGFR 108 >=60 mL/min/1. 73m2 LAB CHEMISTRY METHOD 11/09/2024 3:08 PM [facility] Comment:Calculation based on the??Chronic Kidney Disease Epidemiology Collaboration (CKD-EPI) equation refit??without adjustment for race. BUN/Creatinine Ratio 13.6 LAB CHEMISTRY METHOD 11/09/2024 3:08 PM [facility] Calcium 9.1 8.5 - 10.5 mg/dL LAB CHEMISTRY METHOD 11/09/2024 3:08 PM [facility] AST (SGOT) 36 10 - 42 unit/L LAB CHEMISTRY METHOD 11/09/2024 3:08 PM [facility] ALT (SGPT) 44 10 - 60 unit/L LAB CHEMISTRY METHOD 11/09/2024 3:08 PM [facility] Alkaline Phosphatase 41(L) 42 - 121 unit/L LAB CHEMISTRY METHOD 11/09/2024 3:08 PM [facility] Total Protein 7.0 6.0 - 8.0 g/dL LAB CHEMISTRY METHOD 11/09/2024 3:08 PM [facility] Albumin 3.7 3.2 - 5.0 g/dL LAB CHEMISTRY METHOD 11/09/2024 3:08 PM [facility] Total Bilirubin 0.9 0.0 - 1.4 mg/dL LAB CHEMISTRY METHOD 11/09/2024 3:08 PM EST [facility] Blood Venous blood specimen / Unknown Venipuncture / Unknown 11/09/2024 2:18 PM EST 11/09/2024 2:30 PM EST us Adele Rausch DO LAB BLOOD ORDERABLES Jessica l Result [facility] [address] [place] [address], [place] [phone] from Last [address] [place] [address] [employer] Care Teams House Calls Nurse Practitioner Relationship Specialty Start Date End Date Daron Pardo PA PCP - General Internal Medicine 02/03/22
[2024-12-16 15:49] LABS: Lamotrigine Lamictal 15.7 mcg/mL (2.5-15.0)
== END 2024-12-12 09:26 | disposition home or self-care (01) ==
LOC: HO.LAB 09:25
PROVIDERS: Absent Provider Nurse Practitioner Family; PCP Physician Assistant; Visit Provider Physician Assistant
DX: E11.9 Type 2 diabetes mellitus without complications (principal); E78.00 Pure hypercholesterolemia, unspecified; G40.909 Epilepsy, unspecified, not intractable, without status epilepticus; G47.26 Circadian rhythm sleep disorder, shift work type
CPT/HCPCS: 36415; 80053; 80061; 80164; 80175; 85025; 85027; 99212

== ENCOUNTER 2024-12-12 09:25 | Outpatient (AMB) | payer OTHER, SELFPAY ==
[2024-12-12 09:52] VITALS: BP 118/86; PULSE 83; TEMP 36.3; O2SAT 96; BMI 26.8
--- NOTE | 2024-12-12 09:52 | MHC.PC.OV ---
Vital Signs 12/12/24 09:52 Height 5 ft 9 in Weight 181 lb 6 oz BMI 26.8 BP 118/86 Blood Pressure Location Lt brachial Position Sitting Pulse 83 Pulse Source Pulse Oximeter Temp 97.3 F Temp Source Temporal Artery Scan Pulse Oximetry (%) 96 Oxygen Delivery Method Room Air Intake Visit Reasons: dm Director Of Speech Pathology Required: No Accompanied by: Self / Same As Patient Allergies dulaglutide [From [facility]] Adverse Reaction (Intermediate, Verified 12/12/24 10:22) GI upset metformin Adverse Reaction (Intermediate, Verified 12/12/24 10:22) Diarrhea Medication List - Last Reconciled 12/12/24 by Daron Pardo PA-C atorvastatin 80 mg PO BEDTIME blood sugar diagnostic (FreeStyle Lite Strips) Once per day as needed cholecalciferol (vitamin D3) 50 mcg PO DAILY diclofenac sodium 1% 2 grams topical QID 30 days divalproex (Depakote) 1,000 mg (2 x 500 mg) PO BID 90 days lamotrigine (Lamictal) 100 mg PO BID 90 days linaclotide (Linzess) 145 mcg PO QAM linagliptin (Tradjenta) 5 mg PO DAILY 90 days [id number]-tljpvwfz-drzklpj 24,000-76,000 -120,000 unit (Creon) 2 caps PO BID 30 days omeprazole 40 mg PO DAILY semaglutide (Ozempic) 0.5 mg (0.736 mL) subcut QWEEK 4 weeks Tobacco use date assessed: 09/10/24 Dental Screening Dental Screen Date: 09/10/24 HPI dm HPI Details Patient is a 44 year male here today for follow-up visit.? Patient has a past medical history significant for type 2 diabetes hyperlipidemia, history of epilepsy. Epilepsy: Followed by Neurology,? He has not had a seizure many years and continues on both divalproex and lamotrigine. .. Type 2 diabetes:? Patient has discontinue Tradjenta and pioglitazone. Continues on Ozempic 0.5 mg and sugars have been much better. Today's A1c of 5.7 from 7.5. Has lost significant amount of weight since last office visit . . Colitis/ abdominal discomfort: Has pretty much resolved with the addition of omeprazole on Creon and LP 1. Laboratory Tests 05/27/24 05/27/24 09/10/24 07:34 Unknown 10:10 Hgb A1c (Clinic) 8.0 H Hemoglobin A1c % 9.4 H LDL Cholesterol, C alc 44 PSA Screen Urine Microalbumin 80.0 09/10/24 09/10/24 11:02 11:05 Hgb A1c (Clinic) Hemoglobin A1c % 7.6 H LDL Cholesterol, C alc PSA Screen 0.42 Urine Microalbumin 18.0 PFSH Medical History Abdominal discomfort Dyspepsia Colitis Left wrist tendinitis Seizures Colitis Diabetes Elevated cholesterol Infection of nose Cellulitis Family history of coronary arteriosclerosis Surgical History H/O colonoscopy History of cholecystectomy Family History Mother No problems noted. Father Prostate cancer Maternal Uncle CAD (coronary artery disease) Paternal Uncle Bone cancer Paternal Aunt Ovarian cancer Paternal Aunt Thyroid cancer Paternal Aunt Breast cancer Other Mental health disorder Social History Housing: House Alcohol intake: current Alcohol intake frequency: holidays/special occasions only Patient Tobacco Use Status: Never used Tobacco e-Cigarette/Vaping Use: Never Used Second Hand Smoke Exposure: Yes service: No Current occupational status: employed Current occupation: [employer] Cognitive needs: No Hearing needs: No Vision needs: No Questionnaire Thrive Questionnaire Date Thrive assessed: 09/10/24 AUDIT C Alcohol Use Questionnaire (AUDIT-C) 3. How often do you have six or more drinks on one occasion?: Never Total Score: 0 RICHARD-7 AMB Questionnaire RICHARD-7 Date RICHARD - 7 assessed: 09/10/24 Source: Developed by Drs. Freedom Trammell, Iwona Curtis, Ken Joy and colleagues, with an educational deisi from [employer]. Review of Systems Const Denies headache(s) Eyes Denies loss of vision ENT Denies vertigo, Denies dizziness, Denies headache(s) and Denies sore throat Card Denies chest pain, Denies leg edema and Denies lightheadedness Resp Denies cough, Denies hemoptysis and Denies wheezing GI Denies abdominal pain, Denies melena, Denies constipation, Denies diarrhea and Denies vomiting Denies dysuria, Denies urinary frequency and Denies urinary urgency Musc Denies arthralgias, Denies joint swelling, Denies numbness and Denies tingling Neuro Denies Abnormal speech present, Denies behavioral changes, Denies vertigo, Denies dizziness, Denies headache(s), Denies loss of vision, Denies memory loss, Denies numbness and Denies tingling Psych Denies anxiety, Denies behavioral changes, Denies depression, Denies memory loss and Denies panic attacks Luis F/Lymph Denies easy bleeding and Denies easy bruising Aller/Immun Denies wheezing Physical exam (Primary Care) Vital Signs: Last Vital Signs Temp 97.3 F 12/12/24 09:52 Pulse 83 12/12/24 09:52 BP 118/86 12/12/24 09:52 Pulse Ox 96 12/12/24 09:52 Oxygen Delivery Method Room Air 12/12/24 09:52 BMI result Body Mass Index 26.8 Tobacco/Smoking Status: Tobacco use Status Tobacco use date assessed 09/10/24 12/12/24 09:55 Patient Tobacco Use Status Never used Tobacco 12/12/24 09:55 e-Cigarette/Vaping Use Never Used 12/12/24 09:55 Thrive Assessment: Date of Thrive Assessment Date Thrive assessed 09/10/24 12/12/24 09:55 Const General: healthy appearing, no acute distress, alert and awake Nutritional Appearance: well nourished Orientation/consciousness: oriented to person, oriented to place and oriented to time HENMT Ears: TM's normal bilaterally General nose exam: Normal nasal mucous membranes and turbinates present Eyes Conjunctivae: conjunctivae normal Sclerae: sclerae normal Pupils: Equal, round and reactive pupils present Neck Neck: Yes no lymphadenopathy and Yes no JVD Thyroid: Thyroid normal Carotids: no bruits Resp Effort & Inspection: normal respiratory effort and not tachypneic Auscultation: no crackles, no rales, no rhonchi and no wheezes Cardio Rate: regular rate Rhythm: regular rhythm Heart sounds: no murmurs and normal S1 and S2 GI Palpation (GI): Soft to palpation, nontender, no hepatomegaly and no splenomegaly Auscultation: normal bowel sounds Skin General skin exam: no rashes or lesions noted and dry skin Neuro General: oriented to person, oriented to place and oriented to time Cranial nerves: Yes Equal, round and reactive pupils present Speech: No Abnormal speech present Gait exam (Neuro): Normal gait present Motor exam (neuro): no tremor noted Extrem Right upper extremity: full ROM Left upper extremity: full ROM Right lower extremity: full ROM; no edema Left lower extremity: full ROM; no edema Psych Mental Status: mental status grossly normal Speech and movement: Normal speech and movement present Affect: normal affect Attitude: cooperative Thought process: Normal thought process present Coding Level of Care Code Est Pt Level 4 (37275) Diagnoses Type 2 diabetes mellitus without complication, without long-term current use of insulin E11.9 Diabetes mellitus fci insulin use: without termite control technician use Diabetes mellitus complication status: without complication Pure hypercholesterolemia E78.00 Hyperlipidemia type: pure hypercholesterolemia Nonintractable epilepsy without status epilepticus, unspecified epilepsy type G40.909 Epilepsy type: unspecified Intractability: not intractable Status epilepticus: without status epilepticus Assessment & Plan Assessment & Plan (1) DMII (diabetes mellitus, type 2): Code(s): E11.9 - Type 2 diabetes mellitus without complications Category: Medical Qualifiers: Diabetes mellitus fci insulin use: without termite control technician use Diabetes mellitus complication status: without complication Qualified Code(s): E11.9 - Type 2 diabetes mellitus without complications Plan: Patient's type 2 diabetes now well controlled. Today's A1c of 5.7 from 7.4. Has been on Ozempic 0.5 mg weekly which has been able to capture some glycemic control. He is now off a pioglitazone and Tradjenta.. . Goal A1c is to be below 7.0 (2) HLD (hyperlipidemia): Code(s): E78.5 - Hyperlipidemia, unspecified Category: Medical Qualifiers: Hyperlipidemia type: pure hypercholesterolemia Qualified Code(s): E78.00 - Pure hypercholesterolemia, unspecified Plan: Patient continues with high-dose statin therapy with good effect. Most recent lipid panel showing excellent control of his total cholesterol and LDL. Goal LDL is to remain below 100 (3) Epilepsy: Comment: last seizure > 6 yrs ago. h/o VPN. Code(s): G40.909 - Epilepsy, unspecified, not intractable, without status epilepticus Category: Medical Qualifiers: Epilepsy type: unspecified Intractability: not intractable Status epilepticus: without status epilepticus Qualified Code(s): G40.909 - Epilepsy, unspecified, not intractable, without status epilepticus Plan: Continues without any seizure activity for quite some time now. Current antiepileptic medication has been very effective. Orders: Orders Comprehensive [place]. Panel Fast Today E11.9 - Type 2 diabetes mellitus without complications AMB Hemoglobin A1c Today E11.9 - Type 2 diabetes mellitus without complications Complete Blood Count no Diff Today D69.6 - Thrombocytopenia, unspecified Lipid Panel Today E78.00 - Pure hypercholesterolemia, unspecified Complete Blood Count Auto Diff Today E11.9 - Type 2 diabetes mellitus without complications
--- OUTSIDE RECORDS SUMMARY | 2024-12-12 10:19 | XMS_ITS | Clinical Summary ---
Author Organization [facility] Address [address] [place] [address] Phone Care Team Providers Care Rice Drier Operator Name Role Phone Daron Pardo Primary Care Provider [phone] Allergies No known active allergies Medications meclizine [...] EST - 11/09/2024 7:27 PM EST Emergency [facility] Emergency [address] [place] [address] Adele Rausch DO Dizziness (Primary Dx); Nausea and vomiting, unspecified vomiting type Discharge Disposition: Home or Self Care from Last 3 Months Surgical History Surgery Date Site/Laterality Comments CHOLECYSTECTOMY PROCEDURE: HISTORICAL CHOLECYSTECTOMY OTHER SURGICAL HISTORY PROCEDURE: HISTORY OTHER; COMMENT: install vagal nerve neurostimulator Medical History Medical History Date Comments Epilepsy (CMS/HCC V24, CMS/HCC V28) 12/21/2017 DX:Epilepsy (HCC) Gallbladder disease 01/18/2016 DX:Gallbladd er disease GERD (gastroesophageal reflux disease) 01/18/2016 DX:GERD (gastroesophageal reflux disease) Hyperlipidemia 12/21/2017 DX:Hyperlipidemi a Microalbuminuria 01/29/2019 DX:Microalbumin uria Type 2 diabetes mellitus wit h renal manifestations (CMS/HCC V24, CMS/HCC V28) 12/21/2017 DX:Type 2 diabetes mellitus with renal [...] age to complete this topic Meningococcal B Vaccine Aged Out No l onger eligible based on patient's age to complete [...] This report was discussed with JEAN PAUL OLMOS PORSCHE on Nov 09, 2024 17:09:00 EST. This [...] POCT Glucose, blood (11/09/2024 3:08 PM EST) [facility] Glucose POCT 125(H) 70 - 100 mg/dL 11/09/2024 3:08 PM EST [facility] Blood Capillary blood specimen / Unknown 11/09/2024 3:08 PM EST 11/09/2024 3:09 PM EST Adele Rausch DO LAB POINT OF CARE TEST DOCKED DEVICE UNSOLICITED RESULTS Final Result [facility] [address] [place] [address], * (ABNORMAL) CBC auto differential (11/09/2024 2:18 PM EST) [facility] WBC 5.0 4.8 - 10.8 K/[facility] LAB HEMETOLOGY METHOD 11/09/2024 3:11 PM EST [facility] RBC 4.70 4.50 - 5.50 M/mcL LAB HEMETOLOGY METHOD 11/09/2024 3:11 PM EST [facility] Hemoglobin 14.4 13.5 - 17.5 g/dL LAB HEMETOLOGY METHOD 11/09/2024 3:11 PM [facility] Hematocrit 41.1(L) 42.0 - 54.0 % LAB HEMETOLOGY METHOD 11/09/2024 3:11 PM [facility] MCV 88.4 79.0 - 98.0 FL LAB HEMETOLOGY METHOD 11/09/2024 3:11 PM [facility] MCH 31.0 27.0 - 32.0 pcg LAB HEMETOLOGY METHOD 11/09/2024 3:11 PM [facility] MCHC 35.0 32.0 - 37.0 g/dL LAB HEMETOLOGY METHOD 11/09/2024 3:11 PM [facility] RDW 13.8 11.0 - 15.0 % LAB HEMETOLOGY METHOD 11/09/2024 3:11 PM [facility] Platelets 90(L) 130 - 400 K/mcL LAB HEMETOLOGY METHOD 11/09/2024 3:11 PM [facility] Comment:reviewed by slide MPV 11.4(H) 7.0 - 11.0 FL LAB HEMETOLOGY METHOD 11/09/2024 3:11 PM [facility] NRBC 0.0 <1.0 % LAB HEMETOLOGY METHOD 11/09/2024 3:11 PM [facility] NRBC Absolute 0.00 <0.10 K/mcL LAB HEMETOLOGY METHOD 11/09/2024 3:11 PM [facility] Neutrophils Relative 64.9 % LAB HEMETOLOGY METHOD 11/09/2024 3:11 PM [facility] Lymphocytes Relative 25.7 % LAB HEMETOLOGY METHOD 11/09/2024 3:11 PM [facility] Monocytes Relative 7.6 % LAB HEMETOLOGY METHOD 11/09/2024 3:11 PM [facility] Eosinophils Relative 1.2 % LAB HEMETOLOGY METHOD 11/09/2024 3:11 PM [facility] Basophils Relative 0.2 % LAB HEMETOLOGY METHOD 11/09/2024 3:11 PM [facility] Immature Granulocytes Relative 0.4 % LAB HEMETOLOGY METHOD 11/09/2024 3:11 PM [facility] Neutrophils Absolute 3.25 1.50 - 7.00 K/mcL LAB HEMETOLOGY METHOD 11/09/2024 3:11 PM [facility] Lymphocytes Absolute 1.29 1.00 - 5.00 K/mcL LAB HEMETOLOGY METHOD 11/09/2024 3:11 PM [facility] Monocytes Absolute 0.38 0.20 - 1.00 K/mcL LAB HEMETOLOGY METHOD 11/09/2024 3:11 PM EST [facility] Eosinophils Absolute 0.06 0.00 - 0.50 K/mcL LAB HEMETOLOGY METHOD 11/09/2024 3:11 PM [facility] Basophils Absolute 0.01 0.00 - 0.20 K/mcL LAB HEMETOLOGY METHOD 11/09/2024 3:11 PM [facility] Immature Granulocytes Absolute 0.02 0.00 - 0.03 K/mcL LAB HEMETOLOGY METHOD 11/09/2024 3:11 PM [facility] Blood Venous blood specimen / Unknown Venipuncture / Unknown 11/09/2024 2:18 PM EST 11/09/2024 2:30 PM EST us Adele Rausch DO LAB BLOOD ORDERABLES Jessica l Result [facility] [address] [place] [address], * (ABNORMAL) Magnesium (11/09/2024 2:18 PM EST) [facility] Magnesium 1.6(L) 1.9 - 2.6 mg/dL LAB CHEMISTRY METHOD 11/09/2024 3:08 PM EST [facility] Blood Venous blood specimen / Unknown Venipuncture / Unknown 11/09/2024 2:18 PM EST 11/09/2024 2:30 PM EST [facility] Guicho Rausch LAB BLOOD ORDERABLES Jessica l Result [facility] [address] [place] [address], [place] [phone] * Lipase (11/09/2024 2:18 PM EST) [facility] Lipase 27 13 - 75 unit/L LAB CHEMISTRY METHOD 11/09/2024 3:08 PM EST [facility] Blood Venous blood specimen / Unknown Venipuncture / Unknown 11/09/2024 2:18 PM EST 11/09/2024 2:30 PM EST [facility] Guicho Rausch LAB BLOOD ORDERABLES Jessica l Result Performing Organization Address City/[facility]/ZIP Co de Phone Number [facility] [address] [place] [address], [place] [phone] * (ABNORMAL) Comprehensive metabolic panel (11/09/2024 2:18 PM EST) [facility] Sodium 142 133 - 145 mmol/L LAB CHEMISTRY METHOD 11/09/2024 3:08 PM EST [facility] Potassium 4.0 3.5 - 5.5 mmol/L LAB CHEMISTRY METHOD 11/09/2024 3:08 PM EST [facility] Chloride 108 96 - 110 mmol/L LAB CHEMISTRY METHOD 11/09/2024 3:08 PM EST [facility] CO2 27 21 - 32 mmol/L LAB CHEMISTRY METHOD 11/09/2024 3:08 PM [facility] Anion Gap 7 3 - 11 LAB CHEMISTRY METHOD 11/09/2024 3:08 PM [facility] Glucose 158(H) 70 - 100 mg/dL LAB CHEMISTRY METHOD 11/09/2024 3:08 PM [facility] BUN 12 5 - 25 mg/dL LAB CHEMISTRY METHOD 11/09/2024 3:08 PM [facility] Creatinine 0.88 0.70 - 1.30 mg/dL LAB CHEMISTRY METHOD 11/09/2024 3:08 PM [facility] eGFR 108 >=60 mL/min/1. 73m2 LAB CHEMISTRY METHOD 11/09/2024 3:08 PM [facility] Comment:Calculation based on the??Chronic Kidney Disease Epidemiology Collaboration (CKD-EPI) equation refit??without adjustment for race. BUN/Creatinine Ratio 13.6 LAB CHEMISTRY METHOD 11/09/2024 3:08 PM [facility] Calcium 9.1 8.5 - 10.5 mg/dL LAB CHEMISTRY METHOD 11/09/2024 3:08 PM [facility] AST (SGOT) 36 10 - 42 unit/L LAB CHEMISTRY METHOD 11/09/2024 3:08 PM [facility] ALT (SGPT) 44 10 - 60 unit/L LAB CHEMISTRY METHOD 11/09/2024 3:08 PM [facility] Alkaline Phosphatase 41(L) 42 - 121 unit/L LAB CHEMISTRY METHOD 11/09/2024 3:08 PM [facility] Total Protein 7.0 6.0 - 8.0 g/dL LAB CHEMISTRY METHOD 11/09/2024 3:08 PM [facility] Albumin 3.7 3.2 - 5.0 g/dL LAB CHEMISTRY METHOD 11/09/2024 3:08 PM [facility] Total Bilirubin 0.9 0.0 - 1.4 mg/dL LAB CHEMISTRY METHOD 11/09/2024 3:08 PM EST [facility] Blood Venous blood specimen / Unknown Venipuncture / Unknown 11/09/2024 2:18 PM EST 11/09/2024 2:30 PM EST us Adele Rausch DO LAB BLOOD ORDERABLES Jessica l Result [facility] [address] [place] [address], [place] [phone] from Last [address] [address] [employer] Care Teams Rice Drier Operator Relationship Specialty Start Date End Date Daron Pardo PA PCP - General Internal Medicine 02/03/22
== END 2024-12-12 10:36 | disposition home or self-care (01) ==
LOC: HO.HMCH 09:25
PROVIDERS: PCP Physician Assistant; Visit Provider Physician Assistant
DX: E11.9 Type 2 diabetes mellitus without complications (principal); E78.00 Pure hypercholesterolemia, unspecified; G40.909 Epilepsy, unspecified, not intractable, without status epilepticus

== ENCOUNTER 2025-06-12 09:22 | Outpatient (REF) | payer OTHER, SELFPAY ==
[2025-06-12 12:08] LABS: Hematocrit 42.5 % (42.0-52.0); Hemoglobin 14.7 g/dl (14.0-18.0); Mean Corpuscular HGB Conc 34.6 g/dl (31.0-36.0); Mean Corpuscular Hemoglobin 31.5 pg (27.0-33.0); Mean Corpuscular Volume 91.0 fL (80.0-98.0); NRBC Abs Auto 0.000 X10*3/uL (0.0-0.012); NRBC Pct Auto 0.0 /100WBC (0.0-0.2); Platelet Count 91 X10*3/uL (160-400); Red Blood Count 4.67 X10*6/uL (4.60-5.80); White Blood Count 4.5 X10*3/uL (4.8-10.8)
[2025-06-12 12:25] LABS: Alanine Aminotransferase 42 U/L (0-40); Albumin Level 4.8 g/dL (3.5-5.0); Alkaline Phosphatase 46 U/L (39-117); Anion Gap 10 (12-20); Aspartate Amino Transferase 36 U/L (5-37); Blood Urea Nitrogen 16 mg/dL (9-16); Calcium 9.1 mg/dL (8.4-10.2); Carbon Dioxide 32 mmol/L (22-29); Chloride 106 mmol/L (96-108); Cholesterol 124 mg/dL (<200); Estimated Glomerular Filt Rate > 60; HDL Cholesterol 47 mg/dL (>40); Magnesium 2.0 mg/dL (1.6-2.6); Potassium 4.3 mmol/L (3.3-5.1); Sodium 144 mmol/L (135-145); Total Protein 7.3 g/dL (6.5-8.0); Triglycerides 78 mg/dL (<150)
[2025-06-12 12:48] LABS: Folate 10.7 ng/mL (> or = 4.0); Vitamin B12 824 pg/mL (200-900)
[2025-06-13 09:34] LABS: Lyme Abs Screen <0.90 index
[2025-06-18 23:10] LABS: Lamotrigine Lamictal 15.2 mcg/mL (2.5-15.0)
== END 2025-06-12 09:23 | disposition home or self-care (01) ==
LOC: HO.LAB 09:22
PROVIDERS: PCP Physician Assistant; Visit Provider Physician Assistant
DX: Z23 Encounter for immunization (principal); E78.00 Pure hypercholesterolemia, unspecified; E11.9 Type 2 diabetes mellitus without complications; E53.8 Deficiency of other specified B group vitamins; G40.909 Epilepsy, unspecified, not intractable, without status epilepticus; G47.26 Circadian rhythm sleep disorder, shift work type; R42 Dizziness and giddiness; R03.0 Elevated blood-pressure reading, without diagnosis of hypertension; Z79.899 Other long term (current) drug therapy
CPT/HCPCS: 36415; 80053; 80061; 80164; 80175; 82607; 82746; 83036; 83735; 84630; 85027; 86617; 86618; 90471; 90656; 96127; 99212

== ENCOUNTER 2025-06-12 09:22 | Outpatient (AMB) | payer MEDICAID, SELFPAY ==
[2025-06-12 09:32] VITALS: BP 134/90; PULSE 85; TEMP 36.2; O2SAT 97; BMI 28.4
--- NOTE | 2025-06-12 09:32 | A.OFFPC_ITS ---
Vital Signs 06/12/25 09:32 06/12/25 10:07 Height 5 ft 9 in Weight 192 lb BMI 28.4 BP 134/90 H 140/90 H Blood Pressure Location Lt brachial Position Sitting Pulse 85 Pulse Source Pulse Oximeter Temp 97.1 F Temp Source Temporal Artery Scan Pulse Oximetry (%) 97 Oxygen Delivery Method Room Air Intake Visit Reasons: 6 month f/u Accompanied by: Spouse Allergies dulaglutide (From [facility]) Adverse Reaction (Intermediate, Verified 06/12/25 09:49) GI upset metformin Adverse Reaction (Intermediate, Verified 06/12/25 09:49) Diarrhea Medication List - Last Reconciled 06/12/25 by Daron Pardo PA-C atorvastatin 80 mg PO BEDTIME blood sugar diagnostic (FreeStyle Lite Strips) Once per day as needed cholecalciferol (vitamin D3) 50 mcg PO DAILY diclofenac sodium 1% 2 grams topical QID 30 days divalproex (Depakote) 1,000 mg (2 x 500 mg) PO BID 90 days lamotrigine (Lamictal) 100 mg PO BID 90 days omeprazole 40 mg PO DAILY semaglutide (Ozempic) 0.5 mg (0.736 mL) subcut QWEEK 4 weeks Tobacco use date assessed: 06/12/25 Dental Screening Dental Screen Date: 06/12/25 Did you have a dental visit in the last 12 months?: Yes Did you have a dental problem in the last 6 months where you did not have access to dental care?: No Was dental information given to patient?: Patient has dentist HPI 6 month f/u HPI Details Patient is a 45 year male here today for follow-up visit.? Patient has a past medical history significant for type 2 diabetes hyperlipidemia, history of epilepsy. ? Dizziness: These episodes have been occurring for approximately a year, with increasing frequency recently. The dizziness is often accompanied by nausea and vomiting, and has led to multiple emergency room visits where no definitive cause was identified on CTA head and neck.. He was found to have low magnesium during this time . The patient has a history of seizure disorder and is currently on medications including Depakote and Lamictal. There is a concern that medication levels may be contributing to the symptoms, as previous tests showed slightly elevated Depakote levels. The patient also has a history of diabetes mellitus, which is currently well-controlled with an A1c of 6.0, and is managed with Ozempic. Epilepsy: Followed by Neurology,? He has not had a seizure many years and continues on both divalproex and lamotrigine. He reports he will be seeing his neurologist today .. Type 2 diabetes:? Patient has discontinue Tradjenta and pioglitazone. Continues on Ozempic 0.5 mg and sugars have been much better. Today's A1c of 6.0. Has lost significant amount of weight since last office visit . . Colitis/ abdominal discomfort: Has p retty much resolved with the addition of omeprazole on Creon and LP 1. Laboratory Tests 09/10/24 09/10/24 12/12/24 10:10 11:05 10:50 Hgb 15.3 Hgb A1c (Clinic) 8.0 H Hemoglobin A1c % 7.6 H LDL Cholesterol, C alc 52 06/12/25 09:37 Hgb Hgb A1c (Clinic) 6.0 Hemoglobin A1c % LDL Cholesterol, C alc PFS Medical History (Reviewed 06/12/25 @ 09:35 by Lori Alcala [facility]) Abdominal discomfort Dyspepsia Colitis Left wrist tendinitis Seizures Colitis Diabetes Elevated cholesterol Infection of nose Cellulitis Family history of coronary arteriosclerosis Surgical History H/O colonoscopy History of cholecystectomy Family History Mother No problems noted. Father Prostate cancer Maternal Uncle CAD (coronary artery disease) Paternal Uncle Bone cancer Paternal Aunt Ovarian cancer Paternal Aunt Thyroid cancer Paternal Aunt Breast cancer Other Mental health disorder Social History Housing: House Alcohol intake: current Alcohol intake frequency: holidays/special occasions only Patient Tobacco Use Status: Never used Tobacco e-Cigarette/Vaping Use: Never Used Second Hand Smoke Exposure: Yes service: No Current occupational status: employed Current occupation: [employer] Cognitive needs: No Hearing needs: No Vision needs: No Questionnaire PHQ-9 Over the last 2 weeks, how often have you been bothered by any of the following problems? 1. Little interest or pleasure in doing things: not at all 2. Feeling down, depressed, or hopeless: not at all 3. Trouble falling or staying asleep, or sleeping too much: not at all 4. Feeling tired or having little energy: several days 5. Poor appetite or overeating: not at all 6. Feeling bad about yourself - or that you are a failure or have let yourself or your family down: not at all 7. Trouble concentrating on things, such as reading the newspaper or watching television: not at all 8. Moving or speaking so slowly that other people could have noticed. Or the opposite - being so fidgety or restless that you have been moving around a lot more than usual: not at all 9. Thoughts that you would be better off or of hurting yourself in some way: not at all Total score: 1 Depression Screening Interpretation: Negative Depression Screening Done: Yes 85317 - PHQ-9 Billing: Yes Source: Developed by Drs. Freedom Trammell, Iwona Curtis, Ken Joy and colleagues, with an educational deisi from [employer] Thrive Questionnaire Date Thrive assessed: 09/10/24 I am a: Patient What is your living situation today?: I have a steady place to live Within the past 12 months, did the food you bought not last and you didn't have the money to get more?: Never true Within the past 12 months, did you worry whether your food would run out before you got money to buy more?: Never true Do you have trouble paying for medicines?: No Do you have trouble getting transportation to medical appointments?: No Do you have trouble paying your heating and electricity bill?: No Do you have trouble taking care of your child, family member or friend?: No Do you have trouble with day-to-day activities such as bathing, preparing meals, shopping, managing finances, etc.?: No Are you currently unemployed and looking for a job?: No Are you interested in more education?: No Please select the resources that you would like help with: None Currently or been in a relationship where the following occur: No concerns reported THRIVE Score: 0 AUDIT C Alcohol Use Questionnaire (AUDIT-C) 1. How often do you have a drink containing alcohol?: Monthly or less 2. How many drinks containing alcohol do you have on a typical day when you are drinking?: 1 or 2 3. How often do you have six or more drinks on one occasion?: Never Total Score: 1 RICHARD-7 AMB Questionnaire RICHARD-7 Date RICHARD - 7 assessed: 09/10/24 Feeling nervous, anxious, or on edge: 0 = Not at all Not being able to stop or control worryin = Not at all Worrying too much about different things: 0 = Not at all Trouble relaxin = Not at all Being so restless that it is hard to sit still: 0 = Not at all Becoming easily annoyed or irritable: 0 = Not at all Feeling afraid as if something awful might happen: 0 = Not at all Total RICHARD-7 score (0-4 normal; 5-9 mild; 10-14 moderate; 15-21 severe): 0 Source: Developed by Drs. Freedom Trammell, Iwona Curtis, Ken Joy and colleagues, with an educational deisi from [employer] Review of Systems Const Denies headache(s) Eyes Denies loss of vision ENT Denies vertigo, Reports dizziness, Denies headache(s) and Denies sore throat Card Denies chest pain, Denies leg edema and Denies lightheadedness Resp Denies cough, Denies hemoptysis and Denies wheezing GI Denies abdominal pain, Denies melena, Denies constipation, Denies diarrhea and Denies vomiting Denies dysuria, Denies urinary frequency and Denies urinary urgency Musc Denies arthralgias, Denies joint swelling, Denies numbness and Denies tingling Neuro Denies Abnormal speech present, Denies behavioral changes, Denies vertigo, Reports dizziness, Denies headache(s), Denies loss of vision, Denies memory loss, Denies numbness and Denies tingling Psych Denies anxiety, Denies behavioral changes, Denies depression, Denies memory loss and Denies panic attacks Luis F/Lymph Denies easy bleeding and Denies easy bruising Aller/Immun Denies wheezing Physical exam (Primary Care) Vital Signs: Last Vital Signs Temp 97.1 F 06/12/25 09:32 Pulse 85 06/12/25 09:32 BP 140/90 H 06/12/25 10:07 Pulse Ox 97 06/12/25 09:32 Oxygen Delivery Method Room Air 06/12/25 09:32 Care Plan Goal for BP management: Consider starting low-dose lisinopril for renal protection and blood pressure control Next steps: Will monitor blood pressure at home with goal blood pressure to be below 140/90 BMI result Body Mass Index 28.4 Tobacco/Smoking Status: Tobacco use Status Tobacco use date assessed 06/12/25 06/12/25 09:37 Patient Tobacco Use Status Never used Tobacco 06/12/25 09:37 e-Cigarette/Vaping Use Never Used 06/12/25 09:37 PHQ-9: PHQ-9 Score PHQ-9: Total score 1 06/12/25 10:25 Depression Screening Interpretation: Negative Thrive Assessment: Date of Thrive Assessment Date Thrive assessed 09/10/24 06/12/25 09:37 Currently or been in a relationship where the following occur: No concerns reported Const General: healthy appearing, no acute distress, alert and awake Nutritional Appearance: well nourished Orientation/consciousness: oriented to person, oriented to place and oriented to time HENMT Ears: TM's normal bilaterally General nose exam: Normal nasal mucous membranes and turbinates present Eyes Conjunctivae: conjunctivae normal Sclerae: sclerae normal Pupils: Equal, round and reactive pupils present Neck Neck: Yes no lymphadenopathy and Yes no JVD Thyroid: Thyroid normal Carotids: no bruits Resp Effort & Inspection: normal respiratory effort and not tachypneic Auscultation: no crackles, no rales, no rhonchi and no wheezes Cardio Rate: regular rate Rhythm: regular rhythm Heart sounds: no murmurs and normal S1 and S2 GI Palpation (GI): Soft to palpation, nontender, no hepatomegaly and no splenomegaly Auscultation: normal bowel sounds Skin General skin exam: no rashes or lesions noted and dry skin Neuro General: oriented to person, oriented to place and oriented to time Cranial nerves: Yes Equal, round and reactive pupils present Speech: No Abnormal speech present Gait exam (Neuro): Normal gait present Motor exam (neuro): no tremor noted Extrem Right upper extremity: full ROM Left upper extremity: full ROM Right lower extremity: full ROM; no edema Left lower extremity: full ROM; no edema Psych Mental Status: mental status grossly normal Speech and movement: Normal speech and movement present Affect: normal affect Attitude: cooperative Thought process: Normal thought process present Office Procedures Flu Questionnaire Does the patient have a severe egg allergy?: No Does the patient have severe life threatening allergies?: No Does the patient have a fever or illness today?: No Has the patient ever had Guillain-Trenary Syndrome?: No Has the patient ever had any past reaction to a flu shot?: No Results AMB Hemoglobin A1c AMB Hemoglobin A1c 6.0 % Last Edit by GREYSON Knight on 06/12/25 09:47 Immunizations Fluarix [id number] (PF) 45 mcg (15 mcg x 3)/0.5 mL IM syringe Performing Provider: Daron Pardo PA-C [place] [facility] [place] [facility] Administered by: Gabby Tinsley LPN on 06/12/25 10:25 Dose Route Admin Location Dispensed Lot Number Expiration Date [facility] Feather Edger 0.5 mL IM Left Deltoid 0.5 mL [id number] 03/03/26 [id number] [employer] VIS Given Date VIS Provided VIS Publication Date 06/12/25 Single Vaccine 24 Eligibility Eligibility Date Funding Source Not [facility] Eligible 06/12/25 Private Results Reviewed Results Reviewed: Laboratory Last Values Hgb A1c (Clinic) 6.0 % (4.0-6.0) 06/12/25 09:37 Coding Level of Care Code Est Pt Level 4 (21565) Diagnoses Type 2 diabetes mellitus without complication, without long-term current use of insulin E11.9 Diabetes mellitus complication status: without complication 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 home use Nonspecific dizziness R42 Nonintractable epilepsy without status epilepticus, unspecified epilepsy type G40.909 Epilepsy type: unspecified Intractability: not intractable Status epilepticus: without status epilepticus Pure hypercholesterolemia E78.00 Hyperlipidemia type: pure hypercholesterolemia Elevated blood pressure reading R03.0 Additional Codes PHQ-9 - 18559 - PHQ-9 Billing: Yes ([id number]) Assessment & Plan Assessment & Plan (1) DMII (diabetes mellitus, type 2): Code(s): E11.9 - Type 2 diabetes mellitus without complications Category: Medical Qualifiers: Diabetes mellitus complication status: without complication 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 home use Qualified Code(s): E11.9 - Type 2 diabetes mellitus without complications Plan: Patient's type 2 diabetes now well controlled. Today's A1c is 6.0. Will reduce his dose of Ozempic to 0.25 mg weekl to help reduce the reoccurrence of dizziness if this is the cause. He will continue in his diabetic low- carbohydrate diet . Goal A1c is to be below 7.0 (2) Nonspecific dizziness: Code(s): R42 - Dizziness and giddiness Category: Medical Plan: The plan includes conducting a cardiac stress test to evaluate for potential cardiovascular issues, given the family history of heart disease. Additionally, medication levels for Depakote and Lamictal will be checked to assess if they are contributing to the dizziness and nausea. Consideration will be given to adjusting the dosage of Ozempic to see if it alleviates symptoms, as it may be affecting the absorption of other medications. The patient is advised to monitor blood pressure at home, and the potential use of lisinopril for kidney protection will be evaluated based on future readings. The patient is encouraged to follow up with a neurologist to discuss the possibility of EEG testing to rule out seizure-related causes for the dizziness. [facility] paperwork will be completed to protect the patient's employment due to health-related absences. (3) Epilepsy: Comment: last seizure > 6 yrs ago. h/o VPN. Code(s): G40.909 - Epilepsy, unspecified, not intractable, without status epilepticus Category: Medical Qualifiers: Epilepsy type: unspecified Intractability: not intractable Status epilepticus: without status epilepticus Qualified Code(s): G40.909 - Epilepsy, unspecified, not intractable, without status epilepticus Plan: Continues without any seizure activity for quite some time now. Current antiepileptic medication has been very effective. (4) HLD (hyperlipidemia): Code(s): E78.5 - Hyperlipidemia, unspecified Category: Medical Qualifiers: Hyperlipidemia type: pure hypercholesterolemia Qualified Code(s): E78.00 - Pure hypercholesterolemia, unspecified Plan: Patient continues with high-dose statin therapy with good effect. Most recent lipid panel showing excellent control of his total cholesterol and LDL. Goal LDL is to remain below 100 (5) Elevated blood pressure reading: Code(s): R03.0 - Elevated blood-pressure reading, without diagnosis of hypertension Category: Medical Plan: Noted elevated blood pressure reading today in office which is unusual for this patient. We discuss perhaps starting lisinopril for renal protection due to his diabetes though will like to hold off on this for now and monitor blood pressure at home. Goal blood pressures to be below 140/90 Plan Goal: A1c to be below 7.0, LDL to be below 100. Barriers: Adherence to physical activity and healthy eating habits Orders: Orders Influenza [id number] Immunization Today Z23 - Encounter for immunization CA stress test Today R42 - Dizziness and giddiness Valproate Today G40.909 - Epilepsy, unspecified, not intractable, without status epilepticus Comprehensive [place]. Panel Fast Today E11.9 - Type 2 diabetes mellitus without complications Complete Blood Count no Diff Today E11.9 - Type 2 diabetes mellitus without complications Lipid Panel Today E78.00 - Pure hypercholesterolemia, unspecified AMB Hemoglobin A1c Today Z13.9 - Encounter for screening, unspecified Lamotrigine Lamictal Today G40.909 - Epilepsy, unspecified, not intractable, without status epilepticus Vitamin B12 and Folate Today E53.8 - Deficiency of other specified B group vitamins, R42 - Dizziness and giddiness Magnesium Today R42 - Dizziness and giddiness Zinc Today R42 - Dizziness and giddiness Lyme IgG/IgM w/reflex to WB Today R42 - Dizziness and giddiness
[2025-06-12 10:07] VITALS: BP 140/90
== END 2025-06-12 10:27 | disposition home or self-care (01) ==
LOC: HO.HMCH 09:22
PROVIDERS: PCP Physician Assistant; Visit Provider Physician Assistant
DX: E11.9 Type 2 diabetes mellitus without complications (principal); R42 Dizziness and giddiness; G40.909 Epilepsy, unspecified, not intractable, without status epilepticus; E78.00 Pure hypercholesterolemia, unspecified; R03.0 Elevated blood-pressure reading, without diagnosis of hypertension; Z23 Encounter for immunization; Z13.9 Encounter for screening, unspecified

== ENCOUNTER 2025-06-12 12:39 | Outpatient (AMB) | payer OTHER, SELFPAY ==
--- NOTE | 2025-06-12 13:00 | A.OFFVIS_ITS ---
Vital Signs 06/12/25 13:01 Height 5 ft 9 in Weight 192 lb 4 oz BMI 28.4 BP 122/86 Blood Pressure Location Lt brachial Position Sitting Pulse 82 Pulse Source Pulse Oximeter Pulse Oximetry (%) 94 Oxygen Delivery Method Room Air Intake Visit Reasons: 6 MO FU Intake Note: Patient presents follow up Sleep. 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 Patient reports he has had episodes of external spinning or not right in space dizziness a/w blurry vision, paleness, nausea and vomiting, activity intolerance, which lasts 1-2 days. This can come when walking straight, sitting down, or laying still in bed. He treats this by sleeping, sometimes sleeping 6-7 hours helps, but sometimes not. This started in December without known precipiatting cause- no known infection, accident, travel. He went to [facility] twice, where head CT, head CTA was unremarkable. Saw PCP earlier today, and had f/u labs drawn- depaoket levele 82 WNL, lamotrigene level pending. Denies associated headache, migraine, photophobia, phonophobia, abd pain, or seizure like activity Denies interictal diplopia, blurry vision, vision changes. States he has an occasional migraine, not associated w/ dizziness. He is drinking a lot of water. He has stopped Creon, feels his digestion is better. On Wegovy with weight loss, but then some weight gain. Pt denies any interval seizure activity. Last seizure was 7 yrs ago. Complaint w/ Lamictal and Depakote- taking q 8am and 8pm. No rashes, skin changes. 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 Sleeps well during the day. [facility] Medical History Abdominal discomfort Dyspepsia Colitis Left wrist tendinitis Seizures Colitis Diabetes Elevated cholesterol Infection of nose Cellulitis Family history of coronary arteriosclerosis Surgical History H/O colonoscopy History of cholecystectomy Family History Mother No problems noted. Father Prostate cancer Maternal Uncle CAD (coronary artery disease) Paternal Uncle Bone cancer Paternal Aunt Ovarian cancer Paternal Aunt Thyroid cancer Paternal Aunt Breast cancer Other Mental health disorder Social History Housing: House Alcohol intake: current Alcohol intake frequency: holidays/special occasions only Patient Tobacco Use Status: Never used Tobacco e-Cigarette/Vaping Use: Never Used Second Hand Smoke Exposure: Yes service: No Current occupational status: employed Current occupation: [employer] Cognitive needs: No Hearing needs: No Vision needs: No Physical Exam Vital Signs: Last Vital Signs Pulse 82 06/12/25 13:01 BP 122/86 06/12/25 13:01 Pulse Ox 94 06/12/25 13:01 Oxygen Delivery Method Room Air 06/12/25 13:01 BMI result Body Mass Index 28.4 Const General: cooperative and no acute distress Orientation/consciousness: patient oriented x3 Resp Effort & Inspection: normal respiratory effort and able to speak in complete sentences Neuro General: patient oriented x3 Cranial nerves: Yes CN's II-XII intact bilaterally, Yes Bilaterally intact EOM present and Yes Nystagmus not present Cognition (Neuro): normal cognition Deep tendon reflexes (DTR's): Right triceps reflex intensity grade: 2+, Left triceps reflex intensity grade: 2+, Rt Biceps (C5, C6): 2+, Left biceps reflex intensity grade: 2+, Right brachioradialis reflex intensity grade: 2+, Left brachioradialis reflex intensity grade: 2+, Right patellar reflex intensity grade: 1+ and Left patellar reflex intensity grade: 1+ Coordination: [id number] test normal, [id number] test normal and tandem gait normal Romberg Test: Negative Psych Appearance: grossly normal Mental Status: mental status grossly normal Speech and movement: Normal speech and movement present Affect: normal affect Attitude: cooperative Results AMB Hemoglobin A1c AMB Hemoglobin A1c 6.0 % Last Edit by GREYSON Knight on 06/12/25 09:47 Assessment & Plan Assessment & Plan (1) Epilepsy: Comment: last seizure > 6 yrs ago. h/o VPN. 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 Cardiology workup as ordered by PCP. Patient is advised to undergo brain MRI with and without contrast, to assess for secondary underlying central etiologies of nonpositional vertigo. For now: * Continue Lamotrigine 100mg every 12 hrs * Continue Valproate 1000 mg every 12 hrs * Melatonin prn- for sleep. Pt advised to NOT drive within 6 months of any seizure activity w/ AMS. Previous AED trials: Keppra caused severe mood changes. Phenytoin caused confusion/syncope. Topiramate- unsure effect. For migraine: Continue valproate 1000 mg every 12 hours as above. Continue ibuprofen 600 mg every 6 hours as needed. Trial ondansetron 4 mg tablet, 1 tablet twice a day as needed for migraine with nausea and vomiting. Trial Ubrogepant (Ubrelvy) 100mg tab: * Take Ubrogepant 1/2 - 1 tab (50-100mg) at onset of headache. * You may repeat the dose in 2 hours. Max of 2 tabs (200mg) per 24 hours. * You may take Ubrogepant with OTC Tylenol 650mg q 4 hours, Ibuprofen (liquid gel) 600mg q 6 hours, or Naproxen (liquid gel) 440mg q 12 hrs as needed. * Do not take Ubrogepant with or within 5 days of taking Butalbital (Fioricet or Fiorinal). * Possible adverse effects of Ubrogepant include, but are not limited to, fatigue, nausea, dry mouth, constipation. * This medication likely will require an insurance prior authorization before you will be able to receive this from your pharmacy. ? * We will initiate the prior authorization process per your specific health insurance's requirements. ? * However, please note, that your health insurance belongs to you, and you may also need to communicate with your insurance company in order for the prior authorization request to be processed. ?it is possible that you will also need to speak to your insurance regarding requesting the prior authorization Migraine treatment contraindications: All triptans and DHE due to seizure diagnosis, HLD Pt to f/u in 6 months or sooner prn. Addendum 06/12/2025, lamotrigine level 5.2, mildly elevated Called and spoke to patient and , and discuss trying to wean patient off of lamotrigine, and start an alternate AED, such as lacosamide. For example: Decreasing lamotrigine to 75 mg b.i.d. times 7 days, then 50 mg b.i.d. x7 days then 25 mg b.i.d. x7 days, then 25 mg q.h.s., then stopped. At the same time, start lacosamide 50 mg b.i.d. x7 days, then lacosamide 100 mg b.i.d., and if tolerated, increase lacosamide to 150-200mg b.i.d. Would add a prn clonazepam ODT 2 mg for seizure activity lasting greater than 2 minutes. Upon discussion, patient and prefer to wait until after completion of the above workup. If the above workup is unremarkable, then we will proceed with this plan. Due to the patient's work setting, they will discuss with his HR department arranging for a 4-6 week medical FAWN while patient undergoes AED cross titration. Patient may also want to consider an OTC seizure Alert device during this time Orders: Orders MR head/brain wo/w con 06/12/25 R42 - Dizziness and giddiness, G40.909 - Epilepsy, unspecified, not intractable, without status epilepticus Medications: New ubrogepant (Ubrelvy) take at onset of migraine, may repeat in 2hrs (may take w/ Ibuprofen) 50 - 100 mg (0.5 - 1 x 100 mg) PO ONCE PRN 16 tabs 6RF migraine headache 30 days ondansetron HCl 4 mg PO BID PRN 60 tabs 3RF nausea and vomiting 30 days Coding Level of Care Code Est Pt Level 4 (39988) Complex EM visit Add On G2211 Diagnoses Nonintractable epilepsy without status epilepticus, unspecified epilepsy type G40.909 Epilepsy type: unspecified Intractability: not intractable Status epilepticus: without status epilepticus Shift work sleep disorder G47.26 Nonspecific dizziness R42
[2025-06-12 13:01] VITALS: BP 122/86; PULSE 82; O2SAT 94; BMI 28.4
== END 2025-06-12 14:06 | disposition home or self-care (01) ==
PROVIDERS: PCP Physician Assistant; Visit Provider Nurse Practitioner Family
DX: G40.909 Epilepsy, unspecified, not intractable, without status epilepticus (principal); G47.26 Circadian rhythm sleep disorder, shift work type; R42 Dizziness and giddiness
CPT/HCPCS: 99214

== ENCOUNTER → 2025-08-07 08:12 | Outpatient (REF) | payer OTHER, SELFPAY ==
--- NOTE | 2025-08-07 08:15 | CA_ITS ---
Acquisition Time: 2025-08-07 08:53:11 Total Exercise Time: 00:08:00 Test Indications: DIZZINESS Medications: ATORVASTATIN Protocol: LALIT Max HR: 148 BPM 85% of Pred: 174 BPM Max BP: 148/80 mmHG Max Work Load: 10.1 METS Exercise stress test with exercise 8 mins of Lalit Protocol, achieving 85% mPHR, with reports of 2/10 chest pain towards the end of exercise, reports of SOB, without any arrythmias, with normotensive response to exercise. With borderline ST changes not meeting criteria for ischemia. In recovery, chest pain resolved and breathing improved to baseline. Will recommend stress echo for further eval. Test reviewed with Dr. Coburn. Referred By: Daron Pardo Electronically Signed By: Channing Maxwell
== END ==
LOC: HO.CARD 08:12
PROVIDERS: PCP Physician Assistant; Visit Provider Physician Assistant
DX: R42 Dizziness and giddiness (principal)
CPT/HCPCS: 93017

== ENCOUNTER → 2025-08-07 08:15 | Outpatient (BNV) | payer OTHER, SELFPAY | PROVIDERS: PCP Physician Assistant | DX: R07.9 Chest pain, unspecified (principal); R06.02 Shortness of breath | CPT/HCPCS: 93016; 93018 ==